=== PATIENT | female | born 1975 | race Caucasian/White ===

== ENCOUNTER 2016-10-20 13:41 | Outpatient (RCR) | payer OTHER ==
[~2016-10-20 13:41] MED LIST: AMPH20TA2 PO; CLON0.5T3 PO; DESV100T PO
== END 2016-12-05 15:15 | disposition home or self-care (01) ==
PROVIDERS: ATTEND Nurse Practitioner Community Health
DX: M79.652 Pain in left thigh (principal)

== ENCOUNTER → 2016-12-22 | Outpatient (CLI) | payer OTHER ==
--- NOTE | 2016-12-22 16:31 | Diagnostic Imaging Report ---
INDICATION: Left lower back pain. TECHNIQUE: Multiple real time johnson scale sonographic images were obtained of the pelvis transabdominally and endovaginally. CORRELATION STUDY: None. FINDINGS: UTERUS/ENDOMETRIUM: Uterus measures 8.4 x 3.3 x 4.0 cm. Endometrial thickness is 6 mm. The uterus and endometrium appearing unremarkable. RIGHT OVARY: Not able to be visualized. LEFT OVARY: Not able to be visualized. Ovaries are not visualized on either transabdominal or endovaginal imaging. This may be owing to patient's reported underlying body habitus versus obscuration by bowel. No significant free pelvic fluid. IMPRESSION: 1. Uterus and endometrium appearing unremarkable. 2. Nonvisualization of either ovary. Dictated by: Dictated on workstation # [id number]
== END ==
LOC: RAD 15:38
PROVIDERS: ATTEND Nurse Practitioner Community Health
DX: R10.2 Pelvic and perineal pain (principal); M54.5 Low back pain
CPT/HCPCS: 76830; 76856

== ENCOUNTER → 2019-08-22 | Outpatient (CLI) | payer OTHER ==
--- NOTE | 2019-08-22 13:02 | Diagnostic Imaging Report ---
PROCEDURE: MRI lumbar spine without contrast. TECHNIQUE: Multiplanar, multisequence MRI of the lumbar spine was performed without contrast. INDICATION: Chronic low back pain. COMPARISON: None. FINDINGS: 5 lumbar type vertebral bodies are visualized with the last well-formed disc space designated L5-S1. No acute fracture or dislocation is seen in the lumbar spine. Alignment is anatomic. Vertebral body heights and disc spaces are well-maintained. The bone marrow signal is normal. The conus terminates at the T12-L1 level. No masses are seen associated with the conus or nerve roots of the cauda equina. No epidural collections are identified. Multilevel degenerative changes are seen in the lumbar spine with disc bulges, facet hypertrophy, and buckling of the ligamentum flavum. T12-L1: No significant spinal canal or foraminal stenosis. L1-L2: No significant spinal canal or foraminal stenosis. L2-L3: No significant spinal canal or foraminal stenosis. L3-L4: No significant spinal canal or foraminal stenosis. L4-L5: Broad-based disc bulge, facet hypertrophy, and buckling of the ligamentum flavum results in no significant spinal canal stenosis and mild bilateral foraminal narrowing. L5-S1: Broad-based disc bulge, facet hypertrophy, and buckling of the ligamentum flavum results in no significant spinal canal stenosis and mild to moderate foraminal stenosis. A synovial cyst is protruding posteriorly from the left L5-S1 facet. Paravertebral soft tissues are unremarkable. IMPRESSION: 1. No acute fracture or dislocation in the lumbar spine. 2. Multilevel degenerative changes in the lumbar spine, greatest at L4-L5 and L5-S1. Dictated by: Dictated on workstation # [id number]
== END ==
LOC: RAD 12:05
PROVIDERS: ATTEND Nurse Practitioner Community Health
DX: M47.817 Spondylosis without myelopathy or radiculopathy, lumbosacral region (principal)
CPT/HCPCS: 72148

== ENCOUNTER → 2019-11-27 | Outpatient (CLI) | payer OTHER ==
[~2019-11-27] MED LIST changes: +BARIUM for suspension 96% w/w (Vanilla Silq Medium Density) PO ONE; +BARIUM for suspension 98% w/w (Vanilla Silq High Density) PO ONE
--- NOTE | 2019-11-27 11:38 | Diagnostic Imaging Report ---
INDICATION: Dysphagia. TECHNIQUE: The patient ingested effervescent crystals as well as thin and thick barium and imaging over the esophagus was performed in multiple obliquities. FINDINGS: The esophagus has a smooth contour. No mass or stricture is identified. No hiatal hernia or gastroesophageal reflux was demonstrated. IMPRESSION: Unremarkable esophagram. Dictated by: Dictated on workstation # [id number]
== END ==
LOC: RAD 08:46
PROVIDERS: ATTEND Surgery
DX: R47.02 Dysphasia (principal)
CPT/HCPCS: 74220

== ENCOUNTER 2019-12-02 10:12 | Outpatient (RCR) | payer OTHER ==
[~2019-12-02] VITALS: Ht 154 cm; Wt 118.0 kg
[~2019-12-02 10:12] MED LIST changes: -BARIUM for suspension 96% w/w (Vanilla Silq Medium Density) PO ONE; -BARIUM for suspension 98% w/w (Vanilla Silq High Density) PO ONE; +BUPR300T43 PO; +CLON0.5T4 PO
[2019-12-03] MEDS ORDERED: PANT40TA2 PO (13:21)
== END 2020-02-24 | disposition home or self-care (01) ==
LOC: PREOP 10:12
PROVIDERS: ATTEND Surgery
DX: Z01.818 Encounter for other preprocedural examination (principal); Z01.812 Encounter for preprocedural laboratory examination; K21.9 Gastro-esophageal reflux disease without esophagitis; R13.10 Dysphagia, unspecified; Z20.828 Contact with and (suspected) exposure to other viral communicable diseases
CPT/HCPCS: 87635

== ENCOUNTER 2019-12-03 12:24 | Day surgery (SDC) | payer OTHER ==
[2019-12-03] MEDS ORDERED: LACTATED RINGERS 1,000 ML IV ONE (12:28)
[2019-12-03] MEDS ORDERED: LACTATED RINGERS 1,000 ML IV STA (12:28)
[2019-12-03 12:30] VITALS: BP 125/73
[2019-12-03] MEDS ORDERED: proPOfol 200 MG/20 ML (DIPRIVAN) VIAL IV ONE ×2 (12:46→13:07)
[2019-12-03] MEDS ORDERED: MIDAZOLAM 2 MG/2 ML (VERSED) VIAL ONE (12:47)
[2019-12-03] MEDS ORDERED: HURRICAINE EXT TUBE (BENZOCAINE) XX ONE (13:00)
--- NOTE | 2019-12-03 13:02 | Progress Note-Pre Operative ---
Pre-Operative Progress Note H&P Reviewed The H&P was reviewed, patient examined and no changes noted. Date Seen by Provider: Dec 03, 2019 Time Seen by Provider: 13:02 Date H&P Reviewed: Dec 03, 2019 Time H&P Reviewed: 13:02 Pre-Operative Diagnosis: gerd, dysphagia ABDULLAHI WHITE DO Dec 03, 2019 13:02
[2019-12-03 13:15] VITALS: BP 105/57
[2019-12-03 13:20] VITALS: BP 107/53
--- NOTE | 2019-12-03 13:20 | Progress Note-Post Operative ---
Post-Operative Progess Note Surgeon (s)/[facility] (s) Surgeon ABDULLAHI WHITE DO [facility]: na Pre-Operative Diagnosis gerd, dysphagia Post-Operative Diagnosis gastritis Procedure & Operative Findings Date of Procedure 12/03/19 Procedure Performed/Findings egd c biopsies Anesthesia Type per [facility] Estimated Blood Loss Estimated blood loss (mL): none Specimens/Packing Specimens Removed antrum, body, ge ABDULLAHI WHITE DO Dec 03, 2019 13:20
[2019-12-03] MEDS ORDERED: PANT40TA2 PO (13:21)
--- NOTE | 2019-12-03 13:22 | Discharge Inst-Simple/Standard ---
Discharge Inst-Standard Discharge Medications New, Converted or Re-Newed RX: Transmitted to Pharmacy Patient Instructions/Follow Up Plan of Care/Instructions/FU: 2 weeks Thelma Activity as Tolerated: Yes Discharge Diet: Regular Diet ABDULLAHI WHITE DO Dec 03, 2019 13:21
[2019-12-03 13:25] VITALS: BP 107/53
--- NOTE | 2019-12-03 13:49 | Anesthesia-General Post-Op ---
MAC Patient Condition Mental Status/LOC: Same as Preop Cardiovascular: Satisfactory Nausea/Vomiting: Absent Respiratory: Satisfactory Pain: Controlled Complications: Absent Post Op Complications Complications None Follow Up Care/Instructions Patient Instructions None needed. Anesthesiology Discharge Order Discharge Order Patient was seen after the procedure and she was doing well, no complaints, stable vital signs, no apparent adverse anesthesia problems. ROGER REDDY DO Dec 03, 2019 13:49
[2019-12-03 13:50] VITALS: BP 110/62
--- OUTSIDE RECORDS SUMMARY | 2019-12-03 14:08 | XMS REPORT ---
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 Role Phone АНДРЕЙ White Unavailable PROBLEMS Type Condition ICD9-CM Code AHP76-AV Code Onset Dates Condition S tatus SNOMED Code Problem Hypertriglyceridemia E78.1 Active 066441317 Problem Obesity E66.9 Active 838313756 Problem Establishing care with new doctor, encounter for Z 71.89 Active 141581806 Problem Family history of early CAD Z82.49 Ac tive 199557310 Problem Fatigue R53.83 Active 61580687 Problem Ganglion cyst of left foot M67.472 Act olivia 816475162 Problem Finger fracture S62.609A Active 1817 1007 Problem Anxiety disorder, unspecified F41.9 Active 135692405 Problem Lumbago with sciatica, left side M54.42 Active 191771578 Problem Weakness R53.1 Active 36096827 Problem Other chronic pain G89.29 Active 8 1202139 Problem Family history of diabetes mellitus Z83.3 Active 832116373 Problem Attention deficit hyperactivity disorder F90.9 Active 672413346 Problem Major depressive disorder, recurrent episode wit h anxious distress F33.9 Active 48674610 Problem Menstrual migraine without status migrainosus, n ot intractable G43.829 Active 88375796 Problem Mixed hyperlipidemia E78.2 Active 558840182 ALLERGIES No Information ENCOUNTERS Encounter Location Date Diagnosis [facility] [address] [id number] [place] [address] Jun, [facility] [id number] [place] [address] Apr, Hypertriglyceridemia E78.1 and Hyperglyc emia R73.9 [facility] [id number] [place] [address] Apr, Lumbago with sciatica, left side M54.42 ; Other chronic pain G89.29 ; Family history of diabetes mellitus Z83.3 ; Mixed hyperlipidemia E78.2 ; Joint stiffness M25.60 ; Encounter for immunization Z23 and Breast cancer screening by mammogram Z12.31 [place] [address] [address] 20 Nov, 2018 Family history of early CAD Z82.49 ; Fam rosa history of diabetes mellitus Z83.3 and Fatigue R53.83 [place] [address] [address] 18 Nov, 2018 Encounter for screening mammogram for br east cancer Z12.31 ; Menstrual migraine without status migrainosus, not intractable G43.829 ; BMI 50.0-59.9, adult Z68.43 ; Family history of diabetes mellitus Z83.3 ; Family history of early CAD Z82.49 and Fatigue R53.[address] [address] 16 Jun, 2017 Attention deficit hyperactivity disorder F90.[address] [address] 02 Jun, 2017 Attention deficit hyperactivity disorder F90.9 ; Major depressive disorder, recurrent episode with anxious distress F33.9 and BMI 45.0-49.9, adult Z68.[address] [address] May, Major depressive disorder, recurrent epi sode with anxious distress F33.9 [place] [address] [address] Apr, Major depressive disorder, recurrent epi sode with anxious distress F33.9 and Attention deficit hyperactivity disorder F90.9 [place] [address] [address] Apr, [address] [address] Mar, Attention deficit hyperactivity disorder F90.9 and Major depressive disorder, recurrent episode with anxious distress F33.9 [place] [address] [address] Jan, [place] [address] [address] Dec, Anxiety disorder, unspecified F41.9 ; At tention deficit hyperactivity disorder F90.9 and Major depressive disorder, recurrent episode with anxious distress F33.9 [place] [address] [address] Dec, Acute midline low back pain without scia kirti M54.5 [place] [address] [address] Dec, [place] [address] [address] Dec, Pelvic pain R10.2 and Acute midline low back pain without sciatica M54.5 [place] [address] [address] Nov, [place] [address] [address] October, [place] [address] [address] October, [place] [address] [address] Sep, Well woman exam Z01.419 and Cervical can cer screening Z12.4 [place] [address] [address] Sep, [place] [address] [address] Sep, Plantar fasciitis, right M72.2 ; Left fo ot pain M79.672 and Trigger point of left side of body M79.1 [place] [address] [address] Aug, [place] [address] [address] Aug, Anxiety disorder, unspecified F41.9 ; At tention deficit hyperactivity disorder F90.9 and Major depressive disorder, recurrent episode with anxious distress F33.9 [facility] [address] [address] Jul, [facility] [address] [address] Jun, Attention deficit disorder of adult with hyperactivity F90.9 and Major depressive disorder, recurrent episode with anxious distress F33.9 [facility] [address] [place] [id number] [place] [address] Feb, Anxiety disorder, unspecified F41.9 ; Ma valencia depression F32.9 and Attention deficit hyperactivity disorder F90.9 [facility] [address] [id number] [place] [address] Jan, [place] [address] [address] Dec, [facility] [address] [address] Nov, [facility] [address] [address] October, Fatigue, unspecified type R53.83 [facility] [address] [address] October, [facility] [address] [address] October, Finger fracture S62.609A [facility] [address] [address] Sep, [facility] [address] [address] Sep, Finger fracture S62.609A [facility] [address] [address] Sep, [facility] [address] [address] Sep, [facility] [id number] [place] [address] Aug, Establishing care with new doctor, sana carrillo for Z71.89 ; Fatigue R53.83 ; Weakness R53.1 ; Ganglion cyst of left foot M67.472 ; Obesity E66.9 ; Family history of diabetes mellitus Z83.3 and Family history of early CAD Z82.49 [facility] [address] [address] 16 Aug, 2015 [facility] [address] [facility] [id number] [place] [address] 14 Aug, 2015 Fatigue R53.83 [place] [address] [address] Aug, Anxiety disorder, unspecified F41.9 ; Ma valencia depression F32.9 and Attention deficit hyperactivity disorder F90.9 [place] [address] [address] Jul, [place] [address] [address] Jun, [place] [address] [address] May, [place] [address] [address] Apr, [place] [address] [address] Apr, Attention deficit hyperactivity disorder F90.9 ; Major depression F32.9 and Anxiety disorder, unspecified F41.9 [place] [address] [address] Mar, [place] [address] [address] Mar, [facility] [address] [address] Feb, [place] [address] [place] [address] [place] [address] Feb, ADHD (attention deficit hyperactivity di sorder) 314.01 ; Major depressive disorder, recurrent episode, moderate 296.32 and Anxiety state, unspecified 300.00 [facility] [id number] [place] [address] Jan, [facility] [address] [address] Dec, [facility] [address] [address] Nov, [facility] [address] [address] October, [facility] [address] [address] October, Anxiety state, unspecified 300.00 ; Atte ntion deficit disorder of childhood with hyperactivity 314.01 and Major depressive disorder, recurrent episode, moderate 296.32 [facility] [address] [id number] [place] [address] Sep, [facility] [address] [address] Sep, [facility] [address] [address] Aug, [facility] [address] [address] Aug, [facility] [address] [address] Jul, [facility] [address] [address] Jul, [facility] [address] [address] October, [facility] [address] [address] October, [facility] [address] [address] October, [facility] [id number] [place] [address] October, [facility] [id number] [facility] [place] [address] October, [facility] [id number] [facility] [place] [address] Sep, [facility] [id number] [place] [address] Sep, [facility] [id number] [place] [address] Sep, [facility] [id number] [place] [address] Sep, [facility] [id number] [place] [address] Dec, [facility] [id number] [place] [address] Dec, [facility] [id number] [place] [address] Nov, [facility] [id number] [place] [address] Nov, [facility] [id number] [place] [address] Nov, [facility] [id number] [place] [address] Nov, [facility] [id number] [place] [address] Jul, [facility] [id number] [place] [address] Jul, [facility] [id number] [place] [address] Jul, [facility] [id number] [place] [address] Jul, [facility] [id number] [place] [address] 17 Mar, 2011 [facility] [id number] [place] [address] 14 Mar, 2011 [facility] [id number] [place] [address] 14 Mar, 2011 [facility] [id number] [place] [address] 11 Mar, 2011 [facility] [address] [address] 11 Mar, 2011 [facility] [id number] [place] [address] 14 May, 2010 [facility] [id number] [place] [address] 14 May, 2010 [facility] [id number] [place] [address] May, [facility] [id number] [place] [address] Mar, [facility] [id number] [place] [address] Mar, [facility] [id number] [place] [address] May, IMMUNIZATIONS No Known Immunizations SOCIAL HISTORY Never Assessed REASON FOR VISIT PLAN OF CARE VITAL SIGNS Height 62 in 2013-10-07 Weight 225.7 lbs 2013-10-07 Temperature 97.3 degrees Fahrenheit 2013-10-07 Heart Rate 80 bpm 2013-10-07 Respiratory Rate 18 2013-10-07 Blood pressure systolic 112 mmHg 2013-10-07 Blood pressure diastolic 74 mmHg 2013-10-07 MEDICATIONS Unknown Medications RESULTS No Results PROCEDURES Procedure Date Ordered Result Body Site SCR PAP SMER;NEW PT OBTAIN PREP&CONVY-LAB October 07, 2013 CYTOPATH C/V AUTO FLUID REDO October 07, 2013 INSTRUCTIONS MEDICATIONS ADMINISTERED No Known Medications MEDICAL (GENERAL) HISTORY Type Description Date Medical History ADD Medical History Depression Medical History High cholesterol Medical History Vitamin D deficiency Surgical History Baby #1 , or section 0 08/21/1997 Surgical History 1997 Surgical History Left ankle surgery Surgical History Tubal ligation 03/12/2002 Surgical History Left Ankle 01/10/1984 Hospitalization History Stitches in right hand finger next t o pinky Hospitalization History Surgery
--- OUTSIDE RECORDS SUMMARY | 2019-12-03 14:08 | XMS REPORT ---
Author Author Sirisha White Organization [facility] Address [address] [place] [address] Care Team Providers Care Plastics Process Hand Name Role Phone АНДРЕЙ White Unavailable PROBLEMS Type Condition ICD9-CM Code UPE68-HZ Code Onset Dates Condition S tatus SNOMED Code Problem Hypertriglyceridemia E78.1 Active 810133602 Problem Obesity E66.9 Active 469780220 Problem Establishing care with new doctor, encounter for Z 71.89 Active 242545509 Problem Family history of early CAD Z82.49 Ac tive 529900595 Problem Fatigue R53.83 Active 51234510 Problem Ganglion cyst of left foot M67.472 Act olivia 940231121 Problem Finger fracture S62.609A Active 1817 1007 Problem Anxiety disorder, unspecified F41.9 Active 381230181 Problem Lumbago with sciatica, left side M54.42 Active 380873690 Problem Weakness R53.1 Active 54018733 Problem Other chronic pain G89.29 Active 8 8467127 Problem Family history of diabetes mellitus Z83.3 Active 323917188 Problem Attention deficit hyperactivity disorder F90.9 Active 375486231 Problem Major depressive disorder, recurrent episode wit h anxious distress F33.9 Active 79479553 Problem Menstrual migraine without status migrainosus, n ot intractable G43.829 Active 46153714 Problem Mixed hyperlipidemia E78.2 Active 920341331 ALLERGIES No Information ENCOUNTERS Encounter Location Date Diagnosis [facility] [id number] [place] [address] Jul, [facility] [address] [address] Jul, Hyperglycemia R73.9 and Hypertriglycerid emia E78.1 [facility] [address] [id number] [place] [address] Jun, [place] [address] [address] Apr, Hypertriglyceridemia E78.1 and Hyperglyc emia R73.[address] [address] 04 Apr, 2019 Lumbago with sciatica, left side M54.42 ; Other chronic pain G89.29 ; Family history of diabetes mellitus Z83.3 ; Mixed hyperlipidemia E78.2 ; Joint stiffness M25.60 ; Encounter for immunization Z23 and Breast cancer screening by mammogram Z12.[address] [address] 20 Nov, 2017 Family history of early CAD Z82.49 ; Fam rosa history of diabetes mellitus Z83.3 and Fatigue R53.[address] [address] 18 Nov, 2017 Encounter for screening mammogram for br east cancer Z12.31 ; Menstrual migraine without status migrainosus, not intractable G43.829 ; BMI 50.0-59.9, adult Z68.43 ; Family history of diabetes mellitus Z83.3 ; Family history of early CAD Z82.49 and Fatigue R53.[address] [address] 16 Jun, 2017 Attention deficit hyperactivity disorder F90.[address] [address] Jun, Attention deficit hyperactivity disorder F90.9 ; Major depressive disorder, recurrent episode with anxious distress F33.9 and BMI 45.0-49.9, adult Z68.[address] [address] May, Major depressive disorder, recurrent epi sode with anxious distress F33.[address] [address] Apr, Major depressive disorder, recurrent epi sode with anxious distress F33.9 and Attention deficit hyperactivity disorder F90.[id number] [place] [address] Apr, [place] [address] [address] Mar, Attention deficit hyperactivity disorder F90.9 and Major depressive disorder, recurrent episode with anxious distress F33.9 [place] [address] [address] Jan, [place] [address] [address] Dec, Anxiety disorder, unspecified F41.9 ; At tention deficit hyperactivity disorder F90.9 and Major depressive disorder, recurrent episode with anxious distress F33.9 [place] [address] [address] Dec, Acute midline low back pain without scia kirti M54.5 [place] [address] [address] Dec, [place] [address] [address] Dec, Pelvic pain R10.2 and Acute midline low back pain without sciatica M54.5 [place] [address] [address] Nov, [place] [address] [address] October, [place] [address] [address] October, [place] [address] [address] Sep, Well woman exam Z01.419 and Cervical can cer screening Z12.4 [place] [address] [address] Sep, [place] [address] [address] Sep, Plantar fasciitis, right M72.2 ; Left fo ot pain M79.672 and Trigger point of left side of body M79.1 [facility] [address] [address] Aug, [facility] [address] [address] Aug, Anxiety disorder, unspecified F41.9 ; At tention deficit hyperactivity disorder F90.9 and Major depressive disorder, recurrent episode with anxious distress F33.9 [facility] [address] [address] Jul, [facility] [address] [address] Jun, Attention deficit disorder of adult with hyperactivity F90.9 and Major depressive disorder, recurrent episode with anxious distress F33.9 [facility] [address] [address] Feb, Anxiety disorder, unspecified F41.9 ; Ma valencia depression F32.9 and Attention deficit hyperactivity disorder F90.9 [place] [address] [address] Jan, [place] [address] [address] Dec, [facility] [address] [address] Nov, [facility] [address] [address] October, Fatigue, unspecified type R53.83 [facility] [address] [address] October, [facility] [address] [address] October, Finger fracture S62.609A [facility] [address] [address] Sep, [facility] [address] [address] Sep, Finger fracture S62.609A [place] [address] [address] Sep, [place] [address] [address] Sep, [place] [address] [address] Aug, Establishing care with new doctorsana for Z71.89 ; Fatigue R53.83 ; Weakness R53.1 ; Ganglion cyst of left foot M67.472 ; Obesity E66.9 ; Family history of diabetes mellitus Z83.3 and Family history of early CAD Z82.49 [place] [address] [address] 16 Aug, 2015 [facility] [address] [facility] [id number] [place] [address] Aug, Fatigue R53.83 [place] [address] [address] Aug, Anxiety disorder, unspecified F41.9 ; Ma valencia depression F32.9 and Attention deficit hyperactivity disorder F90.9 [place] [address] [address] Jul, [place] [address] [address] Jun, [place] [address] [address] May, [place] [address] [address] Apr, [place] [address] [address] Apr, Attention deficit hyperactivity disorder F90.9 ; Major depression F32.9 and Anxiety disorder, unspecified F41.9 [place] [address] [address] Mar, [facility] [address] [address] Mar, [facility] [address] [address] Feb, [facility] [address] [address] Feb, ADHD (attention deficit hyperactivity di sorder) 314.01 ; Major depressive disorder, recurrent episode, moderate 296.32 and Anxiety state, unspecified 300.00 [facility] [address] [address] Jan, [facility] [address] [address] Dec, [facility] [address] [address] Nov, [facility] [address] [address] October, [facility] [address] [address] October, Anxiety state, unspecified 300.00 ; Atte ntion deficit disorder of childhood with hyperactivity 314.01 and Major depressive disorder, recurrent episode, moderate 296.32 [facility] [address] [address] Sep, [facility] [address] [address] Sep, [facility] [address] [address] Aug, [facility] [address] [address] Aug, [facility] [address] [address] Jul, [facility] [address] [address] Jul, [facility] [address] [id number] [place] [address] October, [facility] [place] [facility] [address] [id number] [place] [address] October, [facility] [place] [facility] [address] [id number] [place] [address] October, [facility] [place] [facility] [address] [id number] [place] [address] October, [facility] [place] [facility] [address] [id number] [place] [address] October, [facility] [place] [facility] [address] [id number] [place] [address] Sep, [facility] [place] [facility] [address] [id number] [place] [address] Sep, [facility] [place] [facility] [address] [id number] [place] [address] Sep, [facility] [place] [facility] [address] [id number] [place] [address] Sep, [facility] [place] [facility] [address] [id number] [place] [address] Dec, [facility] [place] [facility] [address] [id number] [place] [address] Dec, [facility] [place] [facility] [address] [id number] [place] [address] Nov, [facility] [place] [facility] [address] [id number] [place] [address] Nov, [facility] [place] [facility] [address] [id number] [place] [address] Nov, [facility] [place] [facility] [address] [id number] [place] [address] Nov, [facility] [place] [facility] [address] [id number] [place] [address] Jul, [facility] [place] [facility] [address] [id number] [place] [address] Jul, [facility] [address] [id number] [place] [address] Jul, [facility] [id number] [place] [address] Jul, [facility] [address] [id number] [place] [address] Mar, [facility] [id number] [place] [address] Mar, [facility] [id number] [place] [address] Mar, [facility] [id number] [place] [address] Mar, [facility] [id number] [place] [address] Mar, [facility] [id number] [place] [address] May, [facility] [id number] [place] [address] May, [facility] [id number] [place] [address] May, [facility] [id number] [place] [address] Mar, [facility] [id number] [place] [address] Mar, [facility] [id number] [place] [address] May, IMMUNIZATIONS No Known Immunizations SOCIAL HISTORY Never Assessed REASON FOR VISIT PLAN OF CARE VITAL SIGNS MEDICATIONS Unknown Medications RESULTS No Results PROCEDURES No Known procedures INSTRUCTIONS MEDICATIONS ADMINISTERED No Known Medications MEDICAL [...]
--- OUTSIDE RECORDS SUMMARY | 2019-12-03 14:08 | XMS REPORT ---
Author Author Sirisha BURT Organization [facility] Address [address] [place] [address] Care Team Providers Care Automotive Technology Instructor Name Role Phone RAMSES BURT Unavailable PROBLEMS Type Condition ICD9-CM Code VLA05-JI Code Onset Dates Condition S tatus SNOMED Code Problem Establishing care with new doctor, encounter for Z 71.89 Active 694488938 Problem Hypertriglyceridemia E78.1 Active 017460670 Problem Fatigue R53.83 Active 42923685 Problem Obesity E66.9 Active 607236115 Problem Family history of diabetes mellitus Z83.3 Active 748206903 Problem Family history of early CAD Z82.49 Ac tive 941944797 Problem Finger fracture S62.609A Active 1817 1007 Problem Anxiety disorder, unspecified F41.9 Active 784994271 Problem Attention deficit hyperactivity disorder F90.9 Active 716033330 Problem Mixed hyperlipidemia E78.2 Active 934834342 Problem Ganglion cyst of left foot M67.472 Act olivia 655348101 Problem Dysphagia, unspecified type R13.10 Ac tive 92729511 Problem Weakness R53.1 Active 79869449 Problem Major depressive disorder, recurrent episode wit h anxious distress F33.9 Active 42523405 Problem Menstrual migraine without status migrainosus, n ot intractable G43.829 Active 00142785 Problem Lumbago with sciatica, left side M54.42 Active 057739432 Problem Other chronic pain G89.29 Active 8 [id number] ALLERGIES No Information ENCOUNTERS Encounter Location Date Diagnosis [facility] [address] [facility] [id number] [address] [place] [id number] Sep, [facility] [address] [facility] [id number] [address] [place] [id number] Aug, Arthralgia, unspecified join t M25.50 [facility] [address] [facility] [id number] [address] [place] [id number] Aug, [place] [address] [place] [id number] [address] [place] [address] Aug, Dysphagia, unspecified type R13.10 [place] [address] [place] [id number] [address] [place] [id number] 04 Aug, 2019 Other dysphagia R13.19 ; Hyp ertriglyceridemia E78.1 ; Arthralgia, unspecified joint M25.50 ; Low back pain M54.5 and Other chronic pain G89.29 [place] [address] [address] Aug, [place] [address] [address] Jul, Hypertriglyceridemia E78.1 ; Arthralgia, unspecified joint M25.50 ; Other dysphagia R13.19 ; Low back pain M54.5 and Other chronic pain G89.29 [place] [address] [address] Jul, Hyperglycemia R73.9 and Hype rtriglyceridemia E78.1 [place] [address] [address] Jun, [place] [address] [address] Apr, Hypertriglyceridemia E78.1 a nd Hyperglycemia R73.9 [place] [address] [address] Apr, Lumbago with sciatica, left side M54.42 ; Other chronic pain G89.29 ; Family history of diabetes mellitus Z83.3 ; Mixed hyperlipidemia E78.2 ; Joint stiffness M25.60 ; Encounter for immunization Z23 and Breast cancer screening by mammogram Z12.[address] [address] Nov, 2018 Family history of early CAD Z82.49 ; Family history of diabetes mellitus Z83.3 and Fatigue R53.83 [place] [address] [place] [id number] [address] [place] [id number] 18 Nov, 2017 Encounter for screening mamm ogram for breast cancer Z12.31 ; Menstrual migraine without status migrainosus, not intractable G43.829 ; BMI 50.0-59.9, adult Z68.43 ; Family history of diabetes mellitus Z83.3 ; Family history of early CAD Z82.49 and Fatigue R53.83 [place] [address] [place] [id number] [address] [place] [id number] Jun, Attention deficit hyperactiv ity disorder F90.[address] [address] Jun, Attention deficit hyperactiv ity disorder F90.9 ; Major depressive disorder, recurrent episode with anxious distress F33.9 and BMI 45.0-49.9, adult Z68.42 [place] [address] [address] May, Major depressive disorder, r ecurrent episode with anxious distress F33.[address] [address] Apr, Major depressive disorder, r ecurrent episode with anxious distress F33.9 and Attention deficit hyperactivity disorder F90.9 [place] [address] [place] [id number] [address] [place] [id number] Apr, [place] [address] [place] [id number] [address] [place] [id number] Mar, Attention deficit hyperactiv ity disorder F90.9 and Major depressive disorder, recurrent episode with anxious distress F33.9 [place] [address] [place] [id number] [address] [place] [phone] Jan, [place] [address] [place] [id number] [address] [place] [id number] Dec, Anxiety disorder, unspecifie d F41.9 ; Attention deficit hyperactivity disorder F90.9 and Major depressive disorder, recurrent episode with anxious distress F33.9 [facility] [address] [id number] [address] [place] [id number] 17 Dec, 2016 Acute midline low back pain without sciatica M54.5 [facility] [address] [id number] [address] [place] [id number] Dec, [facility] [address] [id number] [address] [place] [id number] Dec, Pelvic pain R10.2 and Acute midline low back pain without sciatica M54.5 [facility] [address] [id number] [address] [place] [id number] Nov, [facility] [address] [id number] [address] [place] [id number] October, [place] [address] [id number] [address] [place] [id number] October, [facility] [address] [id number] [address] [place] [id number] Sep, Well woman exam Z01.419 and Cervical cancer screening Z12.4 [facility] [address] [id number] [address] [place] [id number] Sep, [facility] [address] [id number] [address] [place] [id number] Sep, Plantar fasciitis, right M72 .2 ; Left foot pain M79.672 and Trigger point of left side of body M79.1 [facility] [address] [id number] [address] [place] [id number] Aug, [facility] [address] [id number] [address] [place] [id number] Aug, Anxiety disorder, unspecifie d F41.9 ; Attention deficit hyperactivity disorder F90.9 and Major depressive disorder, recurrent episode with anxious distress F33.9 [facility] [address] [id number] [address] [place] [id number] Jul, [facility] [address] [id number] [address] [place] [id number] Jun, Attention deficit disorder o f adult with hyperactivity F90.9 and Major depressive disorder, recurrent episode with anxious distress F33.9 [facility] [address] [id number] [address] [place] [id number] Feb, Anxiety disorder, unspecifie d F41.9 ; Major depression F32.9 and Attention deficit hyperactivity disorder F90.9 [facility] [address] [id number] [address] [place] [id number] Jan, [facility] [address] [id number] [address] [place] [id number] Dec, [facility] [address] [id number] [address] [place] [id number] Nov, [facility] [address] [id number] [address] [place] [id number] October, Fatigue, unspecified type R5 3.83 [facility] [address] [id number] [address] [place] [id number] October, [facility] [address] [id number] [address] [place] [id number] October, Finger fracture S62.609A [facility] [address] [id number] [address] [place] [id number] Sep, [facility] [address] [id number] [address] [place] [address] Sep, Finger fracture S62.609A [facility] [address] [id number] [address] [place] [id number] Sep, [facility] [address] [id number] [address] [place] [id number] Sep, [facility] [address] [id number] [address] [place] [id number] 30 Aug, 2015 Establishing care with chi bourne lisandraor, encounter for Z71.89 ; Fatigue R53.83 ; Weakness R53.1 ; Ganglion cyst of left foot M67.472 ; Obesity E66.9 ; Family history of diabetes mellitus Z83.3 and Family history of early CAD Z82.49 [facility] [address] [facility] [id number] [address] [place] [id number] 16 Aug, 2015 [facility] [address] [facility] [id number] [address] [place] [id number] 14 Aug, 2015 Fatigue R53.83 [facility] [address] [facility] [id number] [address] [place] [id number] Aug, Anxiety disorder, unspecifie d F41.9 ; Major depression F32.9 and Attention deficit hyperactivity disorder F90.9 [facility] [address] [facility] [id number] [address] [place] [id number] Jul, [facility] [address] [facility] [id number] [address] [place] [id number] Jun, [facility] [address] [facility] [id number] [address] [place] [id number] May, [facility] [address] [facility] [id number] [address] [place] [id number] Apr, [facility] [address] [facility] [id number] [address] [place] [id number] Apr, Attention deficit hyperactiv ity disorder F90.9 ; Major depression F32.9 and Anxiety disorder, unspecified F41.9 [facility] [address] [facility] [id number] [address] [place] [id number] Mar, [facility] [address] [facility] [id number] [address] [place] [id number] Mar, [facility] [address] [facility] [id number] [address] [place] [id number] Feb, [facility] [address] [facility] [id number] [address] [place] [id number] 16 Feb, 2015 ADHD (attention deficit hype ractivity disorder) 314.01 ; Major depressive disorder, recurrent episode, moderate 296.32 and Anxiety state, unspecified 300.00 [facility] [address] [id number] [address] [place] [id number] Jan, [facility] [address] [id number] [address] [place] [id number] Dec, [facility] [address] [id number] [address] [place] [id number] Nov, [facility] [address] [id number] [address] [place] [id number] October, [facility] [address] [facility] [id number] [address] [place] [id number] October, Anxiety state, unspecified 3 00.00 ; Attention deficit disorder of childhood with hyperactivity 314.01 and Major depressive disorder, recurrent episode, moderate 296.32 [facility] [address] [id number] [address] [place] [id number] Sep, [facility] [address] [id number] [address] [place] [id number] Sep, [facility] [address] [facility] [id number] [address] [place] [id number] Aug, [facility] [address] [id number] [address] [place] [id number] Aug, [facility] [address] [id number] [address] [place] [id number] Jul, [facility] [address] [id number] [address] [place] [id number] Jul, [facility] [address] [facility] [id number] [address] [place] [id number] October, [facility] [address] [facility] [id number] [address] [place] [id number] October, [facility] [address] [id number] [address] [place] [address], [place] [address] October, [facility] [address] [id number] [address] [place] [address], [place] [address] October, [facility] [address] [id number] [address] [place] [address], [place] [address] October, [facility] [address] [id number] [address] [place] [address], [place] [address] Sep, [facility] [address] [id number] [address] [place] [address], [place] [address] Sep, [facility] [address] [id number] [address] [place] [address], [place] [address] Sep, [facility] [address] [id number] [address] [place] [address], [place] [address] Sep, [facility] [address] [id number] [address] [place] [address], [place] [address] Dec, [facility] [address] [id number] [address] [place] [address], [place] [address] Dec, [facility] [address] [id number] [address] [place] [address], [place] [address] Nov, [facility] [address] [id number] [address] [place] [address], [place] [address] Nov, [facility] [address] [id number] [address] [place] [address], [place] [address] Nov, [facility] [address] [id number] [address] [place] [address], [place] [address] Nov, [facility] [address] [id number] [address] [place] [address], [place] [address] Jul, [facility] [address] [id number] [address] [place] [address], [place] [address] Jul, [facility] [address] [id number] [address] [place] [id number] Jul, [facility] [address] [id number] [address] [place] [id number] Jul, [facility] [address] [id number] [address] [place] [id number] 17 Mar, 2011 [facility] [address] [id number] [address] [place] [id number] 14 Mar, 2011 [facility] [address] [id number] [address] [place] [id number] 14 Mar, 2011 [facility] [address] [id number] [address] [place] [id number] Mar, [facility] [address] [id number] [address] [place] [id number] Mar, [facility] [address] [id number] [address] [place] [id number] 14 May, 2010 [facility] [address] [id number] [address] [place] [id number] May, [facility] [address] [id number] [address] [place] [id number] May, [facility] [address] [id number] [address] [place] [id number] Mar, [facility] [address] [id number] [address] [place] [id number] Mar, [facility] [address] [id number] [address] [place] [id number] May, IMMUNIZATIONS No Known Immunizations SOCIAL HISTORY Never Assessed REASON FOR VISIT PLAN OF CARE VITAL SIGNS Height 62 in 2012-07-17 Weight 221 lbs 2012-07-17 Temperature 99.1 degrees Fahrenheit 2012-07-17 Heart Rate 80 bpm 2012-07-17 Respiratory Rate 18 2012-07-17 Blood pressure systolic 110 mmHg 2012-07-17 Blood pressure diastolic 70 mmHg 2012-07-17 MEDICATIONS Unknown Medications RESULTS No Results PROCEDURES [...]
--- OUTSIDE RECORDS SUMMARY | 2019-12-03 14:08 | XMS REPORT ---
Author Author [employer] management engineer [employer] [facility] [employer] [facility] iCurrent Address [address] [address] Care Team Providers Care Lehr Loader Name Role Phone QUINCY, DARSHAN Unavailable Unavailable QUINCY, DARSHAN Unavailable CARMEL, RAMSES Unavailable Unavailable zzANTONY, DARSHAN Unavailable zzANTONY, DARSHAN Unavailable zzANTONY, DARSHAN Unavailable zzANTONY, DARSHAN Unavailable CARMEL, RAMSES Unavailable zzANTONY, DARSHAN Unavailable ANGLETON, MARIANELA Unavailable ANGLETON, MARIANELA Unavailable ANGLETON, MARIANELA Unavailable ANGLETON, MARIANELA Unavailable ANGLETON, MARIANELA Unavailable CARMEL, RAMSES Unavailable CARMEL, RAMSES Unavailable CARMEL, RAMSES FIRESETTER Unavailable Unavailable Migration, Doctor Unavailable Unavailable Migration, Doctor Unavailable Unavailable Migration, Doctor Unavailable Unavailable zzANTONY, DARSHAN Unavailable Unavailable Unavailable zzHEIMAN, АНДРЕЙ Unavailable ALIRIO Sarmiento Unavailable zzHEIMAN, АНДРЕЙ Unavailable CARMEL, RAMSES S Unavailable Unavailable CARMEL FIRESETTER, RAMSES Unavailable Unavailable CARMEL, RAMSES Unavailable zzHEIMAN, АНДРЕЙ Unavailable WHITE DO, ABDULLAHI D Unavailable Unavailable Unavailable Unavailable Unavailable Unavailable Unavailable Unavailable Unavailable Unavailable Allergies Normalized Allergy Reported Date of Reaction(s) Care Provider Facility Allergy Type classification allergen Allergy Onset DA (13 Unclassified No Known Drug 02-03-2011 - no information MIGUEL Not Available sources.) Allergies MD LEE ANN ([id number]) Medications The data below is from unstructured sourcesNo Known Medications No Known Medications No Known Medications No Known Medications No Known Medications No Known Medications No Known Medications Unknown Medications Unknown Medications Unknown Medications Unknown Medications Unknown Medications Unknown Medications Unknown Medications No Known Medications No Known Medications No Known Medications No Known Medications No Known Medications No Known Medications Unknown Medications No Known Medications Problems Active Problems Problem Normalized Date Last Normalized Normalized Provider Fa cility Classification Problem(s) Recorded Problem Problem Sta tus Duration Other Pain in left 11-26-2019 - Episodic Active RAMSES BREN NAN Not Available connective thigh (77202) tissue disease (14 sources.) Spondylosis; Spondylosis 11-26-2019 - Chronic Active RAMSES B RENNAN [facility] intervertebral without , [facility] disc myelopathy or Hospital - disorders; radiculopathy, [place] other back lumbosacral (66492) problems (7 region sources.) Past or Other Problems Problem Normalized Date Last Normalized Normalized Provider Fa cility Classification Problem(s) Recorded Problem Problem Sta tus Duration Other lower Hyperventilati Episodic Completed MIGUEL Not A vailable respiratory on MD LEE ANN (49009) disease (2 sources.) Other Pain in joint, Episodic Completed MIGUEL Not Mary ilable non-traumatic shoulder MD LEE ANN ([id number]) joint region disorders (3 sources.) Procedures Procedure Normalized Procedure Procedure Result Performer Facility Date 10-07-2013 Cytp c/v auto thin lyr no information no name [facility] prepj scr mnl rescr [facility] ([id number]) 10-07-2013 Obtaining screen pap no information no name [facility] (26024) Immunizations Normalized Immunization Date Notes Care Provider Facili ty Immunization influenza, seasonal, 04-15-2019 no information no name Co [facility] injectable [facility] [address] [facility] ([id number]) Results Test Name Value Interpretation Reference Range Date Time Fa cility (Normalized) (Normalized) (Medline Reference) laboratory on 2019-08-07 TSH Qn 1.52 m[IU]/L (N) 0.4 - 4 m[IU]/L [facility] (64767) laboratory on 2019-07-24 Cholesterol 211 mg/dL (H) 180 - 200 mg/dL [facility] Health [Mass/Vol] [facility] (63420) Cholesterol in 47 mg/dL (L) [facility] HDL [Mass/Vol] [facility] (46300) Cholesterol in 132 mg/dL (H) 0 - 100 mg/dL [facility] LDL [Mass/Vol] [facility] (34332) Cholesterol non 164 mg/dL (H) Critical access hospital HDL [Mass/Vol] [facility] (47277) Cholesterol.tota 4.5 {ratio} (N) [facility] Hea [facility] l/Cholesterol in [facility] HDL [Mass ratio] [facility] (34322) HbA1c (Bld) 5.7 (H) [facility] [Mass fraction] [facility] () Triglyceride 180 mg/dL (H) 0 - 150 mg/dL [facility] [Mass/Vol] [facility] (15491) not yet categorized on 2019-04-15 Exp date Jan 2021 (no code) [facility] () Lot 5.7~5.6~0552 (no code) [facility] (51269) laboratory on 2019-04-15 Albumin 4.3 g/dL (N) 3.4 - 5.4 g/dL [facility] [Mass/Vol] [facility] (54822) Albumin/Globulin 1.4 {ratio} (N) 1 - 2.5 {ratio} [facility] [Mass ratio] [facility] (39644) ALP [Catalytic 101 U/L (N) 44 - 147 U/L [facility] activity/Vol] [facility] (04010) ALT [Catalytic 21 U/L (N) 4 - 40 U/L [facility] activity/Vol] [facility] (45036) AST [Catalytic 18 U/L (N) 10 - 34 U/L [facility] activity/Vol] [facility] (68939) Bilirubin 0.3 mg/dL (N) 0.1 - 1.2 mg/dL [facility] [Mass/Vol] [facility] (54267) Calcidiol 31 ng/mL (N) 20 - 50 ng/mL [facility] [Mass/Vol] [facility] (81000) Calcium 9.1 mg/dL (N) 8.5 - 10.2 mg/dL [facility] [Mass/Vol] [facility] (57464) Chloride 103 mmol/L (N) 95 - 106 mmol/L [facility] [Moles/Vol] [facility] (33824) Cholesterol 228 mg/dL (H) 180 - 200 mg/dL [facility] [Mass/Vol] [facility] (33576) Cholesterol in 47 mg/dL (L) [facility] HDL [Mass/Vol] [facility] (15322) Cholesterol in 0 mg/dL (no code) 0 - 100 mg/dL [facility] LDL [Mass/Vol] [facility] (30718) Cholesterol non 181 mg/dL (H) Critical access hospital HDL [Mass/Vol] [facility] (24917) Cholesterol.tota 4.9 {ratio} (N) [facility] l/Cholesterol in [facility] HDL [Mass ratio] [facility] (67685) CO2 [Moles/Vol] 29 mmol/L (N) 23 - 29 mmol/L [facility] (61071) Creatinine 0.58 mg/dL (N) [facility] [Mass/Vol] [facility] (72963) GFR/1.73 sq M 132 (N) 90 - 120 [facility] predicted among mL/min/{1.73_m2} mL/min/{1.73_m2} Center o f [facility] blacks MDRD [facility] (S/P/Bld) [Vol (78244) rate/Area] GFR/1.73 sq 114 (N) 90 - 120 Critical access hospital M.predicted MDRD mL/min/{1.73_m2} mL/min/{1.73_m2} [facility] (S/P/Bld) [Vol [facility] rate/Area] (99386) Globulin (S) 3.0 g/dL (N) 2 - 3.5 g/dL [facility] [Mass/Vol] [facility] (00942) Glucose 113 mg/dL (H) 60 - 125 mg/dL [facility] [Mass/Vol] [facility] (65875) Nuclear Ab IF 1:40 (H) [facility] (S) [Titer] [facility] (17449) Nuclear Ab IF Ql Positive (A) [facility] (S) [facility] () Nuclear Ab Nuclear, (A) [facility] h pattern IF (S) Spe[facility]led [facility] [Interp] [facility] (08427) Potassium 4.0 mmol/L (N) 3.7 - 5.2 mmol/L [facility] [Moles/Vol] [facility] (18826) Protein 7.3 g/dL (N) 6.4 - 8.3 g/dL [facility] [Mass/Vol] [facility] (24798) Rheumatoid [IU]/mL (N) 0 - 15 [IU]/mL [facility] factor Qn [facility] (37676) Sodium 141 mmol/L (N) 135 - 145 mmol/L [facility] [Moles/Vol] [facility] (48489) Triglyceride 503 mg/dL (H) 0 - 150 mg/dL [facility] [Mass/Vol] [facility] (81915) Urea nitrogen 16 mg/dL (N) 7 - 20 mg/dL [facility] [Mass/Vol] [facility] (26693) Urea NOT APPLICABLE (no code) [facility] nitrogen/Creatin [facility] [Mass ratio] [facility] (67080) other on 2017-11-29 Cholesterol in 148 (H) [facility] LDL mass conc [facility] (38182) Cholesterol non 198 (H) [facility] HDL mass conc [facility] (69075) Cholesterol.tota 5.6 (H) [facility] l/Cholesterol in [facility] HDL mass ratio [facility] (44980) metabolic panel on 2017-11-29 Hemoglobin 5.4 (N) [facility] Healt h A1c/Hemoglobin.t Center [facility] otal mass [facility] fraction (Bld) (49219) hematology on 2017-11-29 Basophils Auto 0.05 10*3/uL (N) 0 - 0.3 10*3/uL Comm [facility] #/vol (Bld) [facility] (63114) Basophils/100 0.8 % (N) 0.5 - 1 % [facility] He alth WBC Auto (Bld) [facility] (38521) Eosinophils Auto 0.12 10*3/uL (N) 0.05 - 0.5 [facility] #/vol (Bld) 10*3/uL [facility] (72197) Eosinophils/100 1.9 % (N) 1 - 4 % [facility] WBC Auto (Bld) [facility] (61539) Erythrocyte 14.0 % (N) 11.6 - 14.6 % [facility] ealth distribution [facility] width Auto Ratio [facility] (RBC) (19970) Hematocrit Auto 38.5 % (N) 36.1 - 50.3 % [facility] Volume Fraction [facility] (Bld) [facility] (29186) Hemoglobin mass 12.8 g/dL (N) 12.1 - 17.2 g/dL [facility] Health conc (Bld) [facility] (32252) Lymphocytes Auto 2.098 10*3/uL (N) 0.9 - 2.9 [facility] Health #/vol (Bld) 10*3/uL [facility] (35442) Lymphocytes/100 33.3 % (N) 20 - 40 % [facility] WBC Auto (Bld) [facility] (68964) MCH Auto Entitic 29.4 pg (N) 27 - 31 pg [facility] (RBC) [facility] (05338) MCHC Auto mass 33.2 g/dL (N) 32 - 36 g/dL [facility] conc (RBC) [facility] (73614) MCV Auto Entitic 88.3 fL (N) 80 - 100 fL Communit y [facility] volume (RBC) [facility] (16252) Monocytes Auto 0.529 10*3/uL (N) 0.3 - 0.9 [facility] Health #/vol (Bld) 10*3/uL [facility] (44919) Monocytes/100 8.4 % (N) 2 - 8 % [facility] WBC Auto (Bld) [facility] (95745) Neutrophils Auto 3.503 10*3/uL (N) 1.7 - 7 10*3/uL [facility] #/vol (Bld) [facility] (12541) Neutrophils/100 55.6 % (N) 40 - 60 % [facility] Health WBC Auto (Bld) [facility] (78195) Platelet mean 9.9 fL (N) 7.2 - 11.7 fL [facility] Health volume Auto [facility] Entitic [facility] (Bld) (67970) Platelets Auto 293 10*3/uL (N) 150 - 450 [facility] H ealth #/vol (Bld) 10*3/uL [facility] (92101) RBC Auto #/vol 4.36 10*6/uL (N) 4.2 - 6.1 [facility] Health (Bld) 10*6/uL [facility] (11790) WBC Auto #/vol 6.3 10*3/uL (N) 3.5 - 10.5 [facility] H ealth (Bld) 10*3/uL [facility] (81055) cardiac on 2017-11-29 Cholesterol in 43 mg/dL (L) [facility] Healt h HDL mass conc [facility] (27026) Cholesterol mass 241 mg/dL (H) 180 - 200 mg/dL [facility] conc [facility] (88825) Triglyceride 323 mg/dL (H) 0 - 150 mg/dL [facility] mass conc [facility] (85966) other on 2016-12-16 Erythrocyte 14.0 % (no code) 11.6 - 14.6 % 12-16-2016 Not Av ailable distribution 08:07-0400 (33769) width (RBC) [Ratio] Immature 0.1 10*3/uL (no code) 0 - 0.2 10*3/uL 12-16-2016 Not Available granulocytes 08: (91618) (Bld) [#/Vol] Immature 1 % (no code) 0 - 0.5 % 12-16-2016 Not Availabl e granulocytes/100 08: (37378) WBC (Bld) MCHC (RBC) 33.6 g/dL (no code) 32 - 36 g/dL 12-16-2016 Not Avai lable [Mass/Vol] 08: (37285) hematology on 2016-12-16 Basophils (Bld) 0.1 10*3/uL (no code) 0 - 0.3 10*3/uL 12-16-2016 Not Available [#/Vol] 08: (99760) Basophils/100 1 % (no code) 0.5 - 1 % 12-16-2016 Not Avai lable WBC (Bld) 08: (11289) Eosinophils 0.2 10*3/uL (no code) 0.05 - 0.5 12-16-2016 Not Mary ilable (Bld) [#/Vol] 10*3/uL 08: (29632) Eosinophils/100 3 % (no code) 1 - 4 % 12-16-2016 Not Av ailable WBC (Bld) 08: (60267) Hematocrit (Bld) 37.5 % (no code) 36.1 - 50.3 % 12-16-2016 N ot Available [Volume 08: (97760) fraction] Hemoglobin (Bld) 12.6 g/dL (no code) 12.1 - 17.2 g/dL 12-16-2016 Not Available [Mass/Vol] 08: (36210) Lymphocytes 2.6 10*3/uL (no code) 0.9 - 2.9 12-16-2016 Not Avai lable (Bld) [#/Vol] 10*3/uL 08: (44218) Lymphocytes/100 33 % (no code) 20 - 40 % 12-16-2016 Not Av ailable WBC (Bld) 08: (33610) MCH (RBC) 29.3 pg (no code) 27 - 31 pg 12-16-2016 Not Availab le [Entitic mass] 08: (25043) MCV (RBC) 87 fL (no code) 80 - 100 fL 12-16-2016 Not Availa ble [Entitic vol] 08: (90609) Monocytes (Bld) 0.6 10*3/uL (no code) 0.3 - 0.9 12-16-2016 Not Available [#/Vol] 10*3/uL 08: (35047) Monocytes/100 8 % (no code) 2 - 8 % 12-16-2016 Not Avai lable WBC (Bld) 08: (50382) Neutrophils 4.3 10*3/uL (no code) 1.7 - 7 10*3/uL 12-16-2016 No t Available (Bld) [#/Vol] 08: (63436) Neutrophils/100 54 % (no code) 40 - 60 % 12-16-2016 Not Av ailable WBC (Bld) 08: (68620) Platelets (Bld) 319 10*3/uL (no code) 150 - 450 12-16-2016 Not Available [#/Vol] 10*3/uL 08: (36180) RBC (Bld) 4.30 10*6/uL (no code) 4.2 - 6.1 12-16-2016 Not Avail able [#/Vol] 10*6/uL 08: (18244) WBC (Bld) 7.9 10*3/uL (no code) 3.5 - 10.5 12-16-2016 Not Avail able [#/Vol] 10*3/uL 08:0 (41387) cardiac on 2016-12-16 CRP [Mass/Vol] 8.9 mg/L (H) 0 - 8 mg/L 12-16-2016 Not Av ailable 12:16-0400 (35661) other on 2016-10-02 Director Speech Cyto Comment (no code) 10-02-2016 Not Availa ble stain ID Nom 12:35-0400 ([id number]) (Cervical or vaginal smear or scraping) Diagnosis ICD Comment (no code) 10-02-2016 Not Availabl e code 12:35-0400 (25373) [Identifier] Microscopic . (no code) 10-02-2016 Not Available observation 12:350400 (99032) Other stain Nom (Unsp spec) Note: Comment (no code) 10-02-2016 Not Available 12:350 (08893) Statement of Comment (no code) 10-02-2016 Not Available adequacy Cyto 12:35 (99713) stain Interp (Cervical or vaginal smear or scraping) imm/path on 2016-10-02 Pathology report Comment (no code) 10-02-2016 Not Avail able final diagnosis 12:35 (90028) Narrative imm/path on 2016-09-30 HPV Negative (no code) 09-30-2016 Not Available 16+18+31+33+35+3 23: (97737) 9+45+51+52+56+58 +59+68 DNA Probe+sig amp Ql (Cvx) Vital Signs Vital Sign Value Interpretation Reference Date Time Care [facility] ider Facility (Normalized) (Normalized) Range Body height 157.48 cm (no code) cm 10-07-2013 [facility] 19:25-[address] [place] [address] (21183) Body height 157.48 cm (no code) cm 07-17-2012 [facility] 14:44-0500 22090 [facility] (18173) Body 97.3 [degF] (no code) 97.8 - 99.0 10-07-2013 [facility] [degF[facility] 19:25-0400 97321 [facility] (81056) Body 99.1 [degF] (no code) 97.8 - 99.0 07-17-2012 [facility] temperature [degF] 14:44-0500 23957 [facility] (29802) Body weight 102.38 kg (no code) kg 10-07-2013 [facility] 19:25-0400 78736 [facility] (43529) Body weight 100.25 kg (no code) kg 07-17-2012 RAMSES ROMERO [facility] 14:68-2558 09046 [facility] (46062) Interventions No Information Plan of Treatment The data below is from unstructured sources Activity Details Follow Up 3 Months Reason: Activity Details Follow Up prn Reason: Activity Details Follow Up 4 Months Reason: Activity Details Follow Up 4 Weeks Reason: Goals No Information Social History No Information Functional Status No Information Mental Status No Information Encounters Encounter Normalized Encounter Encounter Diagnosis Care Provi joseph Organization Date Type 05-26-2011 Emergency department no information no name no organization name - patient visit 05-26-2011 11-29-2017 Patient encounter no information no name no or ganization name 11-27-2017 Patient encounter no information no name no or ganization name 12-22-2016 Patient encounter no information no name no or ganization name 10-20-2016 Patient encounter no information no name no or ganization name - 12-05-2016 11-26-2019 Patient encounter no information ABDULLAHI WHITE DO (no [facility] procedure phone) [facility] (no phone) 11-07-2019 Patient encounter no information RAMSES S CARMEL ( no [facility]) [facility] (no phone) 10-10-2019 Patient encounter no information RAMSES S CARMEL ( no [facility] procedure phone) [facility] (no phone) 08-22-2019 Patient encounter no information RAMSES CARMEL ARN P [facility] procedure (no phone) [facility] (no phone) 08-14-2019 Patient encounter no information RAMSES S CARMEL ( no [facility] procedure phone) (no phone) [facility] (no phone) 08-07-2019 Patient encounter no information (no phone) [facility] procedure [facility] (no phone) 07-24-2019 Patient encounter no information (no phone[facility] (no phone) 04-15-2019 Patient encounter no information no name no or ganization name procedure 12-22-2016 Patient encounter no information RAMSES CARMEL ARN P [facility] procedure (no phone) [facility] g (no phone) 10-20-2016 Patient encounter no information RAMSES Cole [facility] - procedure (no phone) [facility] [place] 12-05-2016 (no phone) 10-10-2016 Patient encounter no information no name no or ganization name procedure 10-05-2016 Patient encounter no information no name no or ganization name procedure 10-03-2016 Patient encounter no information no name no or ganization name procedure 09-29-2016 Patient encounter no information no name no or ganization name procedure Medical Equipment No Information Payers No Information Summary Purpose eClinicalWorks SubmissioneClinicalWorks SubmissioneClinicalWorks SubmissioneClinicalWorks SubmissioneClinicalWorks SubmissioneClinicalWorks SubmissioneClinicalWorks SubmissioneClinicalWorks SubmissioneClinicalWorks SubmissioneClinicalWorks SubmissioneClinicalWorks SubmissioneClinicalWorks Submission Additional Source Comments This clinical document has been generated using [employer] software that has been certified by the Office of the National Coordinator for Health Information Technology (ONC 15.99.04.3023.Diam.31.00.0.772851) and the National Committee for Tile Mechanic Helper (NCQA, as an eMeasure certified technology). FOR RECORDS PERTAINING TO PATIENTS WHO ARE OR HAVE BEEN ENROLLED IN A CHEMICAL D EPENDENCY/SUBSTANCE ABUSE PROGRAM, SOME INFORMATION MAY BE OMITTED. This clinica l summary was aggregated from multiple sources. Caution should be exercised in using it in the provision of clinical care. This summary normalizes information from multiple sources, and as a consequence, information in this document may ma terially change the coding, format and clinical context of patient data. In carson tion, data may be omitted in some cases. CLINICAL DECISIONS SHOULD BE BASED ON T HE PRIMARY CLINICAL RECORDS. [employer]. provides no warranty or guara ntee of the accuracy or completeness of information in this document.The followi ng information is based on time limited clinical information UNRECOGNIZED CONTENT PROVIDED BELOW FOR UNRECOGNIZED SECTION MEDICAL (GENERAL) HISTORY Type Description Date Medical History ADD Medical History Depression Medical History High cholesterol Medical History Vitamin D deficiency Surgical History 1997 Surgical History Left ankle surgery Hospitalization History Stitches in right hand finger next to pinky Hospitalization History Surgery Type Description Date Medical History ADD Medical History Depression Medical History High cholesterol Medical History Vitamin D deficiency Surgical History Baby #1 , or section 08/21/1997 Surgical History 1997 Surgical History Left ankle surgery Surgical History Tubal ligation 03/12/2002 Surgical History Left Ankle 01/10/1984 Hospitalization History Baby #2 02/24/2000 Hospitalization History Stitches in right hand finger next to pinky Hospitalization History Baby #3 02/11/2002 Hospitalization History Surgery UNRECOGNIZED CONTENT PROVIDED BELOW FOR UNRECOGNIZED SECTION REASON FOR VISIT [facility] Ex[facility], PT has no additional concerns but does want labs-[place] GABRIELR- CsbLOX-OniZKY-Grb
--- OUTSIDE RECORDS SUMMARY | 2019-12-03 14:08 | XMS REPORT ---
Author Author Sirisha Sarmiento Organization [facility] Address [address] [place] [address] Care Team Providers Care Worker'S Compensation Claims Examiner Name Role Phone ALIRIO Sarmiento Unavailable PROBLEMS Type Condition ICD9-CM Code UPT23-AP Code Onset Dates Condition S tatus SNOMED Code Problem Hypertriglyceridemia E78.1 Active 042437616 Problem Obesity E66.9 Active 294902677 Problem Establishing care with new doctor, encounter for Z 71.89 Active 939418188 Problem Family history of early CAD Z82.49 Ac tive 510795013 Problem Fatigue R53.83 Active 36178509 Problem Ganglion cyst of left foot M67.472 Act olivia 393337317 Problem Finger fracture S62.609A Active 1817 1007 Problem Anxiety disorder, unspecified F41.9 Active 203611804 Problem Lumbago with sciatica, left side M54.42 Active 876016276 Problem Weakness R53.1 Active 90870746 Problem Other chronic pain G89.29 Active 8 5048732 Problem Family history of diabetes mellitus Z83.3 Active 064954225 Problem Attention deficit hyperactivity disorder F90.9 Active 167846493 Problem Major depressive disorder, recurrent episode wit h anxious distress F33.9 Active 68108464 Problem Menstrual migraine without status migrainosus, n ot intractable G43.829 Active 87528898 Problem Mixed hyperlipidemia E78.2 Active 113220037 ALLERGIES No Information ENCOUNTERS Encounter Location Date Diagnosis [facility] [address] [id number] [place] [address] Jul, [facility] [address] [place] [id number] [place] [address] Jul, Hyperglycemia R73.9 and Hypertriglycerid emia E78.1 [facility] [address] [id number] [place] [address] Jun, [place] [address] [address] Apr, Hypertriglyceridemia E78.1 and Hyperglyc emia R73.[address] [address] Apr, Lumbago with sciatica, left side M54.42 ; Other chronic pain G89.29 ; Family history of diabetes mellitus Z83.3 ; Mixed hyperlipidemia E78.2 ; Joint stiffness M25.60 ; Encounter for immunization Z23 and Breast cancer screening by mammogram Z12.[address] [address] 20 Nov, 2017 Family history of early CAD Z82.49 ; Fam rosa history of diabetes mellitus Z83.3 and Fatigue R53.[address] [address] 18 Nov, 2017 Encounter for screening mammogram for br east cancer Z12.31 ; Menstrual migraine without status migrainosus, not intractable G43.829 ; BMI 50.0-59.9, adult Z68.43 ; Family history of diabetes mellitus Z83.3 ; Family history of early CAD Z82.49 and Fatigue R53.[address] [address] 16 Jun, 2017 Attention deficit hyperactivity disorder F90.[address] [address] Jun, Attention deficit hyperactivity disorder F90.9 ; Major depressive disorder, recurrent episode with anxious distress F33.9 and BMI 45.0-49.9, adult Z68.[address] [address] May, Major depressive disorder, recurrent epi sode with anxious distress F33.[address] [address] Apr, Major depressive disorder, recurrent epi sode with anxious distress F33.9 and Attention deficit hyperactivity disorder F90.9 [place] [address] [address] Apr, [place] [address] [address] Mar, Attention deficit hyperactivity disorder F90.9 and Major depressive disorder, recurrent episode with anxious distress F33.9 [place] [address] [address] Jan, [place] [address] [address] Dec, Anxiety disorder, unspecified F41.9 ; At tention deficit hyperactivity disorder F90.9 and Major depressive disorder, recurrent episode with anxious distress F33.9 [place] [address] [address] Dec, Acute midline low back pain without scia kirti M54.5 [place] [address] [address] Dec, [place] [address] [address] Dec, Pelvic pain R10.2 and Acute midline low back pain without sciatica M54.5 [place] [address] [address] Nov, [place] [address] [address] October, [place] [address] [address] October, [place] [address] [address] Sep, Well woman exam Z01.419 and Cervical can cer screening Z12.4 [place] [address] [address] Sep, [place] [address] [address] Sep, Plantar fasciitis, right M72.2 ; Left fo ot pain M79.672 and Trigger point of left side of body M79.1 [facility] [address] [address] Aug, [facility] [address] [address] Aug, Anxiety disorder, unspecified F41.9 ; At tention deficit hyperactivity disorder F90.9 and Major depressive disorder, recurrent episode with anxious distress F33.9 [place] [address] [address] Jul, [place] [address] [address] Jun, Attention deficit disorder of adult with hyperactivity F90.9 and Major depressive disorder, recurrent episode with anxious distress F33.9 [place] [address] [address] Feb, Anxiety disorder, unspecified F41.9 ; Ma valencia depression F32.9 and Attention deficit hyperactivity disorder F90.9 [place] [address] [address] Jan, [place] [address] [address] Dec, [place] [address] [address] Nov, [place] [address] [address] October, Fatigue, unspecified type R53.83 [facility] [address] [address] October, [place] [address] [address] October, Finger fracture S62.609A [facility] [address] [address] Sep, [place] [address] [address] Sep, Finger fracture S62.609A [facility] [address] [address] Sep, [facility] [address] [address] Sep, [place] [address] [address] 30 Aug, 2015 Establishing care with new doctorsana for Z71.89 ; Fatigue R53.83 ; Weakness R53.1 ; Ganglion cyst of left foot M67.472 ; Obesity E66.9 ; Family history of diabetes mellitus Z83.3 and Family history of early CAD Z82.49 [place] [address] [address] 16 Aug, 2015 [facility] [address] [facility] [id number] [place] [address] 14 Aug, 2015 Fatigue R53.83 [place] [address] [address] Aug, Anxiety disorder, unspecified F41.9 ; Ma valencia depression F32.9 and Attention deficit hyperactivity disorder F90.9 [place] [address] [address] Jul, [place] [address] [address] Jun, [place] [address] [address] May, [place] [address] [address] Apr, [place] [address] [address] Apr, Attention deficit hyperactivity disorder F90.9 ; Major depression F32.9 and Anxiety disorder, unspecified F41.9 [place] [address] [address] Mar, [facility] [id number] [place] [address] Mar, [facility] [address] [place] [id number] [place] [address] Feb, [facility] [address] [id number] [place] [address] Feb, ADHD (attention deficit hyperactivity di sorder) 314.01 ; Major depressive disorder, recurrent episode, moderate 296.32 and Anxiety state, unspecified 300.00 [facility] [address] [place] [address] [id number] [place] [address] Jan, [facility] [address] [address] Dec, [facility] [address] [address] Nov, [facility] [address] [address] October, [facility] [address] [address] October, Anxiety state, unspecified 300.00 ; Atte ntion deficit disorder of childhood with hyperactivity 314.01 and Major depressive disorder, recurrent episode, moderate 296.32 [facility] [id number] [place] [address] Sep, [facility] [address] [address] Sep, [facility] [address] [id number] [place] [address] Aug, [facility] [address] [address] Aug, [facility] [address] [place] [address] [id number] [place] [address] Jul, [facility] [address] [address] Jul, [facility] [address] [id number] [place] [address] October, [facility] [address] [id number] [place] [address] October, [facility] [address] [id number] [place] [address] October, [facility] [address] [id number] [place] [address] October, [facility] [address] [id number] [place] [address] October, [facility] [address] [id number] [place] [address] Sep, [facility] [address] [id number] [place] [address] Sep, [facility] [address] [id number] [place] [address] Sep, [facility] [address] [id number] [place] [address] Sep, [facility] [address] [id number] [place] [address] Dec, [facility] [address] [id number] [place] [address] Dec, [facility] [address] [id number] [place] [address] Nov, [facility] [address] [id number] [place] [address] Nov, [facility] [address] [id number] [place] [address] Nov, [facility] [id number] [place] [address] Nov, [facility] [address] [id number] [place] [address] Jul, [facility] [address] [id number] [place] [address] Jul, [facility] [address] [id number] [place] [address] Jul, [facility] [id number] [place] [address] Jul, [facility] [id number] [place] [address] 17 Mar, 2011 [facility] [id number] [place] [address] 14 Mar, 2011 [facility] [id number] [place] [address] 14 Mar, 2011 [facility] [id number] [place] [address] Mar, [facility] [id number] [place] [address] Mar, [facility] [id number] [place] [address] 14 May, 2010 [facility] [id number] [place] [address] 14 May, 2010 [facility] [id number] [place] [address] May, [facility] [id number] [place] [address] Mar, [facility] [id number] [place] [address] Mar, [facility] [id number] [place] [address] May, IMMUNIZATIONS No Known Immunizations SOCIAL HISTORY Never Assessed REASON FOR VISIT PLAN OF CARE VITAL SIGNS Height 62 in 2013-10-30 Weight 229 lbs 2013-10-30 Temperature 96.8 degrees Fahrenheit 2013-10-30 Heart Rate 68 bpm 2013-10-30 Respiratory Rate 16 2013-10-30 Blood pressure systolic 118 mmHg 2013-10-30 Blood pressure diastolic 68 mmHg 2013-10-30 MEDICATIONS Unknown Medications RESULTS No Results PROCEDURES [...]
--- OUTSIDE RECORDS SUMMARY | 2019-12-03 14:08 | XMS REPORT ---
Author Author Sirisha White Organization [facility] Address [address] [place] [address] Care Team Providers Care Computer Art Instructor Name Role Phone АНДРЕЙ White Unavailable PROBLEMS Type Condition ICD9-CM Code XTG68-LE Code Onset Dates Condition S tatus SNOMED Code Problem Hypertriglyceridemia E78.1 Active 902847885 Problem Weakness R53.1 Active 00252619 Problem Family history of diabetes mellitus Z83.3 Active 315317768 Problem Fatigue R53.83 Active 06351035 Problem Obesity E66.9 Active 313840466 Problem Establishing care with new doctor, encounter for Z 71.89 Active 410632591 Problem Family history of early CAD Z82.49 Ac tive 232179642 Problem Anxiety disorder, unspecified F41.9 Active 218890310 Problem Attention deficit hyperactivity disorder F90.9 Active 707139476 Problem Major depressive disorder, recurrent episode wit h anxious distress F33.9 Active 77947453 Problem Dysphagia, unspecified type R13.10 Ac tive 10946348 Problem Finger fracture S62.609A Active 1817 1007 Problem ADHD (attention deficit hyperactivity disorder), inattentive type F90.0 Active 32196221 Problem Ganglion cyst of left foot M67.472 Act olivia 573814595 Problem Menstrual migraine without status migrainosus, n ot intractable G43.829 Active 27477591 Problem Mixed hyperlipidemia E78.2 Active 790367560 Problem Lumbago with sciatica, left side M54.42 Active 717751187 Problem Other chronic pain G89.29 Active 8 [id number] ALLERGIES No Information ENCOUNTERS Encounter Location Date Diagnosis [facility] [address] [facility] [place] [id number] [address] [place] [phone] Nov, [facility] [address] [facility] [place] [id number] [address] [place] [phone] October, ADHD (attention deficit hype ractivity disorder), inattentive type F90.0 [place] [address] [facility] [place] [id number] [address] [place] [phone] October, Low back pain M54.5 ; Arthra lgia, unspecified joint M25.50 and Dysphagia, unspecified type R13.10 [place] [address] [place] [id number] [address] [place] [phone] Sep, ADHD (attention deficit hype ractivity disorder), inattentive type F90.0 [place] [address] [facility] [place] [id number] [address] [place] [phone] Sep, [place] [address] [place] [id number] [place] [phone] Aug, Arthralgia, unspecified join t M25.50 [place] [address] [place] [id number] [place] [phone] Aug, [place] [address] [place] [id number] [place] [phone] Aug, Dysphagia, unspecified type R13.10 [place] [address] [place] [id number] [address] [place] [phone] Aug, Other dysphagia R13.19 ; Hyp ertriglyceridemia E78.1 ; Arthralgia, unspecified joint M25.50 ; Low back pain M54.5 and Other chronic pain G89.29 [place] [address] [place] [id number] [address] [place] [phone] Aug, [place] [address] [facility] [place] [id number] [address] [place] [address] Jul, Hypertriglyceridemia E78.1 ; Arthralgia, unspecified joint M25.50 ; Other dysphagia R13.19 ; Low back pain M54.5 and Other chronic pain G89.29 [place] [address] [place] [id number] [address] [place] [phone] 12 Jul, 2019 Hyperglycemia R73.9 and Hype rtriglyceridemia E78.1 [place] [id number] [place] [phone] Jun, [place] [address] [address] Apr, Hypertriglyceridemia E78.1 a nd Hyperglycemia R73.9 [place] [address] [address] Apr, Lumbago with sciatica, left side M54.42 ; Other chronic pain G89.29 ; Family history of diabetes mellitus Z83.3 ; Mixed hyperlipidemia E78.2 ; Joint stiffness M25.60 ; Encounter for immunization Z23 and Breast cancer screening by mammogram Z12.31 [place] [address] [id number] 20 Nov, 2017 Family history of early CAD Z82.49 ; Family history of diabetes mellitus Z83.3 and Fatigue R53.83 [place] [address] [id number] 18 Nov, 2017 Encounter for screening mamm ogram for breast cancer Z12.31 ; Menstrual migraine without status migrainosus, not intractable G43.829 ; BMI 50.0-59.9, adult Z68.43 ; Family history of diabetes mellitus Z83.3 ; Family history of early CAD Z82.49 and Fatigue R53.83 [place] [address] [place] [id number] [address] [place] [phone] Jun, Attention deficit hyperactiv ity disorder F90.9 [place] [address] [place] [id number] [address] [place] [phone] 02 Jun, 2017 Attention deficit hyperactiv ity disorder F90.9 ; Major depressive disorder, recurrent episode with anxious distress F33.9 and BMI 45.0-49.9, adult Z68.42 [place] [address] [place] [id number] [address] [place] [phone] May, Major depressive disorder, r ecurrent episode with anxious distress F33.9 [place] [address] [place] [id number] [address] [place] [phone] Apr, Major depressive disorder, r ecurrent episode with anxious distress F33.9 and Attention deficit hyperactivity disorder F90.9 [facility] [address] [id number] [address] [place] [phone] Apr, [facility] [address] [id number] [address] [place] [phone] Mar, Attention deficit hyperactiv ity disorder F90.9 and Major depressive disorder, recurrent episode with anxious distress F33.9 [facility] [address] [id number] [address] [place] [phone] Jan, [place] [address] [id number] [address] [place] [phone] Dec, Anxiety disorder, unspecifie d F41.9 ; Attention deficit hyperactivity disorder F90.9 and Major depressive disorder, recurrent episode with anxious distress F33.9 [place] [address] [id number] [address] [place] [phone] Dec, Acute midline low back pain without sciatica M54.5 [place] [address] [id number] [address] [place] [phone] Dec, [place] [address] [id number] [address] [place] [phone] Dec, Pelvic pain R10.2 and Acute midline low back pain without sciatica M54.5 [place] [address] [id number] [address] [place] [phone] Nov, [facility] [address] [id number] [address] [place] [phone] October, [place] [address] [facility] [place] [id number] [address] [place] [phone] October, [facility] [address] [facility] [place] [id number] [address] [place] [phone] Sep, Well woman exam Z01.419 and Cervical cancer screening Z12.4 [facility] [address] [facility] [place] [id number] [address] [place] [phone] Sep, [facility] [address] [facility] [place] [id number] [address] [place] [phone] Sep, Plantar fasciitis, right M72 .2 ; Left foot pain M79.672 and Trigger point of left side of body M79.1 [facility] [address] [facility] [place] [id number] [address] [place] [phone] Aug, [place] [address] [place] [id number] [address] [place] [phone] Aug, Anxiety disorder, unspecifie d F41.9 ; Attention deficit hyperactivity disorder F90.9 and Major depressive disorder, recurrent episode with anxious distress F33.9 [place] [address] [place] [id number] [address] [place] [phone] Jul, [place] [address] [place] [id number] [address] [place] [phone] Jun, Attention deficit disorder o f adult with hyperactivity F90.9 and Major depressive disorder, recurrent episode with anxious distress F33.9 [place] [address] [place] [id number] [address] [place] [phone] Feb, Anxiety disorder, unspecifie d F41.9 ; Major depression F32.9 and Attention deficit hyperactivity disorder F90.9 [place] [address] [facility] [place] [id number] [address] [place] [phone] Jan, [place] [address] [facility] [place] [id number] [address] [place] [phone] Dec, [place] [address] [place] [id number] [address] [place] [phone] Nov, [place] [address] [facility] [place] [id number] [address] [place] [phone] October, Fatigue, unspecified type R5 3.83 [place] [address] [place] [id number] [address] [place] [phone] October, [facility] [address] [address] October, Finger fracture S62.609A [facility] [address] [place] [id number] [place] [address] Sep, [facility] [address] [address] Sep, Finger fracture S62.609A [facility] [address] [address] Sep, [facility] [address] [address] Sep, [facility] [address] [address] Aug, Establishing care with chi khan, encounter for Z71.89 ; Fatigue R53.83 ; Weakness R53.1 ; Ganglion cyst of left foot M67.472 ; Obesity E66.9 ; Family history of diabetes mellitus Z83.3 and Family history of early CAD Z82.49 [facility] [address] [address] Aug, [facility] [address] [address] Aug, Fatigue R53.83 [facility] [address] [address] Aug, Anxiety disorder, unspecifie d F41.9 ; Major depression F32.9 and Attention deficit hyperactivity disorder F90.9 [facility] [address] [id number] Jul, [facility] [address] [id number] Jun, [facility] [address] [address] May, [facility] [address] [id number] [address] [place] [phone] Apr, [facility] [address] [facility] [place] [id number] [address] [place] [phone] Apr, Attention deficit hyperactiv ity disorder F90.9 ; Major depression F32.9 and Anxiety disorder, unspecified F41.9 [facility] [address] [id number] [address] [place] [phone] Mar, [facility] [address] [id number] [address] [place] [phone] Mar, [facility] [address] [facility] [place] [id number] [address] [place] [phone] Feb, [facility] [address] [facility] [place] [id number] [address] [place] [phone] Feb, ADHD (attention deficit hype ractivity disorder) 314.01 ; Major depressive disorder, recurrent episode, moderate 296.32 and Anxiety state, unspecified 300.00 [facility] [address] [id number] [address] [place] [phone] Jan, [facility] [address] [facility] [place] [id number] [address] [place] [phone] Dec, [facility] [address] [facility] [place] [id number] [address] [place] [phone] Nov, [facility] [address] [facility] [place] [id number] [address] [place] [phone] October, [facility] [address] [facility] [place] [id number] [address] [place] [phone] October, Anxiety state, unspecified 3 00.00 ; Attention deficit disorder of childhood with hyperactivity 314.01 and Major depressive disorder, recurrent episode, moderate 296.32 [facility] [address] [facility] [place] [id number] [address] [place] [phone] Sep, [facility] [address] [id number] [address] [place] [address], [place] [address] Sep, [facility] [address] [id number] [address] [place] [address], [place] [address] Aug, [facility] [address] [id number] [address] [place] [address], [place] [address] Aug, [facility] [address] [id number] [address] [place] [address], [place] [address] Jul, [facility] [address] [id number] [address] [place] [address], [place] [address] Jul, [facility] [address] [id number] [address] [place] [address], [place] [address] October, [facility] [address] [id number] [address] [place] [address], [place] [address] October, [facility] [address] [id number] [address] [place] [address], [place] [address] October, [facility] [address] [id number] [address] [place] [address], [place] [address] October, [facility] [address] [id number] [address] [place] [address], [place] [address] October, [facility] [address] [id number] [address] [place] [address], [place] [address] Sep, [facility] [address] [id number] [address] [place] [address], [place] [address] Sep, [facility] [address] [id number] [address] [place] [address], [place] [address] Sep, [facility] [address] [id number] [address] [place] [address], [place] [address] Sep, [facility] [address] [id number] [address] [place] [address], [place] [address] Dec, [facility] [address] [id number] [address] [place] [address], [place] [address] Dec, [facility] [address] [id number] [address] [place] [address], [place] [address] Nov, [facility] [address] [id number] [address] [place] [address], [place] [address] Nov, [facility] [address] [id number] [address] [place] [address], [place] [address] Nov, [facility] [address] [id number] [address] [place] [address], [place] [address] Nov, [facility] [address] [id number] [address] [place] [address], [place] [address] Jul, [facility] [address] [id number] [address] [place] [address], [place] [address] Jul, [facility] [address] [id number] [address] [place] [address], [place] [address] Jul, [facility] [address] [id number] [address] [place] [address], [place] [address] Jul, [facility] [address] [id number] [address] [place] [address], [place] [address] 17 Mar, 2011 [facility] [address] [id number] [address] [place] [address], [place] [address] 14 Mar, 2011 [facility] [address] [id number] [address] [place] [address], [place] [address] 14 Mar, 2011 [facility] [address] [id number] [address] [place] [phone] 11 Mar, 2011 [facility] [address] [id number] [address] [place] [address], [place] [address] 11 Mar, 2011 [facility] [address] [id number] [address] [place] [address], [place] [address] 14 May, 2010 [facility] [address] [id number] [address] [place] [address], [place] [address] 14 May, 2010 [facility] [address] [id number] [address] [place] [phone] May, [facility] [address] [facility] [place] [id number] [address] [place] [phone] Mar, [facility] [address] [facility] [place] [id number] [address] [place] [phone] Mar, [facility] [address] [facility] [place] [id number] [address] [place] [phone] May, IMMUNIZATIONS No Known Immunizations SOCIAL HISTORY Never Assessed REASON FOR VISIT PLAN OF CARE VITAL SIGNS Height 62 in 2012-12-03 Weight 216 lbs 2012-12-03 Temperature 97.2 degrees Fahrenheit 2012-12-03 Heart Rate 82 bpm 2012-12-03 Respiratory Rate 16 2012-12-03 Blood pressure systolic 110 mmHg 2012-12-03 Blood pressure diastolic 70 mmHg 2012-12-03 MEDICATIONS Unknown Medications RESULTS No Results PROCEDURES Procedure Date Ordered Result Body Site TRICHOMONAS VAGIN, DIR PROBE December 03, 2012 COMPLETE CBC W/AUTO DIFF WBC December 03, 2012 CHYLMD TRACH, DNA, AMP PROBE December 03, 2012 ASSAY THYROID STIM HORMONE December 03, 2012 LIPID PANEL December 03, 2012 COMPREHEN METABOLIC PANEL December 03, 2012 CULTURE, BACTERIA, OTHER December 03, 2012 ASSAY OF VITAMIN D December 03, 2012 VENIPUNCT, ROUTINE* December 03, 2012 INSTRUCTIONS MEDICATIONS ADMINISTERED No Known Medications MEDICAL (GENERAL) HISTORY Type Description Date Medical History ADD Medical History Depression Medical History High cholesterol Medical History Vitamin D deficiency Medical History no hx of seizures Surgical History Baby #1 , or section 0 08/21/1997 Surgical History 1997 Surgical History Left ankle surgery Surgical History Tubal ligation 03/12/2002 Surgical History Left Ankle 01/10/1984 Hospitalization History Stitches in right hand finger next t o pinky Hospitalization History Surgery
--- OUTSIDE RECORDS SUMMARY | 2019-12-03 14:09 | XMS REPORT ---
Author Author Sirisha Meier Doctor Organization [facility] Address Unknown Phone Unavailable Care Team Providers Care Assistant Program Manager Name Role Phone Migration, Doctor Unavailable Unavailable PROBLEMS Type Condition ICD9-CM Code [id number] Code Onset Dates Condition S tatus SNOMED Code Problem Family history of early CAD Z82.49 Ac tive 899023636 Problem Family history of diabetes mellitus Z83.3 Active 761327133 Problem Weakness R53.1 Active 34743774 Problem Establishing care with new doctor, encounter for Z 71.89 Active 409906008 Problem Major depressive disorder, recurrent episode wit h anxious distress F33.9 Active 43124548 Problem Fatigue R53.83 Active 88514660 Problem Menstrual migraine without status migrainosus, n ot intractable G43.829 Active 43056077 Problem Obesity E66.9 Active 295247293 Problem Ganglion cyst of left foot M67.472 Act olivia 662860691 Problem Finger fracture S62.609A Active 1817 1007 Problem Anxiety disorder, unspecified F41.9 Active 644266840 Problem Attention deficit hyperactivity disorder F90.9 Active [id number] ALLERGIES No Information ENCOUNTERS Encounter Location Date Diagnosis [facility] [id number] [address] [place] [id number] Nov, Family history of early CAD Z82.49 ; Family history of diabetes mellitus Z83.3 and Fatigue R53.83 [facility] [id number] [address] [place] [id number] 18 Nov, 2018 Encounter for screening mamm ogram for breast cancer Z12.31 ; Menstrual migraine without status migrainosus, not intractable G43.829 ; BMI 50.0-59.9, adult Z68.43 ; Family history of diabetes mellitus Z83.3 ; Family history of early CAD Z82.49 and Fatigue R53.83 [facility] [address] [facility] [id number] [address] [place] [phone] Jun, Attention deficit hyperactiv ity disorder F90.9 [facility] [address] [id number] [address] [place] [phone] Jun, Attention deficit hyperactiv ity disorder F90.9 ; Major depressive disorder, recurrent episode with anxious distress F33.9 and BMI 45.0-49.9, adult Z68.42 [facility] [address] [id number] [address] [place] [phone] May, Major depressive disorder, r ecurrent episode with anxious distress F33.9 [facility] [address] [id number] [address] [place] [phone] Apr, Major depressive disorder, r ecurrent episode with anxious distress F33.9 and Attention deficit hyperactivity disorder F90.9 [place] [address] [id number] [address] [place] [phone] Apr, [place] [address] [id number] [address] [place] [phone] Mar, Attention deficit hyperactiv ity disorder F90.9 and Major depressive disorder, recurrent episode with anxious distress F33.9 [place] [address] [id number] [address] [place] [id number] Jan, [place] [address] [id number] [address] [place] [phone] Dec, Anxiety disorder, unspecifie d F41.9 ; Attention deficit hyperactivity disorder F90.9 and Major depressive disorder, recurrent episode with anxious distress F33.9 [facility] [address] [id number] [address] [place] [phone] Dec, Acute midline low back pain without sciatica M54.5 [place] [address] [id number] [address] [place] [phone] Dec, [facility] [address] [id number] [address] [place] [phone] Dec, Pelvic pain R10.2 and Acute midline low back pain without sciatica M54.5 [place] [address] [id number] [address] [place] [phone] Nov, [facility] [address] [id number] [address] [place] [phone] October, [facility] [address] [facility] [id number] [address] [place] [phone] October, [facility] [address] [facility] [id number] [address] [place] [phone] Sep, Well woman exam Z01.419 and Cervical cancer screening Z12.4 [place] [address] [facility] [id number] [address] [place] [phone] Sep, [place] [id number] [place] [id number] Sep, Plantar fasciitis, right M72 .2 ; Left foot pain M79.672 and Trigger point of left side of body M79.1 [place] [address] [facility] [id number] [address] [place] [phone] Aug, [place] [address] [facility] [id number] [address] [place] [phone] Aug, Anxiety disorder, unspecifie d F41.9 ; Attention deficit hyperactivity disorder F90.9 and Major depressive disorder, recurrent episode with anxious distress F33.9 [place] [address] [facility] [id number] [address] [place] [phone] Jul, [place] [address] [facility] [id number] [address] [place] [id number] Jun, Attention deficit disorder o f adult with hyperactivity F90.9 and Major depressive disorder, recurrent episode with anxious distress F33.9 [place] [address] [facility] [id number] [address] [place] [phone] Feb, Anxiety disorder, unspecifie d F41.9 ; Major depression F32.9 and Attention deficit hyperactivity disorder F90.9 [place] [address] [facility] [id number] [address] [place] [phone] Jan, [facility] [address] [id number] [address] [place] [phone] Dec, [facility] [address] [facility] [id number] [address] [place] [phone] Nov, [facility] [address] [facility] [id number] [address] [place] [phone] October, Fatigue, unspecified type R5 3.83 [facility] [address] [facility] [id number] [address] [place] [phone] October, [facility] [address] [facility] [id number] [address] [place] [phone] October, Finger fracture S62.609A [facility] [address] [facility] [id number] [address] [place] [phone] Sep, [facility] [address] [facility] [id number] [address] [place] [phone] Sep, Finger fracture S62.609A [facility] [address] [facility] [id number] [address] [place] [phone] Sep, [facility] [address] [facility] [id number] [address] [place] [phone] Sep, [facility] [address] [facility] [id number] [address] [place] [phone] Aug, Establishing care with chi khan, encounter for Z71.89 ; Fatigue R53.83 ; Weakness R53.1 ; Ganglion cyst of left foot M67.472 ; Obesity E66.9 ; Family history of diabetes mellitus Z83.3 and Family history of early CAD Z82.49 [facility] [address] [facility] [id number] [address] [place] [id number] 16 Aug, 2015 [facility] [address] [facility] [id number] [address] [place] [phone] Aug, Fatigue R53.83 [facility] [id number] [place] [phone] Aug, Anxiety disorder, unspecifie d F41.9 ; Major depression F32.9 and Attention deficit hyperactivity disorder F90.9 [facility] [address] [facility] [id number] [address] [place] [id number] Jul, [facility] [address] [facility] [id number] [address] [place] [phone] Jun, [facility] [id number] [place] [phone] May, [facility] [address] [facility] [id number] [address] [place] [phone] Apr, [facility] [id number] [place] [id number] Apr, Attention deficit hyperactiv ity disorder F90.9 ; Major depression F32.9 and Anxiety disorder, unspecified F41.9 [facility] [id number] [place] [phone] Mar, [facility] [address] [facility] [id number] [address] [place] [phone] Mar, [facility] [id number] [place] [phone] Feb, [facility] [id number] [place] [id number] Feb, ADHD (attention deficit hype ractivity disorder) 314.01 ; Major depressive disorder, recurrent episode, moderate 296.32 and Anxiety state, unspecified 300.00 [facility] [address] [facility] [id number] [address] [place] [phone] Jan, [facility] [id number] [address] [place] [phone] Dec, [facility] [id number] [place] [phone] Nov, [facility] [address] [id number] [address] [place] [phone] October, [facility] [address] [id number] [address] [place] [phone] October, Anxiety state, unspecified 3 00.00 ; Attention deficit disorder of childhood with hyperactivity 314.01 and Major depressive disorder, recurrent episode, moderate 296.32 [facility] [address] [id number] [address] [place] [id number] 14 Sep, 2014 [facility] [address] [id number] [address] [place] [phone] Sep, [facility] [address] [id number] [address] [place] [phone] Aug, [facility] [address] [id number] [address] [place] [phone] Aug, [facility] [address] [id number] [address] [place] [phone] Jul, [facility] [address] [id number] [address] [place] [phone] Jul, [facility] [address] [id number] [address] [place] [phone] October, [facility] [address] [id number] [address] [place] [phone] October, [facility] [address] [id number] [address] [place] [phone] October, [facility] [address] [id number] [address] [place] [phone] October, [facility] [address] [id number] [address] [place] [phone] October, [facility] [address] [id number] [address] [place] [phone] Sep, [facility] [address] [id number] [address] [place] [phone] Sep, [facility] [address] [id number] [address] [place] [address], [place] [address] Sep, [facility] [address] [id number] [address] [place] [address], [place] [address] Sep, [facility] [address] [id number] [address] [place] [address], [place] [address] Dec, [facility] [address] [id number] [address] [place] [address], [place] [address] Dec, [facility] [address] [id number] [address] [place] [address], [place] [address] Nov, [facility] [address] [id number] [address] [place] [address], [place] [address] Nov, [facility] [address] [id number] [address] [place] [address], [place] [phone] Nov, [facility] [address] [id number] [address] [place] [address], [place] [address] Nov, [facility] [address] [id number] [address] [place] [address], [place] [address] Jul, [facility] [address] [id number] [address] [place] [address], [place] [address] Jul, [facility] [address] [id number] [address] [place] [address], [place] [address] Jul, [facility] [address] [id number] [address] [place] [address], [place] [address] Jul, [facility] [address] [id number] [address] [place] [address], [place] [address] Mar, [facility] [address] [id number] [address] [place] [address], [place] [address] Mar, [facility] [address] [id number] [address] [place] [address], [place] [address] Mar, [facility] [address] [id number] [address] [place] [id number] 11 Mar, 2011 [facility] [address] [id number] [address] [place] [phone] Mar, [facility] [address] [id number] [address] [place] [phone] May, [facility] [address] [id number] [address] [place] [phone] May, [facility] [address] [id number] [address] [place] [phone] May, [facility] [address] [id number] [address] [place] [phone] Mar, [facility] [address] [id number] [address] [place] [phone] Mar, [facility] [address] [id number] [address] [place] [phone] May, IMMUNIZATIONS No Known Immunizations SOCIAL HISTORY Never Assessed REASON FOR VISIT EMR-[facility] PLAN OF CARE VITAL SIGNS MEDICATIONS Unknown [...] finger next t o pinky Hospitalization History Baby #3 02/11/2002 Hospitalization History Surgery
--- OUTSIDE RECORDS SUMMARY | 2019-12-03 14:09 | XMS REPORT ---
Author Author Sirisha SHABAZZ Organization [facility] Address [address] [place] [address] Care Team Providers Care Bolt Labeler Name Role Phone HARIKA MARIANELA Unavailable PROBLEMS Type Condition ICD9-CM Code AMM05-PQ Code Onset Dates Condition S tatus SNOMED Code Problem Family history of early CAD Z82.49 Ac tive 648221201 Problem Weakness R53.1 Active 90243168 Problem Family history of diabetes mellitus Z83.3 Active 886748136 Problem Establishing care with new doctor, encounter for Z 71.89 Active 065480526 Problem Obesity E66.9 Active 955078824 Problem Fatigue R53.83 Active 12947473 Problem Menstrual migraine without status migrainosus, n ot intractable G43.829 Active 71465235 Problem Major depressive disorder, recurrent episode wit h anxious distress F33.9 Active 53241816 Problem Finger fracture S62.609A Active 1817 1007 Problem Ganglion cyst of left foot M67.472 Act olivia 638567935 Problem Attention deficit hyperactivity disorder F90.9 Active 532508893 Problem Anxiety disorder, unspecified F41.9 Active 622757828 ALLERGIES No Information ENCOUNTERS Encounter Location Date Diagnosis [facility] [id number] [place] [phone] Nov, Family history of early CAD Z82.49 ; Family history of diabetes mellitus Z83.3 and Fatigue R53.83 [facility] [address] [place] [id number] [address] [place] [phone] 18 Nov, 2017 Encounter for screening mamm ogram for breast cancer Z12.31 ; Menstrual migraine without status migrainosus, not intractable G43.829 ; BMI 50.0-59.9, adult Z68.43 ; Family history of diabetes mellitus Z83.3 ; Family history of early CAD Z82.49 and Fatigue R53.83 [facility] [address] [place] [id number] [address] [place] [phone] Jun, Attention deficit hyperactiv ity disorder F90.9 [facility] [address] [id number] [address] [place] [id number] Jun, Attention deficit hyperactiv ity disorder F90.9 ; Major depressive disorder, recurrent episode with anxious distress F33.9 and BMI 45.0-49.9, adult Z68.42 [place] [address] [id number] [address] [place] [phone] May, Major depressive disorder, r ecurrent episode with anxious distress F33.9 [place] [address] [id number] [address] [place] [phone] Apr, Major depressive disorder, r ecurrent episode with anxious distress F33.9 and Attention deficit hyperactivity disorder F90.9 [place] [address] [id number] [address] [place] [phone] Apr, [place] [address] [id number] [address] [place] [phone] Mar, Attention deficit hyperactiv ity disorder F90.9 and Major depressive disorder, recurrent episode with anxious distress F33.9 [place] [address] [id number] [address] [place] [phone] Jan, [place] [address] [id number] [address] [place] [phone] Dec, Anxiety disorder, unspecifie d F41.9 ; Attention deficit hyperactivity disorder F90.9 and Major depressive disorder, recurrent episode with anxious distress F33.9 [facility] [address] [id number] [address] [place] [phone] Dec, Acute midline low back pain without sciatica M54.5 [facility] [address] [id number] [address] [place] [phone] Dec, [facility] [address] [facility] [id number] [address] [place] [phone] Dec, Pelvic pain R10.2 and Acute midline low back pain without sciatica M54.5 [facility] [address] [id number] [address] [place] [phone] Nov, [facility] [address] [id number] [address] [place] [phone] October, [place] [address] [id number] [address] [place] [phone] October, [facility] [address] [id number] [address] [place] [address] Sep, Well woman exam Z01.419 and Cervical cancer screening Z12.4 [place] [address] [facility] [id number] [address] [place] [id number] Sep, [place] [address] [facility] [id number] [address] [place] [phone] Sep, Plantar fasciitis, right M72 .2 ; Left foot pain M79.672 and Trigger point of left side of body M79.1 [facility] [address] [facility] [id number] [address] [place] [phone] Aug, [place] [address] [facility] [id number] [address] [place] [phone] Aug, Anxiety disorder, unspecifie d F41.9 ; Attention deficit hyperactivity disorder F90.9 and Major depressive disorder, recurrent episode with anxious distress F33.9 [facility] [address] [facility] [id number] [address] [place] [phone] Jul, [facility] [address] [id number] [address] [place] [phone] Jun, Attention deficit disorder o f adult with hyperactivity F90.9 and Major depressive disorder, recurrent episode with anxious distress F33.9 [facility] [address] [id number] [address] [place] [phone] Feb, Anxiety disorder, unspecifie d F41.9 ; Major depression F32.9 and Attention deficit hyperactivity disorder F90.9 [facility] [address] [facility] [id number] [address] [place] [phone] Jan, [facility] [address] [facility] [id number] [address] [place] [phone] Dec, [facility] [address] [place] [id number] [address] [place] [phone] Nov, [facility] [address] [place] [id number] [address] [place] [phone] October, Fatigue, unspecified type R5 3.83 [facility] [address] [facility] [id number] [address] [place] [address] October, [facility] [address] [place] [id number] [address] [place] [address] October, Finger fracture S62.609A [facility] [address] [place] [id number] [address] [place] [phone] Sep, [facility] [address] [place] [id number] [address] [place] [address] Sep, Finger fracture S62.609A [facility] [address] [place] [id number] [address] [place] [phone] Sep, [facility] [address] [place] [id number] [address] [place] [phone] Sep, [facility] [address] [place] [id number] [address] [place] [address] Aug, Establishing care with chi khan, encounter for Z71.89 ; Fatigue R53.83 ; Weakness R53.1 ; Ganglion cyst of left foot M67.472 ; Obesity E66.9 ; Family history of diabetes mellitus Z83.3 and Family history of early CAD Z82.49 [facility] [address] [facility] [id number] [address] [place] [id number] 16 Aug, 2015 [facility] [address] [place] [id number] [address] [place] [phone] Aug, Fatigue R53.83 [facility] [address] [facility] [id number] [address] [place] [phone] Aug, Anxiety disorder, unspecifie d F41.9 ; Major depression F32.9 and Attention deficit hyperactivity disorder F90.9 [facility] [address] [facility] [id number] [address] [place] [phone] Jul, [facility] [address] [facility] [id number] [address] [place] [phone] Jun, [facility] [address] [facility] [id number] [address] [place] [phone] May, [facility] [address] [facility] [id number] [address] [place] [phone] Apr, [facility] [address] [place] [id number] [address] [place] [phone] Apr, Attention deficit hyperactiv ity disorder F90.9 ; Major depression F32.9 and Anxiety disorder, unspecified F41.9 [facility] [address] [facility] [id number] [address] [place] [phone] Mar, [facility] [address] [place] [id number] [address] [place] [phone] Mar, [facility] [address] [facility] [id number] [address] [place] [phone] Feb, [facility] [address] [place] [id number] [address] [place] [id number] 16 Feb, 2015 ADHD (attention deficit hype ractivity disorder) 314.01 ; Major depressive disorder, recurrent episode, moderate 296.32 and Anxiety state, unspecified 300.00 [facility] [address] [facility] [id number] [address] [place] [phone] Jan, [facility] [address] [facility] [id number] [address] [place] [phone] Dec, [facility] [address] [place] [id number] [address] [place] [phone] Nov, [facility] [address] [id number] [address] [place] [phone] October, [facility] [address] [id number] [address] [place] [address] October, Anxiety state, unspecified 3 00.00 ; Attention deficit disorder of childhood with hyperactivity 314.01 and Major depressive disorder, recurrent episode, moderate 296.32 [facility] [address] [id number] [address] [place] [address], [place] [address] 14 Sep, 2014 [facility] [address] [id number] [address] [place] [phone] Sep, [facility] [address] [id number] [address] [place] [phone] Aug, [facility] [address] [id number] [address] [place] [phone] Aug, [facility] [address] [id number] [address] [place] [phone] Jul, [facility] [address] [id number] [address] [place] [phone] Jul, [facility] [address] [id number] [address] [place] [phone] October, [facility] [address] [id number] [address] [place] [phone] October, [facility] [address] [id number] [address] [place] [phone] October, [facility] [address] [id number] [address] [place] [phone] October, [facility] [address] [id number] [address] [place] [phone] October, [facility] [address] [id number] [address] [place] [phone] Sep, [facility] [address] [id number] [address] [place] [address], [place] [address] Sep, [facility] [address] [id number] [address] [place] [address], [place] [address] Sep, [facility] [address] [id number] [address] [place] [address], [place] [address] Sep, [facility] [address] [id number] [address] [place] [address], [place] [address] Dec, [facility] [address] [id number] [address] [place] [address], [place] [address] Dec, [facility] [address] [id number] [address] [place] [address], [place] [address] Nov, [facility] [address] [id number] [address] [place] [address], [place] [address] Nov, [facility] [address] [id number] [address] [place] [address], [place] [address] Nov, [facility] [address] [id number] [address] [place] [address], [place] [address] Nov, [facility] [address] [id number] [address] [place] [address], [place] [address] Jul, [facility] [address] [id number] [address] [place] [address], [place] [address] Jul, [facility] [address] [id number] [address] [place] [address], [place] [address] Jul, [facility] [address] [id number] [address] [place] [address], [place] [id number] Jul, [facility] [address] [id number] [address] [place] [address], [place] [address] Mar, [facility] [address] [id number] [address] [place] [address], [place] [address] Mar, [facility] [address] [id number] [address] [place] [phone] 14 Mar, 2011 [facility] [address] [id number] [address] [place] [id number] 11 Mar, 2011 [facility] [address] [id number] [address] [place] [phone] 11 Mar, 2011 [facility] [address] [id number] [address] [place] [id number] 14 May, 2010 [facility] [address] [id number] [address] [place] [phone] May, [facility] [address] [id number] [address] [place] [id number] May, [facility] [address] [id number] [address] [place] [phone] Mar, [facility] [address] [id number] [address] [place] [phone] Mar, [facility] [address] [id number] [address] [place] [phone] May, IMMUNIZATIONS No Known Immunizations SOCIAL HISTORY Never Assessed REASON FOR VISIT PLAN OF CARE VITAL SIGNS MEDICATIONS Medication Instructions Dosage Frequency Start Date End Date Duration S tatus Adderall 20 mg Orally one tablet in am and one half tablet at noon 1 tablet Jun, 28 days Active Cymbalta 60 MG Orally every morning 1 capsule 30 days Active RESULTS No Results PROCEDURES No Known procedures [...]
--- OUTSIDE RECORDS SUMMARY | 2019-12-03 14:09 | XMS REPORT ---
Author Author Sirisha Weinstein Organization [facility] Address Unknown Care Team Providers Care Child Adolescent Care Name Role Phone DARSHAN Weinstein Unavailable PROBLEMS Type Condition ICD9-CM Code OMP85-OZ Code Onset Dates Condition S tatus SNOMED Code Problem Family history of early CAD Z82.49 Ac tive 216547664 Problem Family history of diabetes mellitus Z83.3 Active 625717401 Problem Weakness R53.1 Active 96301148 Problem Establishing care with new doctor, encounter for Z 71.89 Active 402295187 Problem Major depressive disorder, recurrent episode wit h anxious distress F33.9 Active 38632689 Problem Fatigue R53.83 Active 82590511 Problem Menstrual migraine without status migrainosus, n ot intractable G43.829 Active 01114917 Problem Obesity E66.9 Active 856395905 Problem Ganglion cyst of left foot M67.472 Act olivia 799009258 Problem Finger fracture S62.609A Active 1817 1007 Problem Anxiety disorder, unspecified F41.9 Active 923091533 Problem Attention deficit hyperactivity disorder F90.9 Active 431441574 ALLERGIES No Information ENCOUNTERS Encounter Location Date Diagnosis [facility] [address] [facility] [id number] [address] [place] [id number] 20 Nov, 2017 Family history of early CAD Z82.49 ; Family history of diabetes mellitus Z83.3 and Fatigue R53.83 [facility] [address] [facility] [id number] [address] [place] [address] 18 Nov, 2018 Encounter for screening mamm ogram for breast cancer Z12.31 ; Menstrual migraine without status migrainosus, not intractable G43.829 ; BMI 50.0-59.9, adult Z68.43 ; Family history of diabetes mellitus Z83.3 ; Family history of early CAD Z82.49 and Fatigue R53.83 [facility] [address] [id number] [address] [place] [phone] Jun, Attention deficit hyperactiv ity disorder F90.9 [facility] [address] [id number] [address] [place] [address] Jun, Attention deficit hyperactiv ity disorder F90.9 ; Major depressive disorder, recurrent episode with anxious distress F33.9 and BMI 45.0-49.9, adult Z68.42 [facility] [address] [facility] [id number] [address] [place] [address] May, Major depressive disorder, r ecurrent episode with anxious distress F33.9 [place] [address] [id number] [address] [place] [address] Apr, Major depressive disorder, r ecurrent episode with anxious distress F33.9 and Attention deficit hyperactivity disorder F90.9 [place] [address] [facility] [id number] [address] [place] [address] Apr, [place] [address] [facility] [id number] [address] [place] [address] Mar, Attention deficit hyperactiv ity disorder F90.9 and Major depressive disorder, recurrent episode with anxious distress F33.9 [place] [address] [facility] [id number] [address] [place] [address] Jan, [facility] [address] [id number] [address] [place] [address] Dec, Anxiety disorder, unspecifie d F41.9 ; Attention deficit hyperactivity disorder F90.9 and Major depressive disorder, recurrent episode with anxious distress F33.9 [facility] [address] [id number] [address] [place] [address] Dec, Acute midline low back pain without sciatica M54.5 [facility] [address] [id number] [address] [place] [address] Dec, [facility] [address] [facility] [id number] [address] [place] [address] Dec, Pelvic pain R10.2 and Acute midline low back pain without sciatica M54.5 [facility] [address] [id number] [address] [place] [address] Nov, [facility] [address] [id number] [address] [place] [address] October, [facility] [address] [id number] [address] [place] [address] October, [facility] [address] [id number] [address] [place] [address] Sep, Well woman exam Z01.419 and Cervical cancer screening Z12.4 [facility] [address] [id number] [address] [place] [address] Sep, [facility] [address] [facility] [id number] [address] [place] [address] Sep, Plantar fasciitis, right M72 .2 ; Left foot pain M79.672 and Trigger point of left side of body M79.1 [facility] [address] [id number] [address] [place] [address] Aug, [facility] [address] [id number] [address] [place] [address] Aug, Anxiety disorder, unspecifie d F41.9 ; Attention deficit hyperactivity disorder F90.9 and Major depressive disorder, recurrent episode with anxious distress F33.9 [facility] [address] [id number] [address] [place] [address] Jul, [facility] [address] [id number] [address] [place] [address] Jun, Attention deficit disorder o f adult with hyperactivity F90.9 and Major depressive disorder, recurrent episode with anxious distress F33.9 [facility] [address] [id number] [address] [place] [address] Feb, Anxiety disorder, unspecifie d F41.9 ; Major depression F32.9 and Attention deficit hyperactivity disorder F90.9 [facility] [address] [facility] [id number] [address] [place] [address] Jan, [facility] [address] [facility] [id number] [address] [place] [address] Dec, [facility] [address] [facility] [id number] [address] [place] [address] Nov, [facility] [address] [facility] [id number] [place] [phone] October, Fatigue, unspecified type R5 3.83 [facility] [address] [facility] [id number] [address] [place] [address] October, [facility] [address] [place] [id number] [address] [place] [address] October, Finger fracture S62.609A [facility] [address] [place] [id number] [address] [place] [address] Sep, [facility] [address] [place] [id number] [address] [place] [address] Sep, Finger fracture S62.609A [facility] [address] [place] [id number] [address] [place] [address] Sep, [facility] [address] [place] [id number] [address] [place] [address] Sep, [facility] [address] [place] [id number] [address] [place] [address] 30 Aug, 2015 Establishing care with [facility]han, encounter for Z71.89 ; Fatigue R53.83 ; Weakness R53.1 ; Ganglion cyst of left foot M67.472 ; Obesity E66.9 ; Family history of diabetes mellitus Z83.3 and Family history of early CAD Z82.49 [facility] [address] [facility] [id number] [address] [place] [id number] 16 Aug, [address] [facility] [address] [place] [id number] [address] [place] [address] Aug, Fatigue R53.83 [facility] [address] [facility] [id number] [address] [place] [address] Aug, Anxiety disorder, unspecifie d F41.9 ; Major depression F32.9 and Attention deficit hyperactivity disorder F90.9 [facility] [address] [facility] [id number] [address] [place] [phone] Jul, [facility] [address] [facility] [id number] [address] [place] [phone] Jun, [facility] [address] [facility] [id number] [address] [place] [address] May, [facility] [address] [facility] [id number] [address] [place] [address] Apr, [facility] [address] [facility] [id number] [address] [place] [address] Apr, Attention deficit hyperactiv ity disorder F90.9 ; Major depression F32.9 and Anxiety disorder, unspecified F41.9 [facility] [address] [facility] [id number] [address] [place] [id number] Mar, [facility] [address] [facility] [id number] [address] [place] [address] Mar, [facility] [address] [facility] [id number] [address] [place] [address] Feb, [facility] [address] [facility] [id number] [address] [place] [address] 16 Feb, 2015 ADHD (attention deficit hype ractivity disorder) 314.01 ; Major depressive disorder, recurrent episode, moderate 296.32 and Anxiety state, unspecified 300.00 [facility] [address] [facility] [id number] [address] [place] [id number] Jan, [facility] [address] [facility] [id number] [address] [place] [address] Dec, [facility] [address] [facility] [id number] [address] [place] [address] Nov, [facility] [address] [id number] [address] [place] [address] October, [facility] [address] [id number] [address] [place] [address] October, Anxiety state, unspecified 3 00.00 ; Attention deficit disorder of childhood with hyperactivity 314.01 and Major depressive disorder, recurrent episode, moderate 296.32 [facility] [address] [id number] [address] [place] [address] 14 Sep, 2014 [facility] [address] [id number] [address] [place] [address] Sep, [facility] [address] [id number] [address] [place] [address] Aug, [facility] [address] [id number] [address] [place] [phone] Aug, [facility] [address] [id number] [address] [place] [address] Jul, [facility] [address] [id number] [address] [place] [address] Jul, [facility] [address] [id number] [address] [place] [address] October, [facility] [address] [id number] [address] [place] [address] October, [facility] [address] [id number] [address] [place] [address] October, [facility] [address] [id number] [address] [place] [phone] October, [facility] [address] [id number] [address] [place] [address] October, [facility] [address] [id number] [address] [place] [phone] Sep, [facility] [place] [facility] [address] [id number] [address] [place] [address], [place] [address] Sep, [facility] [address] [id number] [address] [place] [address], [place] [address] Sep, [facility] [address] [id number] [address] [place] [address], [place] [address] Sep, [facility] [address] [id number] [address] [place] [address], [place] [address] Dec, [facility] [address] [id number] [address] [place] [address], [place] [address] Dec, [facility] [address] [id number] [address] [place] [address], [place] [address] Nov, [facility] [address] [id number] [address] [place] [address], [place] [address] Nov, [facility] [address] [id number] [address] [place] [address], [place] [address] Nov, [facility] [address] [id number] [address] [place] [address], [place] [address] Nov, [facility] [address] [id number] [address] [place] [address], [place] [address] Jul, [facility] [address] [id number] [address] [place] [address], [place] [address] Jul, [facility] [address] [id number] [address] [place] [address], [place] [address] Jul, [facility] [address] [id number] [address] [place] [address], [place] [address] Jul, [facility] [address] [id number] [address] [place] [address], [place] [address] Mar, [facility] [address] [id number] [address] [place] [address], [place] [address] 14 Mar, 2011 [facility] [address] [id number] [address] [place] [phone] 14 Mar, 2011 [facility] [address] [id number] [address] [place] [id number] 11 Mar, 2011 [facility] [address] [id number] [address] [place] [id number] 11 Mar, 2011 [facility] [address] [id number] [address] [place] [phone] 14 May, 2010 [facility] [address] [id number] [address] [place] [id number] 14 May, 2010 [facility] [address] [id number] [address] [place] [phone] May, [facility] [address] [id number] [address] [place] [id number] 13 Mar, 2010 [facility] [address] [id number] [address] [place] [phone] Mar, [facility] [address] [id number] [address] [place] [phone] 30 May, 2009 IMMUNIZATIONS No Known Immunizations SOCIAL HISTORY Never [...]
--- OUTSIDE RECORDS SUMMARY | 2019-12-03 14:09 | XMS REPORT ---
Author Author Sirisha SHABAZZ Organization [facility] Address [address] [place] [address] Care Team Providers Care Baseboard Heating Installer Name Role Phone HARIKA MARIANELA Unavailable PROBLEMS Type Condition ICD9-CM Code [id number] Code Onset Dates Condition S tatus SNOMED Code Problem Fatigue R53.83 Active 17499820 Problem Family history of diabetes mellitus Z83.3 Active 822921756 Problem Family history of early CAD Z82.49 Ac tive 328110408 Problem Establishing care with new doctor, encounter for Z 71.89 Active 767778159 Problem Obesity E66.9 Active 741059931 Problem Major depressive disorder, recurrent episode wit h anxious distress F33.9 Active 97098658 Problem Attention deficit hyperactivity disorder F90.9 Active 355908023 Problem Ganglion cyst of left foot M67.472 Act olivia 045169953 Problem Weakness R53.1 Active 93316127 Problem Anxiety disorder, unspecified F41.9 Active 434300070 Problem Finger fracture S62.609A Active 1817 1007 ALLERGIES No Known Allergies ENCOUNTERS Encounter Location Date Diagnosis [place] [id number] [facility] [id number] [address] [place] [address] Nov, [facility] [address] [facility] [id number] [address] [place] [address] Jun, Attention deficit hyperactiv ity disorder F90.9 [facility] [address] [facility] [id number] [address] [place] [address] Jun, Attention deficit hyperactiv ity disorder F90.9 ; Major depressive disorder, recurrent episode with anxious distress F33.9 and BMI 45.0-49.9, adult Z68.42 [facility] [address] [facility] [id number] [address] [place] [address] May, Major depressive disorder, r ecurrent episode with anxious distress F33.9 [facility] [address] [id number] [address] [place] [address] Apr, Major depressive disorder, r ecurrent episode with anxious distress F33.9 and Attention deficit hyperactivity disorder F90.9 [facility] [address] [id number] [address] [place] [address] Apr, [facility] [address] [id number] [address] [place] [address] Mar, Attention deficit hyperactiv ity disorder F90.9 and Major depressive disorder, recurrent episode with anxious distress F33.9 [facility] [address] [id number] [address] [place] [address] Jan, [facility] [address] [id number] [address] [place] [address] Dec, Anxiety disorder, unspecifie d F41.9 ; Attention deficit hyperactivity disorder F90.9 and Major depressive disorder, recurrent episode with anxious distress F33.9 [facility] [address] [id number] [address] [place] [address] Dec, Acute midline low back pain without sciatica M54.5 [facility] [address] [id number] [address] [place] [address] Dec, [facility] [address] [id number] [address] [place] [address] Dec, Pelvic pain R10.2 and Acute midline low back pain without sciatica M54.5 [facility] [address] [id number] [address] [place] [address] Nov, [facility] [address] [id number] [address] [place] [address] October, [facility] [address] [id number] [address] [place] [address] October, [facility] [address] [id number] [address] [place] [address] Sep, Well woman exam Z01.419 and Cervical cancer screening Z12.4 [facility] [address] [id number] [address] [place] [address] Sep, [facility] [address] [facility] [id number] [address] [place] [address] Sep, Plantar fasciitis, right M72 .2 ; Left foot pain M79.672 and Trigger point of left side of body M79.1 [facility] [address] [facility] [id number] [address] [place] [address] Aug, [facility] [address] [facility] [id number] [address] [place] [address] Aug, Anxiety disorder, unspecifie d F41.9 ; Attention deficit hyperactivity disorder F90.9 and Major depressive disorder, recurrent episode with anxious distress F33.9 [facility] [address] [place] [id number] [address] [place] [address] Jul, [facility] [address] [facility] [id number] [address] [place] [address] Jun, Attention deficit disorder o f adult with hyperactivity F90.9 and Major depressive disorder, recurrent episode with anxious distress F33.9 [facility] [address] [facility] [id number] [address] [place] [address] Feb, Anxiety disorder, unspecifie d F41.9 ; Major depression F32.9 and Attention deficit hyperactivity disorder F90.9 [facility] [address] [facility] [id number] [address] [place] [address] Jan, [facility] [address] [id number] [address] [place] [address] Dec, [facility] [address] [facility] [id number] [address] [place] [address] Nov, [facility] [address] [facility] [id number] [address] [place] [address] October, Fatigue, unspecified type R5 3.83 [facility] [id number] [place] [address] October, [facility] [address] [address] October, Finger fracture S62.609A [facility] [address] [place] [id number] [address] [place] [address] Sep, [facility] [address] [address] Sep, Finger fracture S62.609A [facility] [address] [address] Sep, [facility] [address] [address] Sep, [place] [address] [address] Aug, Establishing care with [facility], encounter for Z71.89 ; Fatigue R53.83 ; Weakness R53.1 ; Ganglion cyst of left foot M67.472 ; Obesity E66.9 ; Family history of diabetes mellitus Z83.3 and Family history of early CAD Z82.49 [place] [address] [address] [place] [id number] [address] [place] [address] Aug, [facility] [address] [place] [id number] [address] [place] [address] Aug, Fatigue R53.83 [facility] [address] [address] Aug, Anxiety disorder, unspecifie d F41.9 ; Major depression F32.9 and Attention deficit hyperactivity disorder F90.9 [facility] [address] [place] [id number] [address] [place] [address] Jul, [facility] [address] [address] Jun, [facility] [address] [facility] [id number] [address] [place] [address] May, [facility] [address] [facility] [id number] [address] [place] [address] Apr, [facility] [address] [facility] [id number] [address] [place] [address] Apr, Attention deficit hyperactiv ity disorder F90.9 ; Major depression F32.9 and Anxiety disorder, unspecified F41.9 [facility] [address] [facility] [id number] [address] [place] [address] Mar, [facility] [address] [facility] [id number] [address] [place] [address] Mar, [facility] [address] [facility] [id number] [address] [place] [address] Feb, [facility] [address] [facility] [id number] [address] [place] [address] Feb, ADHD (attention deficit hype ractivity disorder) 314.01 ; Major depressive disorder, recurrent episode, moderate 296.32 and Anxiety state, unspecified 300.00 [facility] [address] [facility] [id number] [address] [place] [address] Jan, [facility] [address] [facility] [id number] [address] [place] [address] Dec, [facility] [address] [facility] [id number] [address] [place] [address] Nov, [facility] [address] [facility] [id number] [address] [place] [address] October, [facility] [address] [facility] [id number] [address] [place] [address] October, Anxiety state, unspecified 3 00.00 ; Attention deficit disorder of childhood with hyperactivity 314.01 and Major depressive disorder, recurrent episode, moderate 296.32 [facility] [address] [facility] [id number] [address] [place] [address] Sep, [facility] [address] [id number] [address] [place] [address], [place] [address] Sep, [facility] [address] [id number] [address] [place] [address], [place] [address] Aug, [facility] [address] [id number] [address] [place] [address], [place] [address] Aug, [facility] [address] [id number] [address] [place] [address], [place] [address] Jul, [facility] [address] [id number] [address] [place] [address], [place] [address] Jul, [facility] [address] [id number] [address] [place] [address], [place] [address] October, [facility] [address] [id number] [address] [place] [address], [place] [address] October, [facility] [address] [id number] [address] [place] [address], [place] [address] October, [facility] [address] [id number] [address] [place] [address], [place] [address] October, [facility] [address] [id number] [address] [place] [address], [place] [address] October, [facility] [address] [id number] [address] [place] [address], [place] [address] Sep, [facility] [address] [id number] [address] [place] [address], [place] [address] Sep, [facility] [address] [id number] [address] [place] [address], [place] [address] Sep, [facility] [address] [id number] [address] [place] [address], [place] [address] Sep, [facility] [address] [id number] [address] [place] [address], [place] [address] Dec, [facility] [address] [id number] [address] [place] [address], [place] [address] Dec, [facility] [address] [id number] [address] [place] [address], [place] [address] Nov, [facility] [address] [id number] [address] [place] [address], [place] [address] Nov, [facility] [address] [id number] [address] [place] [address], [place] [address] Nov, [facility] [address] [id number] [address] [place] [address], [place] [address] Nov, [facility] [address] [id number] [address] [place] [address], [place] [address] Jul, [facility] [address] [id number] [address] [place] [address], [place] [address] Jul, [facility] [address] [id number] [address] [place] [address], [place] [address] Jul, [facility] [address] [id number] [address] [place] [address], [place] [address] Jul, [facility] [address] [id number] [address] [place] [address], [place] [address] 17 Mar, 2011 [facility] [address] [id number] [address] [place] [address], [place] [id number] 14 Mar, 2011 [facility] [address] [id number] [address] [place] [address], [place] [address] 14 Mar, 2011 [facility] [address] [id number] [address] [place] [address], [place] [address] 11 Mar, 2011 [facility] [address] [id number] [address] [place] [address], [place] [id number] 11 Mar, 2011 [facility] [address] [id number] [address] [place] [address], [place] [address] 14 May, 2010 [facility] [address] [id number] [address] [place] [address], [place] [address] May, [facility] [address] [facility] [id number] [address] [place] [address] May, [facility] [address] [facility] [id number] [address] [place] [address] Mar, [facility] [address] [facility] [id number] [address] [place] [address] Mar, [facility] [address] [facility] [id number] [address] [place] [address] May, IMMUNIZATIONS No Known Immunizations SOCIAL HISTORY Never Assessed REASON FOR VISIT BH intake--Eder Farfan MA PLAN OF CARE Activity Details Follow Up 4 Weeks Reason: VITAL SIGNS Height 62 in 2017-03-20 Weight 254.5 lbs 2017-03-20 Heart Rate 82 bpm 2017-03-20 Respiratory Rate 20 2017-03-20 BMI 46.54 kg/m2 2017-03-20 Blood pressure systolic 132 mmHg 2017-03-20 Blood pressure diastolic 80 mmHg 2017-03-20 MEDICATIONS Medication Instructions Dosage Frequency Start Date End Date Duration S tatus Klonopin 1 MG Orally as needed once a day 1 tablet 24h Aug, Active HydrOXYzine HCl 10 MG Orally daily 1 tablet as needed 24h Mar 30 days Active Adderall 20 mg Orally one tablet in am and one half tablet at noon 1 tablet Mar, 28 days Active Cymbalta 60 MG Orally [...]
--- OUTSIDE RECORDS SUMMARY | 2019-12-03 14:09 | XMS REPORT ---
Author Author Sirisha Meier Doctor Organization [facility] Address Unknown Phone Unavailable Care Team Providers Care Software Engineer Developer Name Role Phone Migration, Doctor Unavailable Unavailable PROBLEMS Type Condition ICD9-CM Code [id number] Code Onset Dates Condition S tatus SNOMED Code Problem Family history of early CAD Z82.49 Ac tive 625373468 Problem Family history of diabetes mellitus Z83.3 Active 578320734 Problem Weakness R53.1 Active 01249451 Problem Establishing care with new doctor, encounter for Z 71.89 Active 571360847 Problem Major depressive disorder, recurrent episode wit h anxious distress F33.9 Active 37859988 Problem Fatigue R53.83 Active 43877687 Problem Menstrual migraine without status migrainosus, n ot intractable G43.829 Active 10746409 Problem Obesity E66.9 Active 418924838 Problem Ganglion cyst of left foot M67.472 Act olivia 726799721 Problem Finger fracture S62.609A Active 1817 1007 Problem Anxiety disorder, unspecified F41.9 Active 939605059 Problem Attention deficit hyperactivity disorder F90.9 Active 637603659 ALLERGIES No Information ENCOUNTERS Encounter Location Date Diagnosis [facility] [id number] [place] [id number] 20 Nov, 2017 Family history of early CAD Z82.49 ; Family history of diabetes mellitus Z83.3 and Fatigue R53.83 [facility] [address] [place] [id number] [address] [place] [id number] 18 Nov, 2018 Encounter for screening mamm ogram for breast cancer Z12.31 ; Menstrual migraine without status migrainosus, not intractable G43.829 ; BMI 50.0-59.9, adult Z68.43 ; Family history of diabetes mellitus Z83.3 ; Family history of early CAD Z82.49 and Fatigue R53.83 [facility] [address] [facility] [id number] [address] [place] [phone] Jun, Attention deficit hyperactiv ity disorder F90.9 [facility] [address] [id number] [address] [place] [phone] Jun, Attention deficit hyperactiv ity disorder F90.9 ; Major depressive disorder, recurrent episode with anxious distress F33.9 and BMI 45.0-49.9, adult Z68.42 [facility] [address] [id number] [address] [place] [phone] May, Major depressive disorder, r ecurrent episode with anxious distress F33.9 [facility] [address] [id number] [address] [place] [phone] Apr, Major depressive disorder, r ecurrent episode with anxious distress F33.9 and Attention deficit hyperactivity disorder F90.9 [place] [address] [id number] [address] [place] [phone] Apr, [place] [address] [id number] [address] [place] [phone] Mar, Attention deficit hyperactiv ity disorder F90.9 and Major depressive disorder, recurrent episode with anxious distress F33.9 [place] [address] [id number] [address] [place] [phone] Jan, [place] [address] [id number] [address] [place] [phone] Dec, Anxiety disorder, unspecifie d F41.9 ; Attention deficit hyperactivity disorder F90.9 and Major depressive disorder, recurrent episode with anxious distress F33.9 [facility] [address] [id number] [address] [place] [phone] Dec, Acute midline low back pain without sciatica M54.5 [place] [address] [id number] [address] [place] [phone] Dec, [facility] [address] [id number] [address] [place] [phone] Dec, Pelvic pain R10.2 and Acute midline low back pain without sciatica M54.5 [place] [address] [id number] [address] [place] [phone] Nov, [facility] [address] [id number] [address] [place] [phone] October, [facility] [address] [facility] [id number] [address] [place] [phone] October, [facility] [address] [facility] [id number] [address] [place] [phone] Sep, Well woman exam Z01.419 and Cervical cancer screening Z12.4 [place] [address] [facility] [id number] [address] [place] [phone] Sep, [place] [address] [place] [id number] [address] [place] [phone] Sep, Plantar fasciitis, right M72 .2 ; Left foot pain M79.672 and Trigger point of left side of body M79.1 [place] [address] [facility] [id number] [address] [place] [phone] Aug, [place] [address] [facility] [id number] [address] [place] [phone] Aug, Anxiety disorder, unspecifie d F41.9 ; Attention deficit hyperactivity disorder F90.9 and Major depressive disorder, recurrent episode with anxious distress F33.9 [place] [address] [facility] [id number] [address] [place] [phone] Jul, [place] [address] [facility] [id number] [address] [place] [phone] Jun, Attention deficit disorder o f adult with hyperactivity F90.9 and Major depressive disorder, recurrent episode with anxious distress F33.9 [place] [address] [facility] [id number] [address] [place] [phone] Feb, Anxiety disorder, unspecifie d F41.9 ; Major depression F32.9 and Attention deficit hyperactivity disorder F90.9 [place] [address] [facility] [id number] [address] [place] [phone] Jan, [facility] [address] [id number] [address] [place] [phone] Dec, [facility] [address] [facility] [id number] [address] [place] [phone] Nov, [facility] [address] [facility] [id number] [address] [place] [address] October, Fatigue, unspecified type R5 3.83 [facility] [address] [facility] [id number] [address] [place] [phone] October, [facility] [address] [facility] [id number] [address] [place] [address] October, Finger fracture S62.609A [facility] [address] [facility] [id number] [address] [place] [phone] Sep, [facility] [address] [facility] [id number] [address] [place] [address] Sep, Finger fracture S62.609A [facility] [address] [facility] [id number] [address] [place] [phone] Sep, [facility] [address] [facility] [id number] [address] [place] [phone] Sep, [facility] [address] [facility] [id number] [address] [place] [phone] Aug, Establishing care with chi khan, encounter for Z71.89 ; Fatigue R53.83 ; Weakness R53.1 ; Ganglion cyst of left foot M67.472 ; Obesity E66.9 ; Family history of diabetes mellitus Z83.3 and Family history of early CAD Z82.49 [facility] [address] [facility] [id number] [address] [place] [phone] 16 Aug, 2015 [facility] [address] [facility] [id number] [address] [place] [phone] Aug, Fatigue R53.83 [facility] [address] [place] [id number] [address] [place] [phone] Aug, Anxiety disorder, unspecifie d F41.9 ; Major depression F32.9 and Attention deficit hyperactivity disorder F90.9 [facility] [address] [facility] [id number] [address] [place] [phone] Jul, [facility] [address] [facility] [id number] [address] [place] [phone] Jun, [facility] [address] [place] [id number] [address] [place] [phone] May, [facility] [address] [facility] [id number] [address] [place] [phone] Apr, [facility] [address] [place] [id number] [address] [place] [phone] Apr, Attention deficit hyperactiv ity disorder F90.9 ; Major depression F32.9 and Anxiety disorder, unspecified F41.9 [facility] [address] [place] [id number] [address] [place] [phone] Mar, [facility] [address] [facility] [id number] [address] [place] [phone] Mar, [facility] [address] [place] [id number] [address] [place] [phone] Feb, [facility] [address] [place] [id number] [address] [place] [phone] Feb, ADHD (attention deficit hype ractivity disorder) 314.01 ; Major depressive disorder, recurrent episode, moderate 296.32 and Anxiety state, unspecified 300.00 [facility] [address] [facility] [id number] [address] [place] [phone] Jan, [facility] [address] [place] [id number] [address] [place] [phone] Dec, [facility] [address] [place] [id number] [address] [place] [phone] Nov, [facility] [address] [id number] [address] [place] [phone] October, [facility] [address] [id number] [address] [place] [phone] October, Anxiety state, unspecified 3 00.00 ; Attention deficit disorder of childhood with hyperactivity 314.01 and Major depressive disorder, recurrent episode, moderate 296.32 [facility] [address] [id number] [address] [place] [phone] 14 Sep, 2014 [facility] [address] [id number] [address] [place] [phone] Sep, [facility] [address] [id number] [address] [place] [phone] Aug, [facility] [address] [id number] [address] [place] [phone] Aug, [facility] [address] [id number] [address] [place] [phone] Jul, [facility] [address] [id number] [address] [place] [phone] Jul, [facility] [address] [id number] [address] [place] [phone] October, [facility] [address] [id number] [address] [place] [phone] October, [facility] [address] [id number] [address] [place] [phone] October, [facility] [address] [id number] [address] [place] [phone] October, [facility] [address] [id number] [address] [place] [phone] October, [facility] [address] [id number] [address] [place] [phone] Sep, [facility] [address] [id number] [address] [place] [phone] Sep, [facility] [address] [id number] [address] [place] [address], [place] [address] Sep, [facility] [address] [id number] [address] [place] [address], [place] [address] Sep, [facility] [address] [id number] [address] [place] [address], [place] [address] Dec, [facility] [address] [id number] [address] [place] [address], [place] [address] Dec, [facility] [address] [id number] [address] [place] [address], [place] [address] Nov, [facility] [address] [id number] [address] [place] [address], [place] [address] Nov, [facility] [address] [id number] [address] [place] [address], [place] [address] Nov, [facility] [address] [id number] [address] [place] [address], [place] [address] Nov, [facility] [address] [id number] [address] [place] [address], [place] [address] Jul, [facility] [address] [id number] [address] [place] [address], [place] [address] Jul, [facility] [address] [id number] [address] [place] [address], [place] [address] Jul, [facility] [address] [id number] [address] [place] [address], [place] [address] Jul, [facility] [address] [id number] [address] [place] [address], [place] [address] Mar, [facility] [address] [id number] [address] [place] [address], [place] [address] Mar, [facility] [address] [id number] [address] [place] [address], [place] [address] Mar, [facility] [address] [id number] [address] [place] [phone] 11 Mar, 2011 [facility] [address] [id number] [address] [place] [phone] Mar, [facility] [address] [id number] [address] [place] [phone] May, [facility] [address] [id number] [address] [place] [phone] May, [facility] [address] [id number] [address] [place] [phone] May, [facility] [address] [id number] [address] [place] [phone] Mar, [facility] [address] [id number] [address] [place] [phone] Mar, [facility] [address] [id number] [address] [place] [phone] May, IMMUNIZATIONS No Known Immunizations SOCIAL HISTORY Never Assessed REASON FOR VISIT [facility] [place] PLAN OF CARE VITAL SIGNS MEDICATIONS Medication Instructions Dosage Frequency Start Date End Date Duration S tatus Cymbalta 60 mg take 1 capsule (60 mg) by oral route once d aily Jul, Active Malarone 250-100 mg 1 Tablet by Po route 1 time per da y for 21 days October, Active Klonopin 1 mg 1 Tablet 0.5-1 tab by Oral route oral 1 time per day PRN FOR ANXIETY - 30 day supply Aug, Acti ve Adderall 20 mg 1 tablet by Oral rou te 1 time per day qAM AND0.5 Tablet by Oral route 1 time per day q Noon, for ADHD Aug, Active RESULTS No Results PROCEDURES No Known [...]
--- OUTSIDE RECORDS SUMMARY | 2019-12-03 14:09 | XMS REPORT ---
Author Author Sirisha Meier Doctor Organization [facility] [address] Address Unknown Phone Unavailable Care Team Providers Care Leather Colorer Name Role Phone Migration, Doctor Unavailable Unavailable PROBLEMS Type Condition ICD9-CM Code [id number] Code Onset Dates Condition S tatus SNOMED Code Problem Family history of early CAD Z82.49 Ac tive 794051793 Problem Family history of diabetes mellitus Z83.3 Active 088177994 Problem Weakness R53.1 Active 44955181 Problem Establishing care with new doctor, encounter for Z 71.89 Active 245885954 Problem Major depressive disorder, recurrent episode wit h anxious distress F33.9 Active 49850519 Problem Fatigue R53.83 Active 67482509 Problem Menstrual migraine without status migrainosus, n ot intractable G43.829 Active 34419682 Problem Obesity E66.9 Active 181220590 Problem Ganglion cyst of left foot M67.472 Act olivia 566504664 Problem Finger fracture S62.609A Active 1817 1007 Problem Anxiety disorder, unspecified F41.9 Active 577225522 Problem Attention deficit hyperactivity disorder F90.9 Active 184543932 ALLERGIES No Information ENCOUNTERS Encounter Location Date Diagnosis [facility] [id number] [place] [address] 20 Nov, 2017 Family history of early CAD Z82.49 ; Family history of diabetes mellitus Z83.3 and Fatigue R53.83 [facility] [address] [place] [id number] [address] [place] [id number] 18 Nov, 2018 Encounter for screening mamm ogram for breast cancer Z12.31 ; Menstrual migraine without status migrainosus, not intractable G43.829 ; BMI 50.0-59.9, adult Z68.43 ; Family history of diabetes mellitus Z83.3 ; Family history of early CAD Z82.49 and Fatigue R53.83 [facility] [address] [facility] [id number] [address] [place] [address] Jun, Attention deficit hyperactiv ity disorder F90.9 [facility] [address] [id number] [address] [place] [address] Jun, Attention deficit hyperactiv ity disorder F90.9 ; Major depressive disorder, recurrent episode with anxious distress F33.9 and BMI 45.0-49.9, adult Z68.42 [facility] [address] [id number] [address] [place] [address] May, Major depressive disorder, r ecurrent episode with anxious distress F33.9 [facility] [address] [id number] [address] [place] [address] Apr, Major depressive disorder, r ecurrent episode with anxious distress F33.9 and Attention deficit hyperactivity disorder F90.9 [place] [address] [id number] [address] [place] [address] Apr, [place] [address] [id number] [address] [place] [address] Mar, Attention deficit hyperactiv ity disorder F90.9 and Major depressive disorder, recurrent episode with anxious distress F33.9 [place] [address] [id number] [address] [place] [address] Jan, [place] [address] [id number] [address] [place] [address] Dec, Anxiety disorder, unspecifie d F41.9 ; Attention deficit hyperactivity disorder F90.9 and Major depressive disorder, recurrent episode with anxious distress F33.9 [facility] [address] [id number] [address] [place] [phone] Dec, Acute midline low back pain without sciatica M54.5 [place] [address] [id number] [address] [place] [phone] Dec, [facility] [address] [id number] [address] [place] [address] Dec, Pelvic pain R10.2 and Acute midline low back pain without sciatica M54.5 [place] [address] [id number] [address] [place] [address] Nov, [facility] [address] [id number] [address] [place] [phone] October, [facility] [address] [facility] [id number] [address] [place] [phone] October, [facility] [address] [facility] [id number] [address] [place] [address] Sep, Well woman exam Z01.419 and Cervical cancer screening Z12.4 [place] [address] [facility] [id number] [address] [place] [address] Sep, [place] [address] [place] [id number] [address] [place] [address] Sep, Plantar fasciitis, right M72 .2 ; Left foot pain M79.672 and Trigger point of left side of body M79.1 [place] [address] [facility] [id number] [address] [place] [address] Aug, [place] [address] [facility] [id number] [address] [place] [address] Aug, Anxiety disorder, unspecifie d F41.9 ; Attention deficit hyperactivity disorder F90.9 and Major depressive disorder, recurrent episode with anxious distress F33.9 [place] [address] [facility] [id number] [address] [place] [phone] Jul, [place] [address] [facility] [id number] [address] [place] [address] Jun, Attention deficit disorder o f adult with hyperactivity F90.9 and Major depressive disorder, recurrent episode with anxious distress F33.9 [place] [address] [facility] [id number] [address] [place] [phone] Feb, Anxiety disorder, unspecifie d F41.9 ; Major depression F32.9 and Attention deficit hyperactivity disorder F90.9 [place] [address] [facility] [id number] [address] [place] [address] Jan, [facility] [address] [id number] [address] [place] [phone] Dec, [facility] [address] [facility] [id number] [address] [place] [phone] Nov, [facility] [address] [facility] [id number] [address] [place] [address] October, Fatigue, unspecified type R5 3.83 [facility] [address] [facility] [id number] [address] [place] [address] October, [facility] [address] [facility] [id number] [address] [place] [address] October, Finger fracture S62.609A [facility] [address] [facility] [id number] [address] [place] [address] Sep, [facility] [address] [facility] [id number] [address] [place] [address] Sep, Finger fracture S62.609A [facility] [address] [facility] [id number] [address] [place] [address] Sep, [facility] [address] [facility] [id number] [address] [place] [address] Sep, [facility] [address] [facility] [id number] [address] [place] [address] Aug, Establishing care with chi khan, encounter for Z71.89 ; Fatigue R53.83 ; Weakness R53.1 ; Ganglion cyst of left foot M67.472 ; Obesity E66.9 ; Family history of diabetes mellitus Z83.3 and Family history of early CAD Z82.49 [facility] [address] [facility] [id number] [address] [place] [phone] 16 Aug, 2015 [facility] [address] [facility] [id number] [address] [place] [address] Aug, Fatigue R53.83 [facility] [address] [place] [id number] [place] [id number] Aug, Anxiety disorder, unspecifie d F41.9 ; Major depression F32.9 and Attention deficit hyperactivity disorder F90.9 [facility] [address] [facility] [id number] [address] [place] [phone] Jul, [facility] [address] [facility] [id number] [address] [place] [phone] Jun, [facility] [address] [place] [id number] [place] [phone] May, [facility] [address] [facility] [id number] [address] [place] [phone] Apr, [facility] [address] [place] [id number] [address] [place] [phone] Apr, Attention deficit hyperactiv ity disorder F90.9 ; Major depression F32.9 and Anxiety disorder, unspecified F41.9 [facility] [address] [place] [id number] [place] [phone] Mar, [facility] [address] [facility] [id number] [address] [place] [phone] Mar, [facility] [address] [place] [id number] [place] [address] Feb, [facility] [address] [place] [id number] [place] [phone] Feb, ADHD (attention deficit hype ractivity disorder) 314.01 ; Major depressive disorder, recurrent episode, moderate 296.32 and Anxiety state, unspecified 300.00 [facility] [address] [facility] [id number] [address] [place] [phone] Jan, [facility] [address] [place] [id number] [place] [address] Dec, [facility] [address] [place] [id number] [place] [phone] Nov, [facility] [address] [id number] [address] [place] [address] October, [facility] [address] [id number] [address] [place] [phone] October, Anxiety state, unspecified 3 00.00 ; Attention deficit disorder of childhood with hyperactivity 314.01 and Major depressive disorder, recurrent episode, moderate 296.32 [facility] [address] [id number] [address] [place] [id number] 14 Sep, 2014 [facility] [address] [id number] [address] [place] [phone] Sep, [facility] [address] [id number] [address] [place] [phone] Aug, [facility] [address] [id number] [address] [place] [phone] Aug, [facility] [address] [id number] [address] [place] [address] Jul, [facility] [address] [id number] [address] [place] [phone] Jul, [facility] [address] [id number] [address] [place] [address] October, [facility] [address] [id number] [address] [place] [phone] October, [facility] [address] [id number] [address] [place] [phone] October, [facility] [address] [id number] [address] [place] [phone] October, [facility] [address] [id number] [address] [place] [phone] October, [facility] [address] [id number] [address] [place] [phone] Sep, [facility] [address] [id number] [address] [place] [phone] Sep, [facility] [address] [id number] [address] [place] [address], [place] [address] Sep, [facility] [address] [id number] [address] [place] [address], [place] [address] Sep, [facility] [address] [id number] [address] [place] [address], [place] [address] Dec, [facility] [address] [id number] [address] [place] [address], [place] [address] Dec, [facility] [address] [id number] [address] [place] [address], [place] [address] Nov, [facility] [address] [id number] [address] [place] [address], [place] [address] Nov, [facility] [address] [id number] [address] [place] [address], [place] [address] Nov, [facility] [address] [id number] [address] [place] [address], [place] [address] Nov, [facility] [address] [id number] [address] [place] [address], [place] [address] Jul, [facility] [address] [id number] [address] [place] [address], [place] [address] Jul, [facility] [address] [id number] [address] [place] [address], [place] [address] Jul, [facility] [address] [id number] [address] [place] [address], [place] [address] Jul, [facility] [address] [id number] [address] [place] [address], [place] [address] Mar, [facility] [address] [id number] [address] [place] [address], [place] [address] Mar, [facility] [address] [id number] [address] [place] [address], [place] [address] Mar, [facility] [address] [id number] [address] [place] [phone] 11 Mar, 2011 [facility] [address] [id number] [address] [place] [phone] Mar, [facility] [address] [id number] [address] [place] [address] May, [facility] [address] [id number] [address] [place] [address] May, [facility] [address] [id number] [address] [place] [address] May, [facility] [address] [id number] [address] [place] [phone] Mar, [facility] [address] [id number] [address] [place] [address] Mar, [facility] [address] [id number] [address] [place] [address] May, IMMUNIZATIONS No Known Immunizations SOCIAL HISTORY Never Assessed REASON FOR VISIT EMR-[place] PLAN OF CARE VITAL SIGNS MEDICATIONS Unknown [...]
--- OUTSIDE RECORDS SUMMARY | 2019-12-03 14:09 | XMS REPORT ---
Author Author Sirisha BURT Organization [facility] Address [address] [place] [address] Care Team Providers Care Beamer Operator Name Role Phone RAMSES BURT Unavailable PROBLEMS Type Condition ICD9-CM Code VAP07-RU Code Onset Dates Condition S tatus SNOMED Code Problem Family history of early CAD Z82.49 Ac tive 988431720 Problem Weakness R53.1 Active 52282303 Problem Family history of diabetes mellitus Z83.3 Active 193497566 Problem Establishing care with new doctor, encounter for Z 71.89 Active 002536854 Problem Obesity E66.9 Active 153276027 Problem Fatigue R53.83 Active 49877068 Problem Menstrual migraine without status migrainosus, n ot intractable G43.829 Active 56003664 Problem Major depressive disorder, recurrent episode wit h anxious distress F33.9 Active 19326419 Problem Finger fracture S62.609A Active 1817 1007 Problem Ganglion cyst of left foot M67.472 Act olivia 163530757 Problem Attention deficit hyperactivity disorder F90.9 Active 551395694 Problem Anxiety disorder, unspecified F41.9 Active 230701053 ALLERGIES No Information ENCOUNTERS Encounter Location Date Diagnosis [place] [id number] [place] [id number] [address] [place] [id number] 20 Nov, 2017 Family history of early CAD Z82.49 ; Family history of diabetes mellitus Z83.3 and Fatigue R53.83 [facility] [address] [facility] [id number] [address] [place] [address] 18 Nov, 2017 Encounter for screening mamm ogram for breast cancer Z12.31 ; Menstrual migraine without status migrainosus, not intractable G43.829 ; BMI 50.0-59.9, adult Z68.43 ; Family history of diabetes mellitus Z83.3 ; Family history of early CAD Z82.49 and Fatigue R53.83 [facility] [address] [id number] [address] [place] [address] Jun, Attention deficit hyperactiv ity disorder F90.9 [facility] [address] [id number] [address] [place] [address] Jun, Attention deficit hyperactiv ity disorder F90.9 ; Major depressive disorder, recurrent episode with anxious distress F33.9 and BMI 45.0-49.9, adult Z68.42 [facility] [address] [facility] [id number] [address] [place] [phone] May, Major depressive disorder, r ecurrent episode with anxious distress F33.9 [place] [address] [id number] [address] [place] [phone] Apr, Major depressive disorder, r ecurrent episode with anxious distress F33.9 and Attention deficit hyperactivity disorder F90.9 [place] [address] [facility] [id number] [address] [place] [phone] Apr, [place] [address] [id number] [address] [place] [address] Mar, Attention deficit hyperactiv ity disorder F90.9 and Major depressive disorder, recurrent episode with anxious distress F33.9 [place] [address] [id number] [address] [place] [address] Jan, [place] [address] [id number] [address] [place] [address] Dec, Anxiety disorder, unspecifie d F41.9 ; Attention deficit hyperactivity disorder F90.9 and Major depressive disorder, recurrent episode with anxious distress F33.9 [place] [address] [id number] [address] [place] [address] Dec, Acute midline low back pain without sciatica M54.5 [facility] [address] [id number] [address] [place] [address] Dec, [facility] [address] [facility] [id number] [address] [place] [address] Dec, Pelvic pain R10.2 and Acute midline low back pain without sciatica M54.5 [facility] [address] [id number] [address] [place] [address] Nov, [facility] [address] [id number] [address] [place] [address] October, [facility] [address] [facility] [id number] [address] [place] [address] October, [facility] [address] [id number] [address] [place] [address] Sep, Well woman exam Z01.419 and Cervical cancer screening Z12.4 [place] [address] [facility] [id number] [address] [place] [address] Sep, [place] [address] [facility] [id number] [address] [place] [address] Sep, Plantar fasciitis, right M72 .2 ; Left foot pain M79.672 and Trigger point of left side of body M79.1 [facility] [address] [id number] [address] [place] [address] Aug, [place] [address] [facility] [id number] [address] [place] [address] Aug, Anxiety disorder, unspecifie d F41.9 ; Attention deficit hyperactivity disorder F90.9 and Major depressive disorder, recurrent episode with anxious distress F33.9 [facility] [address] [facility] [id number] [address] [place] [address] Jul, [facility] [address] [id number] [address] [place] [address] Jun, Attention deficit disorder o f adult with hyperactivity F90.9 and Major depressive disorder, recurrent episode with anxious distress F33.9 [facility] [address] [id number] [address] [place] [address] Feb, Anxiety disorder, unspecifie d F41.9 ; Major depression F32.9 and Attention deficit hyperactivity disorder F90.9 [facility] [address] [facility] [id number] [address] [place] [address] Jan, [facility] [address] [facility] [id number] [address] [place] [phone] Dec, [facility] [address] [facility] [id number] [address] [place] [address] Nov, [facility] [address] [facility] [id number] [address] [place] [id number] October, Fatigue, unspecified type R5 3.83 [facility] [address] [facility] [id number] [address] [place] [address] October, [facility] [address] [place] [id number] [address] [place] [address] October, Finger fracture S62.609A [facility] [address] [place] [id number] [address] [place] [address] Sep, [facility] [address] [place] [id number] [address] [place] [address] Sep, Finger fracture S62.609A [facility] [address] [place] [id number] [address] [place] [address] Sep, [facility] [address] [place] [id number] [address] [place] [id number] Sep, [facility] [address] [place] [id number] [address] [place] [address] Aug, Establishing care with chi khan, encounter for Z71.89 ; Fatigue R53.83 ; Weakness R53.1 ; Ganglion cyst of left foot M67.472 ; Obesity E66.9 ; Family history of diabetes mellitus Z83.3 and Family history of early CAD Z82.49 [facility] [address] [place] [id number] [address] [place] [id number] 16 Aug, 2015 [facility] [address] [place] [id number] [address] [place] [address] Aug, Fatigue R53.83 [facility] [address] [facility] [id number] [address] [place] [address] Aug, Anxiety disorder, unspecifie d F41.9 ; Major depression F32.9 and Attention deficit hyperactivity disorder F90.9 [facility] [address] [facility] [id number] [address] [place] [address] Jul, [facility] [address] [place] [id number] [address] [place] [address] Jun, [facility] [address] [facility] [id number] [address] [place] [address] May, [facility] [address] [place] [id number] [address] [place] [address] Apr, [facility] [address] [place] [id number] [address] [place] [address] Apr, Attention deficit hyperactiv ity disorder F90.9 ; Major depression F32.9 and Anxiety disorder, unspecified F41.9 [facility] [address] [facility] [id number] [address] [place] [address] Mar, [facility] [address] [place] [id number] [address] [place] [phone] Mar, [facility] [address] [facility] [id number] [address] [place] [address] Feb, [facility] [address] [place] [id number] [address] [place] [id number] 16 Feb, 2015 ADHD (attention deficit hype ractivity disorder) 314.01 ; Major depressive disorder, recurrent episode, moderate 296.32 and Anxiety state, unspecified 300.00 [facility] [address] [facility] [id number] [address] [place] [address] Jan, [facility] [address] [facility] [id number] [address] [place] [address] Dec, [facility] [address] [place] [id number] [address] [place] [address], [place] [address] Nov, [facility] [address] [id number] [address] [place] [address] October, [facility] [address] [id number] [address] [place] [address], [place] [address] October, Anxiety state, unspecified 3 00.00 ; Attention deficit disorder of childhood with hyperactivity 314.01 and Major depressive disorder, recurrent episode, moderate 296.32 [facility] [address] [id number] [address] [place] [address], [place] [address] 14 Sep, 2014 [facility] [address] [id number] [address] [place] [address], [place] [address] Sep, [facility] [address] [id number] [address] [place] [address] Aug, [facility] [address] [id number] [address] [place] [address] Aug, [facility] [address] [id number] [address] [place] [address] Jul, [facility] [address] [id number] [address] [place] [address], [place] [address] Jul, [facility] [address] [id number] [address] [place] [address] October, [facility] [address] [id number] [address] [place] [address] October, [facility] [address] [id number] [address] [place] [phone] October, [facility] [address] [id number] [address] [place] [address] October, [facility] [address] [id number] [address] [place] [phone] October, [facility] [address] [id number] [address] [place] [address] Sep, [facility] [address] [id number] [address] [place] [address], [place] [address] Sep, [facility] [address] [id number] [address] [place] [address], [place] [address] Sep, [facility] [address] [id number] [address] [place] [address], [place] [address] Sep, [facility] [address] [id number] [address] [place] [address], [place] [address] Dec, [facility] [address] [id number] [address] [place] [address], [place] [address] Dec, [facility] [address] [id number] [address] [place] [address], [place] [address] Nov, [facility] [address] [id number] [address] [place] [address], [place] [address] Nov, [facility] [address] [id number] [address] [place] [address], [place] [address] Nov, [facility] [address] [id number] [address] [place] [address], [place] [address] Nov, [facility] [address] [id number] [address] [place] [address], [place] [address] Jul, [facility] [address] [id number] [address] [place] [address], [place] [address] Jul, [facility] [address] [id number] [address] [place] [address], [place] [address] Jul, [facility] [address] [id number] [address] [place] [address], [place] [address] Jul, [facility] [address] [id number] [address] [place] [address], [place] [address] Mar, [facility] [address] [id number] [address] [place] [address], [place] [address] Mar, [facility] [address] [id number] [address] [place] [id number] 14 Mar, 2011 [facility] [address] [id number] [address] [place] [id number] 11 Mar, 2011 [facility] [address] [id number] [address] [place] [address] 11 Mar, 2011 [facility] [address] [id number] [address] [place] [id number] 14 May, 2010 [facility] [address] [id number] [address] [place] [address] 14 May, 2010 [facility] [address] [id number] [address] [place] [address] May, [facility] [address] [id number] [address] [place] [address] Mar, [facility] [address] [id number] [address] [place] [address] Mar, [facility] [address] [id number] [address] [place] [address] May, IMMUNIZATIONS No Known Immunizations SOCIAL HISTORY Never Assessed REASON FOR VISIT Lab (walk-in) PLAN OF CARE VITAL SIGNS MEDICATIONS Unknown Medications RESULTS No Results PROCEDURES Procedure Date Ordered Result Body Site LIPID PANEL November 29, 2017 COMPREHEN METABOLIC PANEL November 29, 2017 ASSAY THYROID STIM HORMONE November 29, 2017 COMPLETE CBC W/AUTO DIFF WBC November 29, 2017 VENIPUNCT, ROUTINE* November 29, 2017 Hemoglobin Test Send Out 0 dollar November 29, 2017 INSTRUCTIONS MEDICATIONS ADMINISTERED No Known Medications MEDICAL [...]
--- OUTSIDE RECORDS SUMMARY | 2019-12-03 14:09 | XMS REPORT ---
Author Author Sirisha BURT Organization [facility] Address [address] [place] [address] Care Team Providers Care Glove Tagger Name Role Phone RAMSES BURT Unavailable PROBLEMS Type Condition ICD9-CM Code DUS55-OJ Code Onset Dates Condition S tatus SNOMED Code Problem Family history of early CAD Z82.49 Ac tive 841531359 Problem Weakness R53.1 Active 49901344 Problem Family history of diabetes mellitus Z83.3 Active 244442558 Problem Establishing care with new doctor, encounter for Z 71.89 Active 572650624 Problem Obesity E66.9 Active 128044210 Problem Fatigue R53.83 Active 25333389 Problem Menstrual migraine without status migrainosus, n ot intractable G43.829 Active 90325376 Problem Major depressive disorder, recurrent episode wit h anxious distress F33.9 Active 95613057 Problem Finger fracture S62.609A Active 1817 1007 Problem Ganglion cyst of left foot M67.472 Act olivia 576382126 Problem Attention deficit hyperactivity disorder F90.9 Active 770369876 Problem Anxiety disorder, unspecified F41.9 Active [id number] ALLERGIES No Known Allergies ENCOUNTERS Encounter Location Date Diagnosis [place] [id number] [place] [id number] [address] [place] [phone] Nov, Family history of early CAD Z82.49 ; Family history of diabetes mellitus Z83.3 and Fatigue R53.83 [facility] [address] [facility] [id number] [address] [place] [id number] 18 Nov, 2017 Encounter for screening mamm ogram for breast cancer Z12.31 ; Menstrual migraine without status migrainosus, not intractable G43.829 ; BMI 50.0-59.9, adult Z68.43 ; Family history of diabetes mellitus Z83.3 ; Family history of early CAD Z82.49 and Fatigue R53.83 [facility] [address] [id number] [address] [place] [id number] Jun, Attention deficit hyperactiv ity disorder F90.9 [facility] [address] [id number] [address] [place] [phone] Jun, Attention deficit hyperactiv ity disorder F90.9 ; Major depressive disorder, recurrent episode with anxious distress F33.9 and BMI 45.0-49.9, adult Z68.42 [facility] [address] [facility] [id number] [address] [place] [phone] May, Major depressive disorder, r ecurrent episode with anxious distress F33.9 [place] [address] [id number] [address] [place] [phone] Apr, Major depressive disorder, r ecurrent episode with anxious distress F33.9 and Attention deficit hyperactivity disorder F90.9 [place] [address] [facility] [id number] [address] [place] [phone] Apr, [facility] [address] [id number] [address] [place] [address] Mar, Attention deficit hyperactiv ity disorder F90.9 and Major depressive disorder, recurrent episode with anxious distress F33.9 [place] [address] [id number] [address] [place] [phone] Jan, [facility] [address] [id number] [address] [place] [phone] Dec, Anxiety disorder, unspecifie d F41.9 ; Attention deficit hyperactivity disorder F90.9 and Major depressive disorder, recurrent episode with anxious distress F33.9 [facility] [address] [id number] [address] [place] [phone] Dec, Acute midline low back pain without sciatica M54.5 [facility] [address] [id number] [address] [place] [phone] Dec, [facility] [address] [facility] [id number] [address] [place] [phone] Dec, Pelvic pain R10.2 and Acute midline low back pain without sciatica M54.5 [facility] [address] [id number] [address] [place] [phone] Nov, [facility] [address] [id number] [address] [place] [phone] October, [facility] [address] [facility] [id number] [address] [place] [phone] October, [facility] [address] [id number] [address] [place] [phone] Sep, Well woman exam Z01.419 and Cervical cancer screening Z12.4 [place] [address] [facility] [id number] [address] [place] [address] Sep, [place] [address] [facility] [id number] [address] [place] [address] Sep, Plantar fasciitis, right M72 .2 ; Left foot pain M79.672 and Trigger point of left side of body M79.1 [facility] [address] [id number] [address] [place] [phone] Aug, [place] [address] [facility] [id number] [address] [place] [phone] Aug, Anxiety disorder, unspecifie d F41.9 ; Attention deficit hyperactivity disorder F90.9 and Major depressive disorder, recurrent episode with anxious distress F33.9 [facility] [address] [facility] [id number] [address] [place] [phone] Jul, [facility] [address] [id number] [address] [place] [address] Jun, Attention deficit disorder o f adult with hyperactivity F90.9 and Major depressive disorder, recurrent episode with anxious distress F33.9 [facility] [address] [facility] [id number] [address] [place] [phone] Feb, Anxiety disorder, unspecifie d F41.9 ; Major depression F32.9 and Attention deficit hyperactivity disorder F90.9 [facility] [address] [place] [id number] [address] [place] [address] Jan, [facility] [address] [facility] [id number] [address] [place] [phone] Dec, [facility] [address] [facility] [id number] [address] [place] [id number] Nov, [facility] [address] [place] [id number] [place] [address] October, Fatigue, unspecified type R5 3.83 [facility] [address] [place] [id number] [place] [address] October, [facility] [address] [place] [id number] [address] [place] [address] October, Finger fracture S62.609A [facility] [address] [place] [id number] [address] [place] [address] Sep, [facility] [address] [place] [id number] [address] [place] [address] Sep, Finger fracture S62.609A [facility] [address] [place] [id number] [address] [place] [address] Sep, [facility] [address] [place] [id number] [address] [place] [address] Sep, [facility] [address] [place] [id number] [place] [address] Aug, Establishing care with chi khan, encounter for Z71.89 ; Fatigue R53.83 ; Weakness R53.1 ; Ganglion cyst of left foot M67.472 ; Obesity E66.9 ; Family history of diabetes mellitus Z83.3 and Family history of early CAD Z82.49 [facility] [address] [place] [id number] [address] [place] [id number] 16 Aug, 2015 [facility] [address] [place] [id number] [address] [place] [id number] 14 Aug, 2015 Fatigue R53.83 [facility] [address] [facility] [id number] [address] [place] [phone] Aug, Anxiety disorder, unspecifie d F41.9 ; Major depression F32.9 and Attention deficit hyperactivity disorder F90.9 [facility] [address] [facility] [id number] [address] [place] [phone] Jul, [facility] [address] [place] [id number] [address] [place] [address] Jun, [facility] [address] [place] [id number] [address] [place] [phone] May, [facility] [address] [place] [id number] [address] [place] [id number] Apr, [facility] [address] [place] [id number] [place] [address] Apr, Attention deficit hyperactiv ity disorder F90.9 ; Major depression F32.9 and Anxiety disorder, unspecified F41.9 [facility] [address] [place] [id number] [address] [place] [id number] Mar, [facility] [address] [place] [id number] [address] [place] [id number] Mar, [facility] [address] [place] [id number] [address] [place] [address] Feb, [facility] [address] [place] [id number] [address] [place] [id number] 16 Feb, 2015 ADHD (attention deficit hype ractivity disorder) 314.01 ; Major depressive disorder, recurrent episode, moderate 296.32 and Anxiety state, unspecified 300.00 [facility] [address] [facility] [id number] [address] [place] [phone] Jan, [facility] [address] [place] [id number] [address] [place] [phone] Dec, [facility] [address] [facility] [id number] [address] [place] [phone] Nov, [facility] [address] [id number] [address] [place] [address] October, [facility] [address] [id number] [address] [place] [address] October, Anxiety state, unspecified 3 00.00 ; Attention deficit disorder of childhood with hyperactivity 314.01 and Major depressive disorder, recurrent episode, moderate 296.32 [facility] [address] [id number] [address] [place] [address] 14 Sep, 2014 [facility] [address] [id number] [address] [place] [phone] Sep, [facility] [address] [id number] [address] [place] [phone] Aug, [facility] [address] [id number] [address] [place] [phone] Aug, [facility] [address] [id number] [address] [place] [phone] Jul, [facility] [address] [id number] [address] [place] [phone] Jul, [facility] [address] [id number] [address] [place] [phone] October, [facility] [address] [id number] [address] [place] [phone] October, [facility] [address] [id number] [address] [place] [phone] October, [facility] [address] [id number] [address] [place] [id number] October, [facility] [address] [id number] [address] [place] [phone] October, [facility] [address] [id number] [address] [place] [phone] Sep, [facility] [address] [id number] [address] [place] [address], [place] [address] Sep, [facility] [address] [id number] [address] [place] [address], [place] [address] Sep, [facility] [address] [id number] [address] [place] [address], [place] [address] Sep, [facility] [address] [id number] [address] [place] [address], [place] [address] Dec, [facility] [address] [id number] [address] [place] [address], [place] [address] Dec, [facility] [address] [id number] [address] [place] [address], [place] [address] Nov, [facility] [address] [id number] [address] [place] [address], [place] [address] Nov, [facility] [address] [id number] [address] [place] [address], [place] [address] Nov, [facility] [address] [id number] [address] [place] [address], [place] [address] Nov, [facility] [address] [id number] [address] [place] [address], [place] [address] Jul, [facility] [address] [id number] [address] [place] [address], [place] [address] Jul, [facility] [address] [id number] [address] [place] [address], [place] [address] Jul, [facility] [address] [id number] [address] [place] [address], [place] [address] Jul, [facility] [address] [id number] [address] [place] [address], [place] [address] Mar, [facility] [address] [id number] [address] [place] [address], [place] [address] Mar, [facility] [address] [id number] [address] [place] [phone] 14 Mar, 2011 [facility] [address] [id number] [address] [place] [phone] 11 Mar, 2011 [facility] [address] [id number] [address] [place] [id number] 11 Mar, 2011 [facility] [address] [id number] [address] [place] [id number] 14 May, 2010 [facility] [address] [id number] [address] [place] [phone] May, [facility] [address] [id number] [address] [place] [phone] May, [facility] [address] [id number] [address] [place] [phone] Mar, [facility] [address] [id number] [address] [place] [phone] Mar, [facility] [address] [id number] [address] [place] [phone] May, IMMUNIZATIONS No Known Immunizations SOCIAL HISTORY Never Assessed REASON FOR VISIT Well Woman Exam, PT has no additional concerns but does want cb-Josse SHOEMAKER PLAN OF CARE Activity Details Follow Up 1 Year Reason: Pending Test Mammogram, Bilateral Screeni ng VITAL SIGNS Height 62 in 2017-11-27 Weight 280.0 lbs 2017-11-27 Temperature 98.9 degrees Fahrenheit 2017-11-27 Heart Rate 78 bpm 2017-11-27 Respiratory Rate 18 2017-11-27 BMI 51.21 kg/m2 2017-11-27 Blood pressure systolic 112 mmHg 2017-11-27 Blood pressure diastolic 72 mmHg 2017-11-27 MEDICATIONS Medication Instructions Dosage Frequency Start Date End Date Duration S tatus Klonopin Active ibuprofen 200 mg Oral PRN 3 tabes Active Magnesium 125 MG Orally 3 times a day days #15 thru 28 of cycle 1 t ablet Nov, Active RESULTS No Results PROCEDURES No Known [...]
--- OUTSIDE RECORDS SUMMARY | 2019-12-03 14:10 | XMS REPORT ---
Author Author Sirisha SHABAZZ Organization [facility] Address [address] [place] [address] Care Team Providers Care Bag Loader Name Role Phone HARIKA MARIANELA Unavailable PROBLEMS Type Condition ICD9-CM Code EUM91-JP Code Onset Dates Condition S tatus SNOMED Code Problem Fatigue R53.83 Active 83489706 Problem Family history of diabetes mellitus Z83.3 Active 298389050 Problem Family history of early CAD Z82.49 Ac tive 702999221 Problem Establishing care with new doctor, encounter for Z 71.89 Active 802993293 Problem Obesity E66.9 Active 670674114 Problem Major depressive disorder, recurrent episode wit h anxious distress F33.9 Active 67194002 Problem Attention deficit hyperactivity disorder F90.9 Active 612448442 Problem Ganglion cyst of left foot M67.472 Act olivia 046801333 Problem Weakness R53.1 Active 25548743 Problem Anxiety disorder, unspecified F41.9 Active 180623802 Problem Finger fracture S62.609A Active 1817 1007 ALLERGIES No Information ENCOUNTERS Encounter Location Date Diagnosis [place] [address] [facility] [id number] [address] [place] [phone] Nov, [facility] [address] [facility] [id number] [address] [place] [phone] Jun, Attention deficit hyperactiv ity disorder F90.9 [facility] [address] [facility] [id number] [address] [place] [id number] Jun, Attention deficit hyperactiv ity disorder F90.9 ; Major depressive disorder, recurrent episode with anxious distress F33.9 and BMI 45.0-49.9, adult Z68.42 [facility] [address] [facility] [id number] [address] [place] [phone] 11 May, 2017 Major depressive disorder, r ecurrent episode with anxious distress F33.9 [facility] [address] [id number] [address] [place] [phone] Apr, Major depressive disorder, r ecurrent episode with anxious distress F33.9 and Attention deficit hyperactivity disorder F90.9 [facility] [address] [id number] [address] [place] [phone] Apr, [facility] [address] [id number] [address] [place] [phone] Mar, Attention deficit hyperactiv ity disorder F90.9 and Major depressive disorder, recurrent episode with anxious distress F33.9 [facility] [address] [id number] [address] [place] [phone] Jan, [facility] [address] [id number] [address] [place] [phone] Dec, Anxiety disorder, unspecifie d F41.9 ; Attention deficit hyperactivity disorder F90.9 and Major depressive disorder, recurrent episode with anxious distress F33.9 [facility] [address] [id number] [address] [place] [phone] Dec, Acute midline low back pain without sciatica M54.5 [facility] [address] [id number] [address] [place] [phone] Dec, [facility] [address] [id number] [address] [place] [phone] Dec, Pelvic pain R10.2 and Acute midline low back pain without sciatica M54.5 [facility] [address] [id number] [address] [place] [phone] Nov, [facility] [address] [id number] [address] [place] [phone] October, [facility] [address] [id number] [address] [place] [phone] October, [facility] [address] [id number] [address] [place] [phone] Sep, Well woman exam Z01.419 and Cervical cancer screening Z12.4 [facility] [address] [id number] [address] [place] [phone] Sep, [facility] [address] [facility] [id number] [address] [place] [id number] Sep, Plantar fasciitis, right M72 .2 ; Left foot pain M79.672 and Trigger point of left side of body M79.1 [facility] [address] [id number] [address] [place] [phone] Aug, [facility] [address] [id number] [address] [place] [phone] Aug, Anxiety disorder, unspecifie d F41.9 ; Attention deficit hyperactivity disorder F90.9 and Major depressive disorder, recurrent episode with anxious distress F33.9 [place] [address] [place] [id number] [address] [place] [phone] Jul, [facility] [address] [facility] [id number] [address] [place] [phone] Jun, Attention deficit disorder o f adult with hyperactivity F90.9 and Major depressive disorder, recurrent episode with anxious distress F33.9 [place] [address] [facility] [id number] [address] [place] [phone] Feb, Anxiety disorder, unspecifie d F41.9 ; Major depression F32.9 and Attention deficit hyperactivity disorder F90.9 [facility] [address] [facility] [id number] [address] [place] [phone] Jan, [facility] [address] [id number] [address] [place] [phone] Dec, [place] [address] [facility] [id number] [address] [place] [phone] Nov, [facility] [address] [facility] [id number] [address] [place] [phone] October, Fatigue, unspecified type R5 3.83 [place] [id number] [place] [phone] October, [facility] [address] [id number] October, Finger fracture S62.609A [facility] [address] [place] [id number] [address] [place] [id number] Sep, [facility] [address] [id number] Sep, Finger fracture S62.609A [facility] [address] [id number] Sep, [facility] [address] [id number] Sep, [facility] [address] [id number] Aug, Establishing care with [facility], encounter for Z71.89 ; Fatigue R53.83 ; Weakness R53.1 ; Ganglion cyst of left foot M67.472 ; Obesity E66.9 ; Family history of diabetes mellitus Z83.3 and Family history of early CAD Z82.49 [facility] [address] [place] [id number] [address] [place] [phone] Aug, [facility] [address] [place] [id number] [address] [place] [phone] Aug, Fatigue R53.83 [facility] [address] [id number] Aug, Anxiety disorder, unspecifie d F41.9 ; Major depression F32.9 and Attention deficit hyperactivity disorder F90.9 [facility] [address] [place] [id number] [address] [place] [id number] Jul, [facility] [address] [place] [id number] [address] [place] [phone] Jun, [facility] [address] [place] [id number] [address] [place] [phone] May, [facility] [address] [facility] [id number] [address] [place] [phone] Apr, [facility] [address] [facility] [id number] [address] [place] [id number] Apr, Attention deficit hyperactiv ity disorder F90.9 ; Major depression F32.9 and Anxiety disorder, unspecified F41.9 [facility] [address] [facility] [id number] [address] [place] [id number] Mar, [facility] [address] [facility] [id number] [address] [place] [phone] Mar, [facility] [address] [facility] [id number] [address] [place] [phone] Feb, [facility] [address] [facility] [id number] [address] [place] [id number] Feb, ADHD (attention deficit hype ractivity disorder) 314.01 ; Major depressive disorder, recurrent episode, moderate 296.32 and Anxiety state, unspecified 300.00 [facility] [address] [facility] [id number] [address] [place] [phone] Jan, [facility] [address] [facility] [id number] [address] [place] [phone] Dec, [facility] [address] [facility] [id number] [address] [place] [phone] Nov, [facility] [address] [facility] [id number] [address] [place] [id number] October, [facility] [address] [facility] [id number] [address] [place] [phone] October, Anxiety state, unspecified 3 00.00 ; Attention deficit disorder of childhood with hyperactivity 314.01 and Major depressive disorder, recurrent episode, moderate 296.32 [facility] [address] [facility] [id number] [address] [place] [phone] Sep, [facility] [address] [id number] [address] [place] [address], [place] [address] Sep, [facility] [address] [id number] [address] [place] [address], [place] [address] Aug, [facility] [address] [id number] [address] [place] [address], [place] [address] Aug, [facility] [address] [id number] [address] [place] [address], [place] [address] Jul, [facility] [address] [id number] [address] [place] [address], [place] [address] Jul, [facility] [address] [id number] [address] [place] [address], [place] [address] October, [facility] [address] [id number] [address] [place] [address], [place] [address] October, [facility] [address] [id number] [address] [place] [address], [place] [address] October, [facility] [address] [id number] [address] [place] [address], [place] [address] October, [facility] [address] [id number] [address] [place] [address], [place] [address] October, [facility] [address] [id number] [address] [place] [address], [place] [address] Sep, [facility] [address] [id number] [address] [place] [address], [place] [address] Sep, [facility] [address] [id number] [address] [place] [address], [place] [address] Sep, [facility] [address] [id number] [address] [place] [address], [place] [address] Sep, [facility] [address] [id number] [address] [place] [address], [place] [address] Dec, [facility] [address] [id number] [address] [place] [address], [place] [address] Dec, [facility] [address] [id number] [address] [place] [address], [place] [address] Nov, [facility] [address] [id number] [address] [place] [address], [place] [address] Nov, [facility] [address] [id number] [address] [place] [address], [place] [address] Nov, [facility] [address] [id number] [address] [place] [address], [place] [address] Nov, [facility] [address] [id number] [address] [place] [address], [place] [address] Jul, [facility] [address] [id number] [address] [place] [address], [place] [address] Jul, [facility] [address] [id number] [address] [place] [address], [place] [address] Jul, [facility] [address] [id number] [address] [place] [address], [place] [address] Jul, [facility] [address] [id number] [address] [place] [address], [place] [address] 17 Mar, 2011 [facility] [address] [id number] [address] [place] [address], [place] [address] 14 Mar, 2011 [facility] [address] [id number] [address] [place] [address], [place] [id number] 14 Mar, 2011 [facility] [address] [id number] [address] [place] [id number] 11 Mar, 2011 [facility] [address] [id number] [address] [place] [address], [place] [address] 11 Mar, 2011 [facility] [address] [id number] [address] [place] [address], [place] [address] 14 May, 2010 [facility] [address] [id number] [address] [place] [address], [place] [address] May, [facility] [address] [facility] [id number] [address] [place] [phone] May, [facility] [address] [facility] [id number] [address] [place] [id number] Mar, [facility] [address] [facility] [id number] [address] [place] [phone] Mar, [facility] [address] [facility] [id number] [address] [place] [phone] May, IMMUNIZATIONS No Known Immunizations SOCIAL HISTORY Never Assessed REASON FOR VISIT adderall 04/18/2017 PLAN OF CARE VITAL SIGNS MEDICATIONS Medication Instructions Dosage Frequency Start Date End Date Duration S prateekus Adderall 20 mg Orally one tablet in am and one half tablet at noon 1 tablet Apr, 28 days Active RESULTS No Results PROCEDURES No [...]
--- OUTSIDE RECORDS SUMMARY | 2019-12-03 14:10 | XMS REPORT ---
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 Problem STATE HEP A (ADULT) DX V05.3 Activ e Problem Acute serous otitis media 381.01 Ac tive Problem Anxiety state, unspecified 300.00 A ctive Problem Cough 786.2 Active Problem Other specified counseling V65.49 A ctive Problem MENINGOCOCCAL DX V03.89 Active Problem Attention deficit disorder of childhood with hyperacti vity 314.01 Active Problem Major depressive disorder, recurrent episode, moderate 296.32 Active Problem Screening for malignant neoplasm of the cervix V76.2 Active Problem Special screening examination, human papillomavirus [H PV] V73.81 Active Problem Unspecified breast screening V76.10 Active Medications Medication Code System Code Instructions Start Date End Date Status Dosage Adderall [facility] [address]-11 10 MG Orally twi ce a day Dr [place] to sign for Marco A Feb 25, 2015 1/2 tablet Results No Known Results Summary Purpose [employer] Submission
--- OUTSIDE RECORDS SUMMARY | 2019-12-03 14:10 | XMS REPORT ---
Author Author Sirisha Weinstein Organization [facility] Address Unknown Care Team Providers Care Clinical Applications Manager Name Role Phone DARSHAN Weinstein Unavailable PROBLEMS Type Condition ICD9-CM Code MNN81-PM Code Onset Dates Condition S tatus SNOMED Code Problem Fatigue R53.83 Active 90027587 Problem Family history of diabetes mellitus Z83.3 Active 383344981 Problem Family history of early CAD Z82.49 Ac tive 652023560 Problem Establishing care with new doctor, encounter for Z 71.89 Active 473064319 Problem Obesity E66.9 Active 338961012 Problem Major depressive disorder, recurrent episode wit h anxious distress F33.9 Active 98792287 Problem Attention deficit hyperactivity disorder F90.9 Active 427389229 Problem Ganglion cyst of left foot M67.472 Act olivia 042296216 Problem Weakness R53.1 Active 74216933 Problem Anxiety disorder, unspecified F41.9 Active 122302413 Problem Finger fracture S62.609A Active 1817 1007 ALLERGIES No Information SOCIAL HISTORY Never Assessed PLAN OF CARE VITAL SIGNS MEDICATIONS Medication Instructions Dosage Frequency Start Date End Date Duration S tatus Klonopin 1 MG Orally as needed once a day 1 tablet 24h Aug, 30 days Active RESULTS No Results PROCEDURES No Known procedures IMMUNIZATIONS No Known Immunizations MEDICAL (GENERAL) HISTORY Type Description Date Medical History ADD Medical History Depression Medical History High cholesterol Medical History Vitamin D deficiency Surgical History 1997 Surgical History Left ankle surgery Hospitalization History Stitches in right hand finger next t o pinky Hospitalization History Surgery
--- OUTSIDE RECORDS SUMMARY | 2019-12-03 14:10 | XMS REPORT ---
Author Author Sirisha MATHEW Organization [employer] Address Unknown Phone Unavailable Care Team Providers Care Java Programming Professor Name Role Phone DARSHAN MATHEW CP Unavailable [...] Start Date End Date Status Dosage Adderall [facility] [address]-44 10 MG Orally twi ce a day Dr [place] to sign for Marco A Feb 25, 2015 1/2 tablet Results No Known Results Summary Purpose [employer] Submission
--- OUTSIDE RECORDS SUMMARY | 2019-12-03 14:10 | XMS REPORT ---
Author Author Sirisha MATHEW Organization [employer] Address Unknown Phone Unavailable Care Team Providers Care Capper Machine Operator Name Role Phone DARSHAN MATHEW CP Unavailable Allergies No Known Allergies Problems Problem Type Condition Code Onset Dates Condition Statu s Problem Acute serous otitis media 381.01 Ac tive Problem Family history of early CAD Z82.49 Active Problem Cough 786.2 Active Problem Establishing care with new doctor, encounter for Z71.8 9 Active Problem Screening for malignant neoplasm of the cervix V76.2 Active Problem Fatigue R53.83 Active Problem Finger fracture S62.609A Active Problem Obesity E66.9 Active Problem Family history of diabetes mellitus Z83.3 Active Problem Weakness R53.1 Active Problem Ganglion cyst of left foot M67.472 A ctive Problem Screening examination for venereal disease V74.5 Active Problem STATE HEP A (ADULT) DX V05.3 Activ e Problem Special screening examination, human papillomavirus [H PV] V73.81 Active Problem Unspecified breast screening V76.10 Active Problem Other specified counseling V65.49 A ctive Problem Major depressive disorder, recurrent episode, moderate 296.32 Active Problem 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
--- OUTSIDE RECORDS SUMMARY | 2019-12-03 14:10 | XMS REPORT ---
Author Author Sirisha BURT [facility] Address [address] [place] [address] Care Team Providers Care Hot Plate Plywood Press Operator Name Role Phone RAMSES BURT Unavailable PROBLEMS Type Condition ICD9-CM Code EBS85-HJ Code Onset Dates Condition S tatus SNOMED Code Problem Fatigue R53.83 Active 01399459 Problem Family history of diabetes mellitus Z83.3 Active 858105807 Problem Family history of early CAD Z82.49 Ac tive 367816358 Problem Establishing care with new doctor, encounter for Z 71.89 Active 865031444 Problem Obesity E66.9 Active 827919738 Problem Major depressive disorder, recurrent episode wit h anxious distress F33.9 Active 00206457 Problem Attention deficit hyperactivity disorder F90.9 Active 396460979 Problem Ganglion cyst of left foot M67.472 Act [place]ivia 371590959 Problem Weakness R53.1 Active 60788535 Problem Anxiety disorder, unspecified F41.9 Active 437417601 Problem Finger fracture S62.609A Active 1817 1007 ALLERGIES No Known Allergies SOCIAL HISTORY Never Assessed PLAN OF CARE Activity Details Follow Up prn Reason: VITAL SIGNS Height 62 in 2016-09-28 Weight 254.9 lbs 2016-09-28 Temperature 98.4 degrees Fahrenheit 2016-09-28 Heart Rate 84 bpm 2016-09-28 Respiratory Rate 18 2016-09-28 BMI 46.62 kg/m2 2016-09-28 Blood pressure systolic 120 mmHg 2016-09-28 Blood pressure diastolic 80 mmHg 2016-09-28 MEDICATIONS Medication Instructions Dosage Frequency Start Date End Date Duration S tatus Cymbalta 30 MG Orally Once a day 1 capsule 24h Aug, 30 days Active Klonopin 1 MG Orally as needed once a day 1 tablet 24h Aug, 30 days Active Cymbalta 60 MG Orally Once a day 1 capsule 24h Apr, 30 days Active Adderall 20 mg Orally one tablet in am and one half tablet at noon 1 tablet Sep, 28 days Active RESULTS Name Result Date Reference Range PDF Report 2016-09-28 PDF Report1 LCLS PROCEDURES Procedure Date Ordered Result Body Site SPECIMEN HANDLING September 28, 2016 IMMUNIZATIONS No Known Immunizations MEDICAL (GENERAL) HISTORY Type Description Date Medical History ADD Medical History Depression Medical History High cholesterol Medical History Vitamin D deficiency Surgical History 1997 Surgical History Left ankle surgery Hospitalization History Stitches in right hand finger next t o pinky Hospitalization History Surgery
--- OUTSIDE RECORDS SUMMARY | 2019-12-03 14:10 | XMS REPORT ---
Author Author Sirisha LEMUS [facility] Address [address] [place] [address] Care Team Providers Care Store Custodian Name Role Phone DIANA LEMUS Unavailable PROBLEMS Type Condition ICD9-CM Code NUU20-ZB Code Onset Dates Condition S tatus SNOMED Code Problem Fatigue R53.83 Active 84620288 Problem Family history of diabetes mellitus Z83.3 Active 785218858 Problem Family history of early CAD Z82.49 Ac tive 605745011 Problem Establishing care with new doctor, encounter for Z 71.89 Active 519686611 Problem Obesity E66.9 Active 621731678 Problem Major depressive disorder, recurrent episode wit h anxious distress F33.9 Active 97795826 Problem Attention deficit hyperactivity disorder F90.9 Active 423729932 Problem Ganglion cyst of left foot M67.472 Act olivia 736489469 Problem Weakness R53.1 Active 00157097 Problem Anxiety disorder, unspecified F41.9 Active 672698309 Problem Finger fracture S62.609A Active 1817 1007 ALLERGIES No Information ENCOUNTERS Encounter Location Date Diagnosis [place] [id number] [facility] [id number] [address] [place] [address] October, [facility] [address] [facility] [id number] [address] [place] [address] Jun, Attention deficit hyperactiv ity disorder F90.9 [facility] [address] [facility] [id number] [address] [place] [address] Jun, Attention deficit hyperactiv ity disorder F90.9 ; Major depressive disorder, recurrent episode with anxious distress F33.9 and BMI 45.0-49.9, adult Z68.42 [facility] [address] [facility] [id number] [address] [place] [address] May, Major depressive disorder, r ecurrent episode with anxious distress F33.9 [facility] [address] [id number] [address] [place] [address] Apr, Major depressive disorder, r ecurrent episode with anxious distress F33.9 and Attention deficit hyperactivity disorder F90.9 [facility] [address] [id number] [address] [place] [address] Apr, [facility] [address] [id number] [address] [place] [address] Mar, Attention deficit hyperactiv ity disorder F90.9 and Major depressive disorder, recurrent episode with anxious distress F33.9 [facility] [address] [id number] [address] [place] [address] Jan, [facility] [address] [id number] [address] [place] [address] Dec, Anxiety disorder, unspecifie d F41.9 ; Attention deficit hyperactivity disorder F90.9 and Major depressive disorder, recurrent episode with anxious distress F33.9 [facility] [address] [id number] [address] [place] [address] Dec, Acute midline low back pain without sciatica M54.5 [facility] [address] [id number] [address] [place] [address] Dec, [facility] [address] [id number] [address] [place] [address] Dec, Pelvic pain R10.2 and Acute midline low back pain without sciatica M54.5 [facility] [address] [id number] [address] [place] [address] Nov, [facility] [address] [id number] [address] [place] [address] October, [facility] [address] [id number] [address] [place] [address] October, [facility] [address] [id number] [address] [place] [address] Sep, Well woman exam Z01.419 and Cervical cancer screening Z12.4 [facility] [address] [id number] [address] [place] [address] Sep, [place] [address] [facility] [id number] [address] [place] [address] Sep, Plantar fasciitis, right M72 .2 ; Left foot pain M79.672 and Trigger point of left side of body M79.1 [place] [address] [facility] [id number] [address] [place] [address] Aug, [place] [address] [facility] [id number] [address] [place] [address] Aug, Anxiety disorder, unspecifie d F41.9 ; Attention deficit hyperactivity disorder F90.9 and Major depressive disorder, recurrent episode with anxious distress F33.9 [place] [address] [place] [id number] [address] [place] [address] Jul, [place] [address] [facility] [id number] [address] [place] [address] Jun, Attention deficit disorder o f adult with hyperactivity F90.9 and Major depressive disorder, recurrent episode with anxious distress F33.9 [place] [address] [facility] [id number] [address] [place] [address] Feb, Anxiety disorder, unspecifie d F41.9 ; Major depression F32.9 and Attention deficit hyperactivity disorder F90.9 [place] [address] [facility] [id number] [address] [place] [phone] Jan, [place] [address] [facility] [id number] [address] [place] [address] Dec, [place] [address] [facility] [id number] [address] [place] [address] Nov, [place] [address] [facility] [id number] [address] [place] [address] October, Fatigue, unspecified type R5 3.83 [place] [id number] [place] [address] October, [facility] [address] [address] October, Finger fracture S62.609A [facility] [address] [place] [id number] [address] [place] [address] Sep, [facility] [address] [address] Sep, Finger fracture S62.609A [facility] [address] [address] Sep, [facility] [address] [address] Sep, [facility] [address] [place] [id number] [address] [place] [address] Aug, Establishing care with chi khan, encounter for Z71.89 ; Fatigue R53.83 ; Weakness R53.1 ; Ganglion cyst of left foot M67.472 ; Obesity E66.9 ; Family history of diabetes mellitus Z83.3 and Family history of early CAD Z82.49 [facility] [address] [place] [id number] [address] [place] [address] Aug, [facility] [address] [place] [address] Aug, Fatigue R53.83 [facility] [address] [place] [id number] [address] [place] [address] Aug, Anxiety disorder, unspecifie d F41.9 ; Major depression F32.9 and Attention deficit hyperactivity disorder F90.9 [facility] [address] [place] [address] Jul, [facility] [address] [place] [id number] [address] [place] [address] Jun, [facility] [address] [place] [id number] [address] [place] [address] May, [facility] [address] [id number] [address] [place] [address] Apr, [facility] [address] [facility] [id number] [address] [place] [address] Apr, Attention deficit hyperactiv ity disorder F90.9 ; Major depression F32.9 and Anxiety disorder, unspecified F41.9 [facility] [address] [facility] [id number] [address] [place] [address] Mar, [facility] [address] [facility] [id number] [address] [place] [address] Mar, [facility] [address] [facility] [id number] [address] [place] [address] Feb, [facility] [address] [facility] [id number] [address] [place] [address] Feb, ADHD (attention deficit hype ractivity disorder) 314.01 ; Major depressive disorder, recurrent episode, moderate 296.32 and Anxiety state, unspecified 300.00 [facility] [address] [facility] [id number] [address] [place] [address] Jan, [facility] [address] [facility] [id number] [address] [place] [address] Dec, [facility] [address] [facility] [id number] [address] [place] [address] Nov, [facility] [address] [facility] [id number] [address] [place] [address] October, [facility] [address] [facility] [id number] [address] [place] [address] October, Anxiety state, unspecified 3 00.00 ; Attention deficit disorder of childhood with hyperactivity 314.01 and Major depressive disorder, recurrent episode, moderate 296.32 [facility] [address] [facility] [id number] [address] [place] [address] Sep, [facility] [address] [id number] [address] [place] [address], [place] [address] Sep, [facility] [address] [id number] [address] [place] [address], [place] [address] Aug, [facility] [address] [id number] [address] [place] [address], [place] [address] Aug, [facility] [address] [id number] [address] [place] [address], [place] [address] Jul, [facility] [address] [id number] [address] [place] [address], [place] [address] Jul, [facility] [address] [id number] [address] [place] [address], [place] [address] October, [facility] [address] [id number] [address] [place] [address], [place] [address] October, [facility] [address] [id number] [address] [place] [address], [place] [address] October, [facility] [address] [id number] [address] [place] [address], [place] [address] October, [facility] [address] [id number] [address] [place] [address], [place] [address] October, [facility] [address] [id number] [address] [place] [address], [place] [address] Sep, [facility] [address] [id number] [address] [place] [address], [place] [address] Sep, [facility] [address] [id number] [address] [place] [address], [place] [address] Sep, [facility] [address] [id number] [address] [place] [address], [place] [address] Sep, [facility] [address] [id number] [address] [place] [address], [place] [address] Dec, [facility] [address] [id number] [address] [place] [address] Dec, [facility] [address] [id number] [address] [place] [address], [place] [address] Nov, [facility] [address] [id number] [address] [place] [address], [place] [address] Nov, [facility] [address] [id number] [address] [place] [address], [place] [address] Nov, [facility] [address] [id number] [address] [place] [address], [place] [address] Nov, [facility] [address] [id number] [address] [place] [address], [place] [address] Jul, [facility] [address] [id number] [address] [place] [address], [place] [address] Jul, [facility] [address] [id number] [address] [place] [address], [place] [address] Jul, [facility] [address] [id number] [address] [place] [address], [place] [address] Jul, [facility] [address] [id number] [address] [place] [address], [place] [address] 17 Mar, 2011 [facility] [address] [id number] [address] [place] [address], [place] [address] 14 Mar, 2011 [facility] [address] [id number] [address] [place] [address], [place] [address] 14 Mar, 2011 [facility] [address] [id number] [address] [place] [phone] 11 Mar, 2011 [facility] [address] [id number] [address] [place] [address], [place] [address] 11 Mar, 2011 [facility] [address] [id number] [address] [place] [address], [place] [address] 14 May, 2010 [facility] [address] [id number] [address] [place] [address] 14 May, 2010 [facility] [address] [facility] [id number] [address] [place] [address] May, [facility] [address] [facility] [id number] [address] [place] [address] Mar, [facility] [address] [facility] [id number] [address] [place] [address] Mar, [facility] [address] [facility] [id number] [address] [place] [address] May, IMMUNIZATIONS No Known Immunizations SOCIAL HISTORY Never Assessed REASON FOR VISIT adderall 02/03/2017 PLAN OF CARE VITAL SIGNS MEDICATIONS Medication Instructions Dosage Frequency Start Date End Date Duration S prateekus Adderall 20 mg Orally one tablet in am and one half tablet at noon 1 tablet Jan, 30 days Active RESULTS No Results PROCEDURES [...]
--- OUTSIDE RECORDS SUMMARY | 2019-12-03 14:10 | XMS REPORT ---
Author Author Sirisha MATHEW [facility] e[employer] Address Unknown Phone Unavailable Care Team Providers Care Rotary Lithographic Press Operator Name Role Phone DARSHAN MATHEW CP Unavailable Allergies, Adverse Reactions, Alerts Substance Reaction Event Type N.K.D.A. Info Not Available Non Drug Allergy Problems Problem Type Condition Code Onset Dates [...] depressive disorder, recurrent episode, moderate 296.32 Active Assessment Attention deficit hyperactivity disorder F90.9 Active Problem Screening for malignant neoplasm of the cervix V76.2 Active Assessment Anxiety disorder, unspecified F41.9 Active Problem Special screening examination, human papillomavirus [H PV] V73.81 Active Assessment Major depression F32.9 Active Problem Unspecified breast screening V76.10 Active Medications Medication Code System Code Instructions Start Date End Date Status Dosage Klonopin [facility] [address]-81 1 MG Orally Once a day PRN for ANXIETY August 26, 2014 0.5-1 Tablet Adderall [facility] [address]-00 10 MG Orally twice a day To dd to sign for Marco A Feb 25, 2015 1/2 tablet [place]-3 Fatty Acids NDC 0 1000 MG Orally Once a day 1 capsule Cymbalta [facility] [address]-73 60 MG Orally Once a day Apr 29, 2015 1 capsule Procedures Procedure Coding System Code Date Office Visit, Est Pt., Level 3 CPT-4 20003 Apr 29, 2015 Vital Signs Date/Time: Apr 29, 2015 Cardiac Monitoring Heart Rate 68 bpm Weight 253 lbs Height 62 in BMI 46.27 Index Blood Pressure Diastolic 74 mmHg Blood Pressure Systolic 122 mmHg Results No Known Results Summary Purpose eClinicalWorks Submission
--- OUTSIDE RECORDS SUMMARY | 2019-12-03 14:10 | XMS REPORT ---
Author Author Sirisha MATHEW Organization [employer] Address Unknown Phone Unavailable Care Team Providers Care Bin Tripper Operator Name Role Phone DARSHAN MATHEW CP [...] Start Date End Date Status Dosage Adderall [facility] [address]-52 10 MG Orally twi ce a day Dr [place] to sign for Marco A Feb 25, 2015 1/2 tablet Results No Known Results Summary Purpose eClinicalWorks Submission
--- OUTSIDE RECORDS SUMMARY | 2019-12-03 14:10 | XMS REPORT ---
Author Author Sirisha SHABAZZ Organization [facility] Address [address] [place] [address] Care Team Providers Care Property Underwriter Name Role Phone HARIKA MARIANELA Unavailable PROBLEMS Type Condition ICD9-CM Code WRM60-LE Code Onset Dates Condition S tatus SNOMED Code Problem Fatigue R53.83 Active 84332714 Problem Family history of diabetes mellitus Z83.3 Active 911321027 Problem Family history of early CAD Z82.49 Ac tive 801581269 Problem Establishing care with new doctor, encounter for Z 71.89 Active 229699112 Problem Obesity E66.9 Active 309231760 Problem Major depressive disorder, recurrent episode wit h anxious distress F33.9 Active 25417855 Problem Attention deficit hyperactivity disorder F90.9 Active 896642019 Problem Ganglion cyst of left foot M67.472 Act olivia 223785086 Problem Weakness R53.1 Active 55015581 Problem Anxiety disorder, unspecified F41.9 Active 649629290 Problem Finger fracture S62.609A Active 1817 1007 ALLERGIES No Information ENCOUNTERS Encounter Location Date Diagnosis [place] [address] [facility] [id number] [address] [place] [address] Nov, [facility] [address] [facility] [id number] [address] [place] [address] Jun, Attention deficit hyperactiv ity disorder F90.9 [facility] [address] [facility] [id number] [address] [place] [address] Jun, Attention deficit hyperactiv ity disorder F90.9 ; Major depressive disorder, recurrent episode with anxious distress F33.9 and BMI 45.0-49.9, adult Z68.42 [facility] [address] [facility] [id number] [address] [place] [id number] 11 May, 2017 Major depressive disorder, r ecurrent episode with anxious distress F33.9 [facility] [address] [id number] [address] [place] [address] Apr, Major depressive disorder, r ecurrent episode with anxious distress F33.9 and Attention deficit hyperactivity disorder F90.9 [facility] [address] [id number] [address] [place] [phone] Apr, [facility] [address] [id number] [address] [place] [address] Mar, Attention deficit hyperactiv ity disorder F90.9 and Major depressive disorder, recurrent episode with anxious distress F33.9 [facility] [address] [id number] [address] [place] [phone] Jan, [facility] [address] [id number] [address] [place] [phone] Dec, Anxiety disorder, unspecifie d F41.9 ; Attention deficit hyperactivity disorder F90.9 and Major depressive disorder, recurrent episode with anxious distress F33.9 [facility] [address] [id number] [address] [place] [id number] Dec, Acute midline low back pain without sciatica M54.5 [facility] [address] [id number] [address] [place] [phone] Dec, [facility] [address] [id number] [address] [place] [phone] Dec, Pelvic pain R10.2 and Acute midline low back pain without sciatica M54.5 [facility] [address] [id number] [address] [place] [phone] Nov, [facility] [address] [id number] [address] [place] [phone] October, [facility] [address] [id number] [address] [place] [address] October, [facility] [address] [id number] [address] [place] [address] Sep, Well woman exam Z01.419 and Cervical cancer screening Z12.4 [facility] [address] [id number] [address] [place] [phone] Sep, [facility] [address] [facility] [id number] [address] [place] [phone] Sep, Plantar fasciitis, right M72 .2 ; Left foot pain M79.672 and Trigger point of left side of body M79.1 [facility] [address] [id number] [address] [place] [address] Aug, [facility] [address] [id number] [address] [place] [phone] Aug, Anxiety disorder, unspecifie d F41.9 ; Attention deficit hyperactivity disorder F90.9 and Major depressive disorder, recurrent episode with anxious distress F33.9 [place] [address] [place] [id number] [address] [place] [id number] Jul, [facility] [address] [facility] [id number] [address] [place] [phone] Jun, Attention deficit disorder o f adult with hyperactivity F90.9 and Major depressive disorder, recurrent episode with anxious distress F33.9 [place] [address] [facility] [id number] [address] [place] [address] Feb, Anxiety disorder, unspecifie d F41.9 ; Major depression F32.9 and Attention deficit hyperactivity disorder F90.9 [facility] [address] [facility] [id number] [address] [place] [address] Jan, [facility] [address] [id number] [address] [place] [phone] Dec, [place] [address] [facility] [id number] [address] [place] [address] Nov, [facility] [address] [facility] [id number] [address] [place] [phone] October, Fatigue, unspecified type R5 3.83 [place] [id number] [place] [address] October, [facility] [address] [address] October, Finger fracture S62.609A [facility] [address] [place] [id number] [address] [place] [address] Sep, [facility] [address] [address] Sep, Finger fracture S62.609A [facility] [address] [address] Sep, [facility] [address] [address] Sep, [facility] [address] [address] Aug, Establishing care with chi khan, encounter for Z71.89 ; Fatigue R53.83 ; Weakness R53.1 ; Ganglion cyst of left foot M67.472 ; Obesity E66.9 ; Family history of diabetes mellitus Z83.3 and Family history of early CAD Z82.49 [facility] [address] [place] [id number] [address] [place] [address] Aug, [facility] [address] [place] [id number] [address] [place] [address] Aug, Fatigue R53.83 [facility] [address] [address] Aug, Anxiety disorder, unspecifie d F41.9 ; Major depression F32.9 and Attention deficit hyperactivity disorder F90.9 [facility] [address] [place] [id number] [address] [place] [address] Jul, [facility] [address] [place] [id number] [address] [place] [address] Jun, [facility] [address] [place] [id number] [address] [place] [phone] May, [facility] [address] [facility] [id number] [address] [place] [phone] Apr, [facility] [address] [facility] [id number] [address] [place] [address] Apr, Attention deficit hyperactiv ity disorder F90.9 ; Major depression F32.9 and Anxiety disorder, unspecified F41.9 [facility] [address] [facility] [id number] [address] [place] [address] Mar, [facility] [address] [facility] [id number] [address] [place] [phone] Mar, [facility] [address] [facility] [id number] [address] [place] [phone] Feb, [facility] [address] [facility] [id number] [address] [place] [phone] Feb, ADHD (attention deficit hype ractivity disorder) 314.01 ; Major depressive disorder, recurrent episode, moderate 296.32 and Anxiety state, unspecified 300.00 [facility] [address] [facility] [id number] [address] [place] [phone] Jan, [facility] [address] [facility] [id number] [address] [place] [address] Dec, [facility] [address] [facility] [id number] [address] [place] [address] Nov, [facility] [address] [facility] [id number] [address] [place] [phone] October, [facility] [address] [facility] [id number] [address] [place] [phone] October, Anxiety state, unspecified 3 00.00 ; Attention deficit disorder of childhood with hyperactivity 314.01 and Major depressive disorder, recurrent episode, moderate 296.32 [facility] [address] [facility] [id number] [address] [place] [phone] Sep, [facility] [address] [id number] [address] [place] [address], [place] [address] Sep, [facility] [address] [id number] [address] [place] [address], [place] [address] Aug, [facility] [address] [id number] [address] [place] [address], [place] [address] Aug, [facility] [address] [id number] [address] [place] [address], [place] [address] Jul, [facility] [address] [id number] [address] [place] [address], [place] [address] Jul, [facility] [address] [id number] [address] [place] [address], [place] [address] October, [facility] [address] [id number] [address] [place] [address], [place] [address] October, [facility] [address] [id number] [address] [place] [address], [place] [address] October, [facility] [address] [id number] [address] [place] [address], [place] [address] October, [facility] [address] [id number] [address] [place] [address], [place] [address] October, [facility] [address] [id number] [address] [place] [address], [place] [address] Sep, [facility] [address] [id number] [address] [place] [address], [place] [address] Sep, [facility] [address] [id number] [address] [place] [address], [place] [address] Sep, [facility] [address] [id number] [address] [place] [address], [place] [address] Sep, [facility] [address] [id number] [address] [place] [address], [place] [address] Dec, [facility] [address] [id number] [address] [place] [address], [place] [address] Dec, [facility] [address] [id number] [address] [place] [address], [place] [address] Nov, [facility] [address] [id number] [address] [place] [address], [place] [address] Nov, [facility] [address] [id number] [address] [place] [address], [place] [address] Nov, [facility] [address] [id number] [address] [place] [address], [place] [address] Nov, [facility] [address] [id number] [address] [place] [address], [place] [address] Jul, [facility] [address] [id number] [address] [place] [address], [place] [address] Jul, [facility] [address] [id number] [address] [place] [address], [place] [address] Jul, [facility] [address] [id number] [address] [place] [address], [place] [address] Jul, [facility] [address] [id number] [address] [place] [address], [place] [address] 17 Mar, 2011 [facility] [address] [id number] [address] [place] [address], [place] [address] 14 Mar, 2011 [facility] [address] [id number] [address] [place] [address], [place] [address] 14 Mar, 2011 [facility] [address] [id number] [address] [place] [address] 11 Mar, 2011 [facility] [address] [id number] [address] [place] [address], [place] [address] 11 Mar, 2011 [facility] [address] [id number] [address] [place] [address], [place] [address] 14 May, 2010 [facility] [address] [id number] [address] [place] [address], [place] [address] May, [facility] [address] [facility] [id number] [address] [place] [phone] May, [facility] [address] [facility] [id number] [address] [place] [phone] Mar, [facility] [address] [facility] [id number] [address] [place] [phone] Mar, [facility] [address] [facility] [id number] [address] [place] [address] May, IMMUNIZATIONS No Known Immunizations SOCIAL HISTORY Never Assessed REASON FOR VISIT adderall 05/22/2017 PLAN OF CARE VITAL SIGNS MEDICATIONS Medication Instructions Dosage Frequency Start Date End Date Duration S prateekus Adderall 20 mg Orally one tablet in am and one half tablet at noon 1 tablet May, 28 days Active RESULTS No Results PROCEDURES [...]
--- OUTSIDE RECORDS SUMMARY | 2019-12-03 14:10 | XMS REPORT ---
Author Author Sirisha MATHEW Organization [employer] Address Unknown Phone Unavailable Care Team Providers Care Press Operator Helper Name Role Phone DARSHAN MATHEW Unavailable Allergies No Known Allergies Problems Problem [...] Start Date End Date Status Dosage Adderall [facility] [address]-28 10 MG Orally twice a day To dd to sign for Marco A Feb 25, 2015 1/2 tablet Results No Known Results Summary Purpose [employer] Submission
--- OUTSIDE RECORDS SUMMARY | 2019-12-03 14:10 | XMS REPORT ---
Author Author Sirisha Weinstein Organization [facility] Address Unknown Care Team Providers Care Media Services Coordinator Name Role Phone DARSHAN Weinstein Unavailable PROBLEMS Type Condition ICD9-CM Code YUA15-ZX Code Onset Dates Condition S tatus SNOMED Code Problem Fatigue R53.83 Active 82311174 Problem Family history of diabetes mellitus Z83.3 Active 343753186 Problem Family history of early CAD Z82.49 Ac tive 477207190 Problem Establishing care with new doctor, encounter for Z 71.89 Active 899750115 Problem Obesity E66.9 Active 348883446 Problem Major depressive disorder, recurrent episode wit h anxious distress F33.9 Active 45704558 Problem Attention deficit hyperactivity disorder F90.9 Active 040339002 Problem Ganglion cyst of left foot M67.472 Act olivia 460763913 Problem Weakness R53.1 Active 16938216 Problem Anxiety disorder, unspecified F41.9 Active 867890431 Problem Finger fracture S62.609A Active 1817 1007 ALLERGIES No Known Allergies ENCOUNTERS Encounter Location Date Diagnosis [facility] [address] [id number] [address] [place] [address] October, [facility] [address] [id number] [address] [place] [address] Jun, Attention deficit hyperactiv ity disorder F90.9 [facility] [address] [facility] [id number] [address] [place] [address] Jun, Attention deficit hyperactiv ity disorder F90.9 ; Major depressive disorder, recurrent episode with anxious distress F33.9 and BMI 45.0-49.9, adult Z68.42 [facility] [address] [id number] [address] [place] [address] May, Major depressive disorder, r ecurrent episode with anxious distress F33.9 [facility] [address] [id number] [address] [place] [address] Apr, Major depressive disorder, r ecurrent episode with anxious distress F33.9 and Attention deficit hyperactivity disorder F90.9 [facility] [address] [id number] [address] [place] [address] Apr, [facility] [address] [id number] [address] [place] [address] Mar, Attention deficit hyperactiv ity disorder F90.9 and Major depressive disorder, recurrent episode with anxious distress F33.9 [facility] [address] [id number] [address] [place] [address] Jan, [facility] [address] [id number] [address] [place] [address] Dec, Anxiety disorder, unspecifie d F41.9 ; Attention deficit hyperactivity disorder F90.9 and Major depressive disorder, recurrent episode with anxious distress F33.9 [facility] [address] [id number] [address] [place] [address] Dec, Acute midline low back pain without sciatica M54.5 [facility] [address] [id number] [address] [place] [address] Dec, [facility] [address] [id number] [address] [place] [address] Dec, Pelvic pain R10.2 and Acute midline low back pain without sciatica M54.5 [facility] [address] [id number] [address] [place] [address] Nov, [facility] [address] [id number] [address] [place] [address] October, [facility] [address] [id number] [address] [place] [address] October, [facility] [address] [id number] [address] [place] [address] Sep, Well woman exam Z01.419 and Cervical cancer screening Z12.4 [facility] [address] [id number] [address] [place] [address] Sep, [facility] [address] [id number] [address] [place] [address] Sep, Plantar fasciitis, right M72 .2 ; Left foot pain M79.672 and Trigger point of left side of body M79.1 [facility] [address] [id number] [address] [place] [address] Aug, [facility] [address] [id number] [address] [place] [address] Aug, Anxiety disorder, unspecifie d F41.9 ; Attention deficit hyperactivity disorder F90.9 and Major depressive disorder, recurrent episode with anxious distress F33.9 [facility] [address] [id number] [address] [place] [address] Jul, [facility] [address] [place] [id number] [address] [place] [address] Jun, Attention deficit disorder o f adult with hyperactivity F90.9 and Major depressive disorder, recurrent episode with anxious distress F33.9 [facility] [address] [place] [id number] [address] [place] [address] Feb, Anxiety disorder, unspecifie d F41.9 ; Major depression F32.9 and Attention deficit hyperactivity disorder F90.9 [facility] [address] [place] [id number] [address] [place] [address] Jan, [facility] [address] [id number] [address] [place] [address] Dec, [facility] [address] [place] [id number] [address] [place] [address] Nov, [facility] [address] [place] [id number] [address] [place] [address] October, Fatigue, unspecified type R5 3.83 [facility] [place] [address] [place] [id number] [address] [place] [address] October, [facility] [address] [address] October, Finger fracture S62.609A [facility] [address] [facility] [id number] [address] [place] [address] Sep, [facility] [address] [address] Sep, Finger fracture S62.609A [facility] [address] [address] Sep, [facility] [address] [address] Sep, [facility] [address] [address] Aug, Establishing care with chi khan, encounter for Z71.89 ; Fatigue R53.83 ; Weakness R53.1 ; Ganglion cyst of left foot M67.472 ; Obesity E66.9 ; Family history of diabetes mellitus Z83.3 and Family history of early CAD Z82.49 [place] [address] [place] [id number] [address] [place] [address] Aug, [facility] [address] [id number] [address] [place] [address] Aug, Fatigue R53.83 [facility] [address] [address] Aug, Anxiety disorder, unspecifie d F41.9 ; Major depression F32.9 and Attention deficit hyperactivity disorder F90.9 [facility] [address] [place] [id number] [address] [place] [address] Jul, [facility] [address] [id number] [address] [place] [address] Jun, [facility] [address] [place] [address] May, [facility] [address] [id number] [address] [place] [address] Apr, [facility] [address] [facility] [id number] [address] [place] [address] Apr, Attention deficit hyperactiv ity disorder F90.9 ; Major depression F32.9 and Anxiety disorder, unspecified F41.9 [facility] [address] [facility] [id number] [address] [place] [address] Mar, [facility] [address] [facility] [id number] [address] [place] [address] Mar, [facility] [address] [facility] [id number] [address] [place] [address] Feb, [facility] [address] [id number] [address] [place] [address] Feb, ADHD (attention deficit hype ractivity disorder) 314.01 ; Major depressive disorder, recurrent episode, moderate 296.32 and Anxiety state, unspecified 300.00 [facility] [address] [id number] [address] [place] [address] Jan, [facility] [address] [id number] [address] [place] [address] Dec, [facility] [address] [facility] [id number] [address] [place] [address] Nov, [facility] [address] [id number] [address] [place] [address] October, [facility] [address] [facility] [id number] [address] [place] [address] October, Anxiety state, unspecified 3 00.00 ; Attention deficit disorder of childhood with hyperactivity 314.01 and Major depressive disorder, recurrent episode, moderate 296.32 [facility] [address] [id number] [address] [place] [address] Sep, [facility] [place] [facility] [address] [id number] [address] [place] [address], [place] [address] Sep, [facility] [address] [id number] [address] [place] [address], [place] [address] Aug, [facility] [address] [id number] [address] [place] [address], [place] [address] Aug, [facility] [address] [id number] [address] [place] [address], [place] [address] Jul, [facility] [address] [id number] [address] [place] [address], [place] [address] Jul, [facility] [address] [id number] [address] [place] [address], [place] [address] October, [facility] [address] [id number] [address] [place] [address], [place] [address] October, [facility] [address] [id number] [address] [place] [address], [place] [address] October, [facility] [address] [id number] [address] [place] [address], [place] [address] October, [facility] [address] [id number] [address] [place] [address], [place] [address] October, [facility] [address] [id number] [address] [place] [address], [place] [address] Sep, [facility] [address] [id number] [address] [place] [address], [place] [address] Sep, [facility] [address] [id number] [address] [place] [address], [place] [address] Sep, [facility] [address] [id number] [address] [place] [address], [place] [address] Sep, [facility] [address] [id number] [address] [place] [address], [place] [address] Dec, [facility] [address] [id number] [address] [place] [address] Dec, [facility] [address] [id number] [address] [place] [address], [place] [address] Nov, [facility] [address] [id number] [address] [place] [address], [place] [address] Nov, [facility] [address] [id number] [address] [place] [address], [place] [address] Nov, [facility] [address] [id number] [address] [place] [address] Nov, [facility] [address] [id number] [address] [place] [address], [place] [address] Jul, [facility] [address] [id number] [address] [place] [address], [place] [address] Jul, [facility] [address] [id number] [address] [place] [address], [place] [address] Jul, [facility] [address] [id number] [address] [place] [address], [place] [address] Jul, [facility] [address] [id number] [address] [place] [address], [place] [address] 17 Mar, 2011 [facility] [address] [id number] [address] [place] [address] 14 Mar, 2011 [facility] [address] [id number] [address] [place] [address] 14 Mar, 2011 [facility] [address] [id number] [address] [place] [address] 11 Mar, 2011 [facility] [address] [id number] [address] [place] [address] 11 Mar, 2011 [facility] [address] [id number] [address] [place] [address] 14 May, 2010 [facility] [place] [facility] [address] [id number] [address] [place] [address] 14 May, 2010 [facility] [place] [facility] [address] [id number] [address] [place] [address] May, [facility] [address] [id number] [address] [place] [address] Mar, [facility] [address] [facility] [id number] [address] [place] [address] Mar, [facility] [address] [facility] [id number] [address] [place] [address] May, IMMUNIZATIONS No Known Immunizations SOCIAL HISTORY Never Assessed REASON FOR VISIT f/travis Cheek MA, Kerry signed contract PLAN OF CARE Activity Details Follow Up 3 Months Reason: VITAL SIGNS Height 62 in 2017-01-02 Weight 261.2 lbs 2017-01-02 Heart Rate 84 bpm 2017-01-02 Respiratory Rate 18 2017-01-02 BMI 47.77 kg/m2 2017-01-02 Blood pressure systolic 138 mmHg 2017-01-02 Blood pressure diastolic 76 mmHg 2017-01-02 MEDICATIONS Medication Instructions Dosage Frequency Start Date End Date Duration S tatus Klonopin 1 MG Orally as needed once a day 1 tablet 24h Aug, 30 days Active Adderall 20 mg Orally one tablet in am and one half tablet at noon 1 tablet Dec, 30 days Active Cymbalta 30 MG Orally Once a day 1 capsule 24h 30 da ys Active RESULTS No Results PROCEDURES No Known [...]
--- OUTSIDE RECORDS SUMMARY | 2019-12-03 14:10 | XMS REPORT ---
Author Author Sirisha MATHEW Organization [facility] Address Unknown Care Team Providers Care Multisensor Intelligence Officer Name Role Phone DARSHAN MATHEW Unavailable PROBLEMS Type Condition ICD9-CM Code JMM00-LP Code Onset Dates Condition S tatus SNOMED Code Problem Cough 786.2 Active 42352198 Problem Family history of diabetes mellitus Z83.3 Active 879284594 Problem Family history of early CAD Z82.49 Ac tive 938555392 Problem Finger fracture S62.609A Active 1817 1007 Problem Special screening examination, human papillomavirus [HPV] V73.81 Active 332695485 Problem Establishing care with new doctor, encounter for Z 71.89 Active 768420327 Problem Screening for malignant neoplasm of the cervix V76.2 Active 849881399 Assessment Anxiety disorder, unspecified F41.9 21 Sep, 2 016 Active 263331914 Problem Ganglion cyst of left foot M67.472 Act olivia 340664348 Problem Obesity E66.9 Active 147306971 Problem Fatigue R53.83 Active 66095773 Problem Weakness R53.1 Active 65674530 Problem STATE HEP A (ADULT) DX V05.3 Active 372799791 Problem YELLOW FEVER DX V04.4 Active 1705 33351 Problem Unspecified breast screening V76.10 A ctive 756587598 Problem Screening examination for venereal disease V74.5 Active 884909696 Problem Major depressive disorder, recurrent episode, moderate 296 .32 Active 89377957 Problem Attention deficit disorder of childhood with hyperactivity 314.01 Active 225075490 Assessment Attention deficit hyperactivity disorder F90.9 Feb, Active 056685413 Problem MENINGOCOCCAL DX V03.89 Active Problem Anxiety state, unspecified 300.00 Act olivia 631775987 Assessment Major depression F32.9 Feb, Active 545400279 Problem Other specified counseling V65.49 Act olivia 814784754 Problem Acute serous otitis media 381.01 Acti ve 380637528 ALLERGIES Unknown Allergies SOCIAL HISTORY No smoking Hx information available PLAN OF CARE VITAL SIGNS Height 62 in 2016-03-02 Weight 252.6 lbs 2016-03-02 Heart Rate 72 bpm 2016-03-02 Respiratory Rate 20 2016-03-02 BMI 46.20 kg/m2 2016-03-02 Blood pressure systolic 128 mmHg 2016-03-02 Blood pressure diastolic 70 mmHg 2016-03-02 MEDICATIONS Medication Instructions Dosage Frequency Start Date End Date Duration S tatus Klonopin 1 MG Orally Once a day PRN for ANXIETY 0.5-1 Tablet Aug, Active Cymbalta 60 MG Orally Once a day 1 capsule 24h Apr, 30 days Active Ibuprofen 200 MG Orally every 6 hrs 1 tablet as needed 6h Active Cymbalta 30 MG Orally Once a day 1 capsule 24h Aug, 30 days Active RESULTS No Results PROCEDURES Procedure Date Ordered Related Diagnosis Body Site MH Office Visit, Est Pt., Level 3 Mar 02, 2016 IMMUNIZATIONS No Known Immunizations
--- OUTSIDE RECORDS SUMMARY | 2019-12-03 14:10 | XMS REPORT ---
Author Author Sirisha MATHEW Organization [facility] Address Unknown Care Team Providers Care Dental Mold Maker Name Role Phone DARSHAN MATHEW Unavailable PROBLEMS Type Condition ICD9-CM Code VRO47-SE Code Onset Dates Condition S tatus SNOMED Code Problem Obesity E66.9 Active 166066569 Problem Family history of early CAD Z82.49 Ac tive 552935899 Problem Fatigue R53.83 Active 97693276 Problem Establishing care with new doctor, encounter for Z 71.89 Active 728369334 Problem Anxiety disorder, unspecified F41.9 Active 054499769 Problem Attention deficit hyperactivity disorder F90.9 Active 841128860 Problem Weakness R53.1 Active 80298746 Problem Family history of diabetes mellitus Z83.3 Active 119020226 Problem Finger fracture S62.609A Active 1817 1007 Problem Ganglion cyst of left foot M67.472 Act olivia 987654495 ALLERGIES Substance Reaction Event Type Date Status N.K.D.A. Unknown Non Drug Allergy Jun, Unknown SOCIAL HISTORY No smoking Hx information available PLAN OF CARE Activity Details Follow Up 2 Months Reason: VITAL SIGNS Height 62 in 2016-06-15 Weight 267.3 lbs 2016-06-15 Heart Rate 80 bpm 2016-06-15 Respiratory Rate 20 2016-06-15 BMI 48.88 kg/m2 2016-06-15 Blood pressure systolic 132 mmHg 2016-06-15 Blood pressure diastolic 86 mmHg 2016-06-15 MEDICATIONS Medication Instructions Dosage Frequency Start Date End Date Duration S tatus Cymbalta 30 MG Orally Once a day 1 capsule 24h Aug, 30 days Active Klonopin 1 MG Orally as needed once a day 1 tablet 24h Aug, 30 days Active Cymbalta 60 MG Orally Once a day 1 capsule 24h Apr, 30 days Active Adderall 20 MG Orally one tablet in am and one half tablet at noon 1 tablet Jun, 30 days Active RESULTS No Results PROCEDURES Procedure Date Ordered Related Diagnosis Body Site MH Office Visit, Est Pt., Level 3 Jun 15, 2016 IMMUNIZATIONS No Known Immunizations
--- OUTSIDE RECORDS SUMMARY | 2019-12-03 14:10 | XMS REPORT ---
Author Author Sirisha SHABAZZ Organization [facility] Address [address] [place] [address] Care Team Providers Care Laboratory Chemist Name Role Phone HARIKA MARIANELA Unavailable PROBLEMS Type Condition ICD9-CM Code FXG67-OL Code Onset Dates Condition S tatus SNOMED Code Problem Family history of early CAD Z82.49 Ac tive 574660688 Problem Weakness R53.1 Active 03654030 Problem Family history of diabetes mellitus Z83.3 Active 017013363 Problem Establishing care with new doctor, encounter for Z 71.89 Active 262074620 Problem Obesity E66.9 Active 793100182 Problem Fatigue R53.83 Active 51168174 Problem Menstrual migraine without status migrainosus, n ot intractable G43.829 Active 80733945 Problem Major depressive disorder, recurrent episode wit h anxious distress F33.9 Active 05435271 Problem Finger fracture S62.609A Active 1817 1007 Problem Ganglion cyst of left foot M67.472 Act olivia 300524692 Problem Attention deficit hyperactivity disorder F90.9 Active 263253776 Problem Anxiety disorder, unspecified F41.9 Active 357452094 ALLERGIES No Information ENCOUNTERS Encounter Location Date Diagnosis [facility] [address] [id number] [address] [place] [id number] 18 Nov, 2017 Encounter for screening mamm ogram for breast cancer Z12.31 ; Menstrual migraine without status migrainosus, not intractable G43.829 and BMI 50.0-59.9, adult Z68.43 [facility] [address] [facility] [id number] [address] [place] [id number] 16 Jun, 2017 Attention deficit hyperactiv ity disorder F90.9 [facility] [address] [facility] [id number] [address] [place] [id number] 02 Jun, 2017 Attention deficit hyperactiv ity disorder F90.9 ; Major depressive disorder, recurrent episode with anxious distress F33.9 and BMI 45.0-49.9, adult Z68.42 [facility] [address] [id number] [address] [place] [phone] May, Major depressive disorder, r ecurrent episode with anxious distress F33.9 [facility] [address] [id number] [address] [place] [id number] Apr, Major depressive disorder, r ecurrent episode with anxious distress F33.9 and Attention deficit hyperactivity disorder F90.9 [place] [address] [id number] [address] [place] [id number] Apr, [place] [address] [id number] [address] [place] [phone] Mar, Attention deficit hyperactiv ity disorder F90.9 and Major depressive disorder, recurrent episode with anxious distress F33.9 [place] [address] [id number] [address] [place] [id number] Jan, [place] [address] [id number] [address] [place] [address] Dec, Anxiety disorder, unspecifie d F41.9 ; Attention deficit hyperactivity disorder F90.9 and Major depressive disorder, recurrent episode with anxious distress F33.9 [place] [address] [id number] [address] [place] [phone] Dec, Acute midline low back pain without sciatica M54.5 [place] [address] [id number] [address] [place] [address] Dec, [facility] [address] [id number] [address] [place] [id number] Dec, Pelvic pain R10.2 and Acute midline low back pain without sciatica M54.5 [facility] [address] [id number] [address] [place] [id number] Nov, [facility] [address] [id number] [address] [place] [phone] October, [facility] [address] [id number] [address] [place] [address] October, [facility] [address] [facility] [id number] [address] [place] [id number] Sep, Well woman exam Z01.419 and Cervical cancer screening Z12.4 [facility] [address] [id number] [address] [place] [address] Sep, [facility] [address] [facility] [id number] [address] [place] [address] Sep, Plantar fasciitis, right M72 .2 ; Left foot pain M79.672 and Trigger point of left side of body M79.1 [facility] [address] [facility] [id number] [address] [place] [address] Aug, [place] [address] [id number] [address] [place] [id number] Aug, Anxiety disorder, unspecifie d F41.9 ; Attention deficit hyperactivity disorder F90.9 and Major depressive disorder, recurrent episode with anxious distress F33.9 [place] [address] [facility] [id number] [address] [place] [id number] Jul, [facility] [address] [facility] [id number] [address] [place] [address] Jun, Attention deficit disorder o f adult with hyperactivity F90.9 and Major depressive disorder, recurrent episode with anxious distress F33.9 [facility] [address] [id number] [address] [place] [phone] Feb, Anxiety disorder, unspecifie d F41.9 ; Major depression F32.9 and Attention deficit hyperactivity disorder F90.9 [facility] [address] [facility] [id number] [address] [place] [phone] Jan, [facility] [address] [facility] [id number] [address] [place] [phone] Dec, [facility] [address] [address] [id number] [address] [place] [address] Nov, [facility] [address] [address] October, Fatigue, unspecified type R5 3.83 [facility] [address] [id number] October, [facility] [address] [address] October, Finger fracture S62.609A [place] [address] [address] Sep, [place] [address] [address] Sep, Finger fracture S62.609A [place] [address] [address] Sep, [place] [address] [address] Sep, [place] [address] [address] Aug, Establishing care with chi khan, encounter for Z71.89 ; Fatigue R53.83 ; Weakness R53.1 ; Ganglion cyst of left foot M67.472 ; Obesity E66.9 ; Family history of diabetes mellitus Z83.3 and Family history of early CAD Z82.49 [facility] [address] [address] [id number] [place] [phone] 16 Aug, 2015 [facility] [address] [address] Aug, Fatigue R53.83 [place] [address] [address] Aug, Anxiety disorder, unspecifie d F41.9 ; Major depression F32.9 and Attention deficit hyperactivity disorder F90.9 [place] [address] [id number] [address] [place] [id number] Jul, [facility] [address] [facility] [id number] [address] [place] [phone] Jun, [facility] [address] [facility] [id number] [address] [place] [phone] May, [facility] [address] [facility] [id number] [address] [place] [phone] Apr, [facility] [address] [facility] [id number] [address] [place] [phone] Apr, Attention deficit hyperactiv ity disorder F90.9 ; Major depression F32.9 and Anxiety disorder, unspecified F41.9 [facility] [address] [facility] [id number] [address] [place] [id number] Mar, [facility] [address] [id number] [address] [place] [id number] Mar, [facility] [address] [facility] [id number] [address] [place] [id number] Feb, [facility] [address] [facility] [id number] [address] [place] [address] Feb, ADHD (attention deficit hype ractivity disorder) 314.01 ; Major depressive disorder, recurrent episode, moderate 296.32 and Anxiety state, unspecified 300.00 [facility] [address] [facility] [id number] [address] [place] [id number] Jan, [facility] [address] [facility] [id number] [address] [place] [phone] Dec, [facility] [address] [facility] [id number] [address] [place] [address] Nov, [facility] [address] [facility] [id number] [address] [place] [id number] October, [facility] [address] [facility] [id number] [address] [place] [address] October, Anxiety state, unspecified 3 00.00 ; Attention deficit disorder of childhood with hyperactivity 314.01 and Major depressive disorder, recurrent episode, moderate 296.32 [facility] [address] [id number] [address] [place] [id number] 14 Sep, 2014 [facility] [address] [id number] [address] [place] [id number] Sep, [facility] [address] [id number] [address] [place] [phone] Aug, [facility] [address] [id number] [address] [place] [phone] Aug, [facility] [address] [id number] [address] [place] [address] Jul, [facility] [address] [id number] [address] [place] [address] Jul, [facility] [address] [id number] [address] [place] [phone] October, [facility] [address] [id number] [address] [place] [phone] October, [facility] [address] [id number] [address] [place] [phone] October, [facility] [address] [id number] [address] [place] [phone] October, [facility] [address] [id number] [address] [place] [phone] October, [facility] [address] [id number] [address] [place] [id number] Sep, [facility] [address] [id number] [address] [place] [phone] Sep, [facility] [address] [id number] [address] [place] [phone] Sep, [facility] [address] [id number] [address] [place] [address], [place] [address] Sep, [facility] [address] [id number] [address] [place] [address], [place] [address] Dec, [facility] [address] [id number] [address] [place] [address], [place] [address] Dec, [facility] [address] [id number] [address] [place] [address], [place] [address] Nov, [facility] [address] [id number] [address] [place] [address], [place] [address] Nov, [facility] [address] [id number] [address] [place] [address], [place] [address] Nov, [facility] [address] [id number] [address] [place] [address], [place] [address] Nov, [facility] [address] [id number] [address] [place] [address], [place] [address] Jul, [facility] [address] [id number] [address] [place] [address], [place] [address] Jul, [facility] [address] [id number] [address] [place] [address], [place] [address] Jul, [facility] [address] [id number] [address] [place] [address], [place] [address] Jul, [facility] [address] [id number] [address] [place] [address], [place] [address] Mar, [facility] [address] [id number] [address] [place] [address], [place] [address] 14 Mar, 2011 [facility] [address] [id number] [address] [place] [address], [place] [address] Mar, [facility] [address] [id number] [address] [place] [address], [place] [address] Mar, [facility] [address] [id number] [address] [place] [address], [place] [address] Mar, [facility] [address] [id number] [address] [place] [phone] May, [facility] [address] [id number] [address] [place] [address] May, [facility] [address] [id number] [address] [place] [address] May, [facility] [address] [id number] [address] [place] [address] Mar, [facility] [address] [id number] [address] [place] [address] Mar, [facility] [address] [id number] [address] [place] [address] May, IMMUNIZATIONS No Known Immunizations SOCIAL HISTORY Never Assessed REASON FOR VISIT luis/Kristie SHOEMAKER PLAN OF CARE Activity Details Follow Up 4 Months Reason: VITAL SIGNS Height 62 in 2017-06-13 Weight 255.6 lbs 2017-06-13 Heart Rate 78 bpm 2017-06-13 Respiratory Rate 18 2017-06-13 BMI 46.74 kg/m2 2017-06-13 Blood pressure systolic 124 mmHg 2017-06-13 Blood pressure diastolic 82 mmHg 2017-06-13 MEDICATIONS Medication Instructions Dosage Frequency Start Date End Date Duration S tatus Cymbalta 60 MG Orally every morning 1 capsule 30 days Active Klonopin Active ibuprofen 200 mg Oral PRN 3 tabes Active Adderall 20 mg Orally one tablet in am and one half tablet at noon 1 tablet May, 28 days Active HydrOXYzine HCl 10 MG Orally daily 1 tablet as needed 24h Mar 30 days Active RESULTS No Results PROCEDURES [...]
--- OUTSIDE RECORDS SUMMARY | 2019-12-03 14:10 | XMS REPORT ---
Author Author Sirisha BURT [facility] eClinical[employer] Address Unknown Phone Unavailable Care Team Providers Care Surgical Instrument Maker Name Role Phone RAMSES BURT CP Unavailable Allergies, Adverse Reactions, Alerts Substance [...] cervix V76.2 Active Problem Fatigue R53.83 Active Assessment Finger fracture S62.609A Active Problem Finger fracture S62.609A Active Problem [...] Anxiety state, unspecified 300.00 A ctive Medications Medication Code System Code Instructions Start Date End Date Status Dosage Hydrocodone-Acetaminophen [facility] [address]-04 5-325 MG Orally every 6 hrs 1 tablet as needed Ibuprofen [facility] [address]-53 200 MG Orally every 6 hrs 1 tablet as needed Bactrim [facility] [address]-16 400-80 MG Orally Once a day 2 tablets Procedures Procedure Coding System Code Date Office Visit, Est Pt., Level 3 CPT-4 47307 A pri 2015 Vital Signs Date/Time: September 21, 2015 Temperature 98.8 F Weight 257.0 lbs Height 62 in BMI 47.00 Index Blood Pressure Diastolic 85 mmHg Blood Pressure Systolic 124 mmHg Cardiac Monitoring Heart Rate 76 bpm Results No Known Results Summary Purpose eClinicalWorks Submission
--- OUTSIDE RECORDS SUMMARY | 2019-12-03 14:11 | XMS REPORT ---
Author Author Sirisha Weinstein Organization [facility] Address Unknown Care Team Providers Care Roller Machine Operator Name Role Phone DARSHAN Weinstein Unavailable PROBLEMS Type Condition ICD9-CM Code [id number] Code Onset Dates Condition S tatus SNOMED Code Problem Fatigue R53.83 Active 34298602 Problem Family history of diabetes mellitus Z83.3 Active 202649765 Problem Family history of early CAD Z82.49 Ac tive 337058757 Problem Establishing care with new doctor, encounter for Z 71.89 Active 309319031 Problem Obesity E66.9 Active 678967544 Problem Major depressive disorder, recurrent episode wit h anxious distress F33.9 Active 58918048 Problem Attention deficit hyperactivity disorder F90.9 Active 374971395 Problem Ganglion cyst of left foot M67.472 Act olivia 458285221 Problem Weakness R53.1 Active 03491931 Problem Anxiety disorder, unspecified F41.9 Active 594037649 Problem Finger fracture S62.609A Active 1817 1007 ALLERGIES No Information SOCIAL HISTORY Never Assessed PLAN OF CARE VITAL SIGNS MEDICATIONS Medication Instructions Dosage Frequency Start Date End Date Duration S tatus Adderall 20 mg Orally one tablet in am and one half tablet at noon 1 tablet October, 28 days Active RESULTS No Results PROCEDURES [...]
--- OUTSIDE RECORDS SUMMARY | 2019-12-03 14:11 | XMS REPORT ---
Author Author Sirisha Weinstein Organization [facility] Address Unknown Care Team Providers Care Executive Director Of Marketing Name Role Phone DARSHAN Weinstein Unavailable PROBLEMS Type Condition ICD9-CM Code SDC65-RM Code Onset Dates Condition S tatus SNOMED Code Problem Obesity E66.9 Active 938773039 Problem Family history of early CAD Z82.49 Ac tive 236557900 Problem Fatigue R53.83 Active 39342302 Problem Establishing care with new doctor, encounter for Z 71.89 Active 173676834 Problem Anxiety disorder, unspecified F41.9 Active 623493111 Problem Attention deficit hyperactivity disorder F90.9 Active 047367043 Problem Weakness R53.1 Active 55545258 Problem Family history of diabetes mellitus Z83.3 Active 438574328 Problem Finger fracture S62.609A Active 1817 1007 Problem Ganglion cyst of left foot M67.472 Act olivia 841460756 ALLERGIES No Information SOCIAL HISTORY Never Assessed PLAN OF CARE VITAL SIGNS MEDICATIONS Medication Instructions Dosage Frequency Start Date End Date Duration S tatus Adderall 20 mg Orally one tablet in am and one half tablet at noon 1 tablet Jul, 28 days Active RESULTS No Results PROCEDURES [...]
--- OUTSIDE RECORDS SUMMARY | 2019-12-03 14:11 | XMS REPORT ---
Author Author Sirisha MATHEW [facility] eClinicalWorks Address Unknown Phone Unavailable Care Team Providers Care Hat Blocking Operator Name Role Phone DARSHAN MATHEW CP Unavailable Allergies, Adverse Reactions, Alerts Substance Reaction Event Type N.K.D.A. Info Not Available Non Drug Allergy Problems Problem Type Condition ICD-9 Code Onset Dates Condition Statu s Problem [...] disorder, recurrent episode, moderate 296.32 Active Assessment ADHD (attention deficit hyperactivity disorder) 314.01 Active Problem Screening for malignant neoplasm of the cervix V76.2 Active Assessment Anxiety state, unspecified 300.00 A ctive Problem Special screening examination, human papillomavirus [H PV] V73.81 Active Assessment Major depressive disorder, recurrent episode, moderate 296.32 Active Problem Unspecified breast screening V76.10 Active Medications Medication Code System Code Instructions Start Date End Date Status Dosage Cymbalta [facility] [address]-73 30 MG Orally Once a day October 15, 2014 1 capsule direct relief Klonopin [facility] [address]-82 1 MG Orally Once a day PRN for ANXIETY August 26, 2014 0.5-1 Tablet Adderall [facility] [address]-01 10 MG Orally twice a day Feb 25, 2015 1/2 tablet Procedures Procedure Coding System Code Date Office Visit, Est Pt., Level 3 CPT-4 59614 S ept 2014 Vital Signs Date/Time: Feb 25, 2015 Temperature 98.7 F Weight 246.3 lbs Height 62 in BMI 45.04 Index Blood Pressure Diastolic 80 mmHg Blood Pressure Systolic 118 mmHg Cardiac Monitoring Heart Rate 68 bpm Results No Known Results Summary Purpose eClinicalWorks Submission
--- OUTSIDE RECORDS SUMMARY | 2019-12-03 14:11 | XMS REPORT ---
Author Author Sirisha BURT Organization [employer] Address Unknown Phone Unavailable Care Team Providers Care Human Resources Officer Name Role Phone RAMSES BURT CP Unavailable Allergies No Known Allergies Problems [...]
--- OUTSIDE RECORDS SUMMARY | 2019-12-03 14:11 | XMS REPORT ---
Author Author Sirisha MATHEW Organization [employer] Address Unknown Phone Unavailable Care Team Providers Care Side Panel Hanger Name Role Phone DARSHAN MATHEW Unavailable Allergies [...] Start Date End Date Status Dosage Adderall [facility] [address]-58 10 mg Orally in am , 1/2 ta blet in afternoon August 12, 2015 1 tablet Results No Known Results Summary Purpose eClinicalWorks Submission
--- OUTSIDE RECORDS SUMMARY | 2019-12-03 14:11 | XMS REPORT ---
Author Author Sirisha BURT Organization [facility] Address [address] [place] [address] Care Team Providers Care Media Producer Name Role Phone RAMSES BURT Unavailable PROBLEMS Type Condition ICD9-CM Code GHW78-GU Code Onset Dates Condition S tatus SNOMED Code Problem Fatigue R53.83 Active 80322929 Problem Family history of diabetes mellitus Z83.3 Active 518088792 Problem Family history of early CAD Z82.49 Ac tive 973947449 Problem Establishing care with new doctor, encounter for Z 71.89 Active 370690830 Problem Obesity E66.9 Active 543045751 Problem Major depressive disorder, recurrent episode wit h anxious distress F33.9 Active 51697001 Problem Attention deficit hyperactivity disorder F90.9 Active 942396115 Problem Ganglion cyst of left foot M67.472 Act olivia 081536298 Problem Weakness R53.1 Active 89758271 Problem Anxiety disorder, unspecified F41.9 Active 129612592 Problem Finger fracture S62.609A Active 1817 1007 ALLERGIES No Known Allergies ENCOUNTERS Encounter Location Date Diagnosis [place] [id number] [facility] [id number] [address] [place] [address] October, [facility] [address] [facility] [id number] [address] [place] [address] Jun, Attention deficit hyperactiv ity disorder F90.9 [facility] [address] [facility] [id number] [address] [place] [address] Jun, Attention deficit hyperactiv ity disorder F90.9 ; Major depressive disorder, recurrent episode with anxious distress F33.9 and BMI 45.0-49.9, adult Z68.42 [facility] [address] [facility] [id number] [address] [place] [address] May, Major depressive disorder, r ecurrent episode with anxious distress F33.9 [facility] [address] [id number] [address] [place] [address] Apr, Major depressive disorder, r ecurrent episode with anxious distress F33.9 and Attention deficit hyperactivity disorder F90.9 [facility] [address] [id number] [address] [place] [address] Apr, [facility] [address] [id number] [address] [place] [address] Mar, Attention deficit hyperactiv ity disorder F90.9 and Major depressive disorder, recurrent episode with anxious distress F33.9 [facility] [address] [id number] [address] [place] [address] Jan, [facility] [address] [id number] [address] [place] [address] Dec, Anxiety disorder, unspecifie d F41.9 ; Attention deficit hyperactivity disorder F90.9 and Major depressive disorder, recurrent episode with anxious distress F33.9 [facility] [address] [id number] [address] [place] [address] Dec, Acute midline low back pain without sciatica M54.5 [facility] [address] [id number] [address] [place] [phone] Dec, [facility] [address] [id number] [address] [place] [address] Dec, Pelvic pain R10.2 and Acute midline low back pain without sciatica M54.5 [facility] [address] [id number] [address] [place] [address] Nov, [facility] [address] [id number] [address] [place] [address] October, [facility] [address] [id number] [address] [place] [address] October, [facility] [address] [id number] [address] [place] [address] Sep, Well woman exam Z01.419 and Cervical cancer screening Z12.4 [facility] [address] [facility] [id number] [address] [place] [address] Sep, [facility] [address] [facility] [id number] [address] [place] [address] Sep, Plantar fasciitis, right M72 .2 ; Left foot pain M79.672 and Trigger point of left side of body M79.1 [place] [address] [facility] [id number] [address] [place] [address] Aug, [place] [address] [facility] [id number] [address] [place] [address] Aug, Anxiety disorder, unspecifie d F41.9 ; Attention deficit hyperactivity disorder F90.9 and Major depressive disorder, recurrent episode with anxious distress F33.9 [place] [address] [place] [id number] [address] [place] [address] Jul, [place] [address] [place] [id number] [address] [place] [address] Jun, Attention deficit disorder o f adult with hyperactivity F90.9 and Major depressive disorder, recurrent episode with anxious distress F33.9 [place] [address] [facility] [id number] [address] [place] [address] Feb, Anxiety disorder, unspecifie d F41.9 ; Major depression F32.9 and Attention deficit hyperactivity disorder F90.9 [place] [address] [facility] [id number] [address] [place] [address] Jan, [place] [address] [facility] [id number] [address] [place] [address] Dec, [place] [address] [facility] [id number] [address] [place] [address] Nov, [place] [address] [facility] [id number] [address] [place] [phone] October, Fatigue, unspecified type R5 3.83 [facility] [address] [place] [id number] [address] [place] [address] October, [facility] [address] [address] October, Finger fracture S62.609A [facility] [address] [address] Sep, [facility] [address] [address] Sep, Finger fracture S62.609A [facility] [address] [address] Sep, [place] [address] [address] Sep, [place] [address] [address] Aug, Establishing care with [facility], encounter for Z71.89 ; Fatigue R53.83 ; Weakness R53.1 ; Ganglion cyst of left foot M67.472 ; Obesity E66.9 ; Family history of diabetes mellitus Z83.3 and Family history of early CAD Z82.49 [place] [address] [address] Aug, [facility] [address] [place] [id number] [address] [place] [address] Aug, Fatigue R53.83 [facility] [address] [address] Aug, Anxiety disorder, unspecifie d F41.9 ; Major depression F32.9 and Attention deficit hyperactivity disorder F90.9 [facility] [address] [place] [id number] [address] [place] [address] Jul, [facility] [address] [address] Jun, [facility] [address] [facility] [id number] [address] [place] [address] May, [facility] [address] [facility] [id number] [address] [place] [address] Apr, [facility] [address] [facility] [id number] [address] [place] [address] Apr, Attention deficit hyperactiv ity disorder F90.9 ; Major depression F32.9 and Anxiety disorder, unspecified F41.9 [facility] [address] [facility] [id number] [address] [place] [address] Mar, [facility] [address] [facility] [id number] [address] [place] [address] Mar, [facility] [address] [facility] [id number] [address] [place] [address] Feb, [facility] [address] [facility] [id number] [address] [place] [address] Feb, ADHD (attention deficit hype ractivity disorder) 314.01 ; Major depressive disorder, recurrent episode, moderate 296.32 and Anxiety state, unspecified 300.00 [facility] [address] [facility] [id number] [address] [place] [phone] Jan, [facility] [address] [facility] [id number] [address] [place] [address] Dec, [facility] [address] [facility] [id number] [address] [place] [address] Nov, [facility] [address] [facility] [id number] [address] [place] [address] October, [facility] [address] [facility] [id number] [address] [place] [address] October, Anxiety state, unspecified 3 00.00 ; Attention deficit disorder of childhood with hyperactivity 314.01 and Major depressive disorder, recurrent episode, moderate 296.32 [facility] [address] [facility] [id number] [address] [place] [address] Sep, [facility] [address] [id number] [facility] [place] [address] Sep, [facility] [address] [id number] [facility] [place] [address] Aug, [facility] [address] [id number] [facility] [place] [address] Aug, [facility] [address] [id number] [address] [place] [address], [place] [address] Jul, [facility] [address] [id number] [address] [place] [address], [place] [address] Jul, [facility] [address] [id number] [address] [place] [address], [place] [address] October, [facility] [address] [id number] [address] [place] [address], [place] [address] October, [facility] [address] [id number] [address] [place] [address], [place] [address] October, [facility] [address] [id number] [address] [place] [address], [place] [address] October, [facility] [address] [id number] [address] [place] [address], [place] [address] October, [facility] [address] [id number] [address] [place] [address], [place] [address] Sep, [facility] [address] [id number] [address] [place] [address], [place] [address] Sep, [facility] [address] [id number] [address] [place] [address], [place] [address] Sep, [facility] [address] [id number] [address] [place] [address], [place] [address] Sep, [facility] [address] [id number] [address] [place] [address], [place] [address] Dec, [facility] [address] [id number] [address] [place] [address], [place] [address] Dec, [facility] [address] [id number] [address] [place] [address], [place] [address] Nov, [facility] [address] [id number] [address] [place] [address], [place] [address] Nov, [facility] [address] [id number] [address] [place] [address], [place] [address] Nov, [facility] [address] [id number] [address] [place] [address], [place] [address] Nov, [facility] [address] [id number] [address] [place] [address], [place] [address] Jul, [facility] [address] [id number] [address] [place] [address], [place] [address] Jul, [facility] [address] [id number] [address] [place] [address], [place] [address] Jul, [facility] [address] [id number] [address] [place] [address], [place] [address] Jul, [facility] [address] [id number] [address] [place] [address], [place] [address] 17 Mar, 2011 [facility] [address] [id number] [address] [place] [address], [place] [address] 14 Mar, 2011 [facility] [address] [id number] [address] [place] [address], [place] [address] 14 Mar, 2011 [facility] [address] [id number] [address] [place] [address], [place] [address] 11 Mar, 2011 [facility] [address] [id number] [address] [place] [address], [place] [address] 11 Mar, 2011 [facility] [address] [id number] [address] [place] [address], [place] [address] 14 May, 2010 [facility] [address] [id number] [address] [place] [address], [place] [address] May, [facility] [address] [facility] [id number] [address] [place] [address] May, [facility] [address] [facility] [id number] [address] [place] [address] Mar, [facility] [address] [facility] [id number] [address] [place] [address] Mar, [facility] [address] [facility] [id number] [address] [place] [address] May, IMMUNIZATIONS No Known Immunizations SOCIAL HISTORY Never Assessed REASON FOR VISIT Hip pain f/u--[id number] PLAN OF CARE Activity Details Follow Up prn Reason: VITAL SIGNS Height 62 in 2016-12-26 Weight 263.0 lbs 2016-12-26 Temperature 98.7 degrees Fahrenheit 2016-12-26 Heart Rate 80 bpm 2016-12-26 Respiratory Rate 18 2016-12-26 BMI 48.10 kg/m2 2016-12-26 Blood pressure systolic 124 mmHg 2016-12-26 Blood pressure diastolic 78 mmHg 2016-12-26 MEDICATIONS Medication Instructions Dosage Frequency Start Date End Date Duration S tatus Tramadol HCl 50 mg Orally every 6 hrs 1 tablet as needed 6h Dec, Active Klonopin 1 MG Orally as needed once a day 1 tablet 24h Aug, 30 days Active Adderall 20 mg Orally one tablet in am and one half tablet at noon 1 tablet October, 28 days Active Cymbalta 30 MG TAKE ONE CAPSULE BY MOUTH ONCE DAILY. 30 Active RESULTS Name Result Date Reference Range MRI : Pelvis w/o Contrast 2016-12-30 PROCEDURES No Known procedures INSTRUCTIONS MEDICATIONS ADMINISTERED No Known Medications MEDICAL (GENERAL) HISTORY Type Description Date Medical History ADD Medical History Depression Medical History High cholesterol Medical History Vitamin D deficiency Surgical History 1997 Surgical History Left ankle surgery Hospitalization History Stitches in right hand finger next t o pinky Hospitalization History Surgery
--- OUTSIDE RECORDS SUMMARY | 2019-12-03 14:11 | XMS REPORT | Continuity of Care Document ---
Demographics Preferred Language Unknown Marital Status Unknown Orthodoxy Affiliation Unknown Race Unknown Ethnic Group Unknown Author Organization Unknown Address Unknown Phone Unavailable Allergies Active Description Code Type Severity Reaction Onset Reported/Identified Relationship to Patient Clinical Status Yes No Known Drug Allergies [id number] Drug Allergy Unknown N/A 12/02/2019 Medications There is no data. Problems Date Dx Coded Attending Type Code Diagnosis Diagnosed By 05/11/1514 RAMSES BURT Ot M79.652 PAIN IN LEFT THIGH 12/25/2007 780.79 Mal aise And Fatigue 12/25/2007 V72.31 AD OPERATIONS SPECIALIST EXAM, ROUTINE 12/25/2007 RAMSES BURT APRN 780.79 Malaise And Fatigue 12/25/2007 RAMSES BURT APRN V72.31 AD OPERATIONS SPECIALIST EXAM, ROUTINE 12/25/2007 780.79 Mal aise And Fatigue 12/25/2007 V72.31 AD OPERATIONS SPECIALIST EXAM, ROUTINE 12/25/2007 NATHALIA HANNA DO K 780.79 Malaise And Fatigue 12/25/2007 CHRISTINA HANNA DOA K V72.31 AD OPERATIONS SPECIALIST EXAM, ROUTINE 12/25/2007 LIZ TAMAYO, ALIRIO R 780.79 Malaise And Fatigue 12/25/2007 LIZ CHILD CARE ASSOCIATE TEACHER, ALIRIO R V72.31 AD OPERATIONS SPECIALIST EXAM, ROUTINE 12/25/2007 DARSHAN RODRIGUEZ 780.79 Malaise And Fatigue 12/25/2007 DARSHAN RODRIGUEZ V72.31 AD OPERATIONS SPECIALIST EXAM, ROUTINE 12/25/2007 LIZ TAMAYO, ALIRIO R 780.79 Malaise And Fatigue 12/25/2007 LIZ TAMAYO, ALIRIO R V72.31 AD OPERATIONS SPECIALIST EXAM, ROUTINE 05/30/2008 462 Pharyn gitis Acute 05/30/2008 729.1 Myal thien And Myositis Unspecified 05/30/2008 786.07 Whe ezing 05/30/2008 RAMSES BURT APRN 462 Pharyngitis Acute 05/30/2008 RAMSES BURT APRN 729.1 Myalgia And Myositis Unspecified 05/30/2008 RAMSES BURT APRN 786.07 Wheezing 05/30/2008 462 Pharyn gitis Acute 05/30/2008 729.1 Myal thien And Myositis Unspecified 05/30/2008 786.07 Whe ezing 05/30/2008 NATHALIA HANNA DO K 462 Pharyngitis Acute 05/30/2008 CHRISTINA HANNA DOA K 729.1 Myalgia And Myositis Unspecified 05/30/2008 CHRISTINA HANNA DOA K 786.07 Wheezing 05/30/2008 LIZ CHILD CARE ASSOCIATE TEACHER ALIRIO R 4 62 Pharyngitis Acute 05/30/2008 LIZ XIAON, ALIRIO R 729.1 Myalgia And Myositis Unspecified 05/30/2008 LIZ TAMAYO ALIRIO R 786.07 Wheezing 05/30/2008 DARSHAN RODRIGUEZ 4 62 Pharyngitis Acute 05/30/2008 DARSHAN RODRIGUEZ 729.1 Myalgia And Myositis Unspecified 05/30/2008 DARSHAN RODRIGUEZ M 786.07 Wheezing 05/30/2008 LIZ TAMAYO ALIRIO R 4 62 Pharyngitis Acute 05/30/2008 LIZ TAMAYO, ALIRIO R 729.1 Myalgia And Myositis Unspecified 05/30/2008 LIZ TAMAYO ALIRIO R 786.07 Wheezing 07/10/2008 724.5 Backache 07/10/2008 RAMSES BURT APRN S 724.5 Backache 07/10/2008 724.5 Backache 07/10/2008 NATHALIA HANNA DO K 724.5 Backache 07/10/2008 LIZ TAMAYO ALIRIO R 724.5 Backache 07/10/2008 DARSHAN RODRIGUEZ M 724.5 Backache 07/10/2008 LIZ TAMAYO, ALIRIO R 724.5 Backache 06/10/2009 465.9 Uppe r Respiratory Infection 06/10/2009 RAMSES BURT APRN S 465.9 Upper Respiratory Infection 06/10/2009 465.9 Uppe r Respiratory Infection 06/10/2009 NATHALIA HANNA DO K 465.9 Upper Respiratory Infection 06/10/2009 LIZ TAMAYO ALIRIO R 465.9 Upper Respiratory Infection 06/10/2009 DARSHAN RODRIGUEZ M 465.9 Upper Respiratory Infection 06/10/2009 LIZ XIAON, ALIRIO R 465.9 Upper Respiratory Infection 03/24/2010 112.1 Cand idiasis Vaginal 03/24/2010 FAVIAN BURT APRNNDA S 112.1 Candidiasis Vaginal 03/24/2010 112.1 Cand idiasis Vaginal 03/24/2010 HANNA DO, NATHALIA K 112.1 Candidiasis Vaginal 03/24/2010 LIZ XIAON, ALIRIO R 112.1 Candidiasis Vaginal 03/24/2010 DARSHAN RODRIGUEZ M 112.1 Candidiasis Vaginal 03/24/2010 LIZ XIAON, ALIRIO R 112.1 Candidiasis Vaginal 05/13/2010 272.4 HYPE RLIPIDEMIA 05/13/2010 278.00 OBESITY 05/13/2010 311 DEPRESSION 05/13/2010 FAVIAN BUTR APRNNDA S 272.4 HYPERLIPIDEMIA 05/13/2010 FAVIAN BURT APRNNDA S 278.00 OBESITY 05/13/2010 FAVIAN BURT APRNNDA S 311 DEPRESSION 05/13/2010 272.4 HYPE RLIPIDEMIA 05/13/2010 278.00 OBESITY 05/13/2010 311 DEPRESSION 05/13/2010 HANNA DO, NATHALIA K 272.4 HYPERLIPIDEMIA 05/13/2010 HANNA DO, NATHALIA K 278.00 OBESITY 05/13/2010 HANNA DO, NATHALIA K 311 DEPRESSION 05/13/2010 LIZ XIAON, ALIRIO R 272.4 HYPERLIPIDEMIA 05/13/2010 LIZ XIAON, ALIRIO R 278.00 OBESITY 05/13/2010 LIZ XIAON, ALIRIO R 3 11 DEPRESSION 05/13/2010 DARSHAN RODRIGUEZ M 272.4 HYPERLIPIDEMIA 05/13/2010 DARSHAN RODRIGUEZ M 278.00 OBESITY 05/13/2010 DARSHAN RODRIGUEZ M 3 11 DEPRESSION 05/13/2010 LIZ CHILD CARE ASSOCIATE TEACHER, ALIRIO R 272.4 HYPERLIPIDEMIA 05/13/2010 LIZ XIAON, ALIRIO R 278.00 OBESITY 05/13/2010 LIZ XIAON, ALIRIO R 3 11 DEPRESSION 03/22/2011 616.4 OTHE R ABSCESS OF VULVA 03/22/2011 623.5 Leuk orrhea Not Specified As Infective 03/22/2011 RAMSES BURT APRN S 616.4 OTHER ABSCESS OF VULVA 03/22/2011 CARMEL CHILD CARE ASSOCIATE TEACHER, RAMSES S 623.5 Leukorrhea Not Specified As Infective 03/22/2011 616.4 OTHE R ABSCESS OF VULVA 03/22/2011 623.5 Leuk orrhea Not Specified As Infective 03/22/2011 NATHALIA HANNA DO K 616.4 OTHER ABSCESS OF VULVA 03/22/2011 NATHALIA HANNA DO K 623.5 Leukorrhea Not Specified As Infective 03/22/2011 LIZ CHILD CARE ASSOCIATE TEACHER, ALIRIO R 616.4 OTHER ABSCESS OF VULVA 03/22/2011 LIZ CHILD CARE ASSOCIATE TEACHER, ALIRIO R 623.5 Leukorrhea Not Specified As Infective 03/22/2011 DARSHAN RODRIGUEZ 616.4 OTHER ABSCESS OF VULVA 03/22/2011 DARSHAN RODRIGUEZ M 623.5 Leukorrhea Not Specified As Infective 03/22/2011 LIZ XIAON, ALIRIO R 616.4 OTHER ABSCESS OF VULVA 03/22/2011 LIZ CHILD CARE ASSOCIATE TEACHER, ALIRIO R 623.5 Leukorrhea Not Specified As Infective 05/26/2011 Ot 719.41 JEFERSON NT PAIN-SHLDER 05/26/2011 Ot 786.01 HYP ERVENTILATION 07/13/2012 381.01 ACU TE SEROUS OTITIS MEDIA 07/13/2012 786.2 COUGH 07/13/2012 KEO BURT APRNA S 381.01 ACUTE SEROUS OTITIS MEDIA 07/13/2012 KEO BURT APRNA S 786.2 COUGH 07/13/2012 381.01 ACU TE SEROUS OTITIS MEDIA 07/13/2012 786.2 COUGH 07/13/2012 NATHALIA HANNA DO K 381.01 ACUTE SEROUS OTITIS MEDIA 07/13/2012 NATHALIA HANNA DO K 786.2 COUGH 07/13/2012 LIZ CHILD CARE ASSOCIATE TEACHER, ALIRIO R 381.01 ACUTE SEROUS OTITIS MEDIA 07/13/2012 LIZ CHILD CARE ASSOCIATE TEACHER, ALIRIO R 786.2 COUGH 07/13/2012 DARSHAN RODRIGUEZ M 381.01 ACUTE SEROUS OTITIS MEDIA 07/13/2012 DARSHAN RODRIGUEZ M 786.2 COUGH 07/13/2012 LIZ CHILD CARE ASSOCIATE TEACHER, ALIRIO R 381.01 ACUTE SEROUS OTITIS MEDIA 07/13/2012 LIZ CHILD CARE ASSOCIATE TEACHER, ALIRIO R 786.2 COUGH 12/03/2012 V74.5 STD SCREEN 12/03/2012 V76.10 FAVIAN AST CANCER SCREENING 12/03/2012 HANNA DO, NATHALIA K V74.5 STD SCREEN 12/03/2012 HANNA DO, NATHALIA K V76.10 BREAST CANCER SCREENING 12/03/2012 LIZ CHILD CARE ASSOCIATE TEACHER, ALIRIO R V74.5 STD SCREEN 12/03/2012 LIZ CHILD CARE ASSOCIATE TEACHER, ALIRIO R V76.10 BREAST CANCER SCREENING 12/03/2012 DARSHAN RODRIGUEZ M V74.5 STD SCREEN 12/03/2012 QUINCY RECEIVING ROOM CLERKDARSHAN M V76.10 BREAST CANCER SCREENING 12/03/2012 LIZ CHILD CARE ASSOCIATE TEACHER, ALIRIO R V74.5 STD SCREEN 12/03/2012 LIZ CHILD CARE ASSOCIATE TEACHER, ALIRIO R V76.10 BREAST CANCER SCREENING 10/03/2013 HANNA DO, NATHALIA K V03.89 MENINGOCOCCAL DX 10/03/2013 HANNA DO, NATHALIA K V04.4 YELLOW FEVER DX 10/03/2013 HANNA DO, NATHALIA K V05.3 HEP A (ADULT) DX 10/03/2013 LIZ CHILD CARE ASSOCIATE TEACHER, ALIRIO R V03.89 MENINGOCOCCAL DX 10/03/2013 LIZ CHILD CARE ASSOCIATE TEACHER, ALIRIO R V04.4 YELLOW FEVER DX 10/03/2013 LIZ CHILD CARE ASSOCIATE TEACHER, ALIRIO R V05.3 HEP A (ADULT) DX 10/03/2013 QUINCY RECEIVING ROOM CLERKDARSHAN M V03.89 MENINGOCOCCAL DX 10/03/2013 QUINCY RECEIVING ROOM CLERKDARSHAN M V04.4 YELLOW FEVER DX 10/03/2013 QUINCY RECEIVING ROOM CLERK, DARSHAN M V05.3 HEP A (ADULT) DX 10/03/2013 LIZ CHILD CARE ASSOCIATE TEACHER, ALIRIO R V03.89 MENINGOCOCCAL DX 10/03/2013 LIZ CHILD CARE ASSOCIATE TEACHER, ALIRIO R V04.4 YELLOW FEVER DX 10/03/2013 LIZ CHILD CARE ASSOCIATE TEACHER, ALIRIO R V05.3 HEP A (ADULT) DX 10/07/2013 HANNA DOCHRISTINAA K V73.81 HPV SCREENING 10/07/2013 HANNA DO, NATHALIA K V76.2 CERVICAL CANCER SCREENING (PAP SMEAR) 10/07/2013 LIZ CHILD CARE ASSOCIATE TEACHER, ALIRIO R V73.81 HPV SCREENING 10/07/2013 LIZ CHILD CARE ASSOCIATE TEACHER, ALIRIO R V76.2 CERVICAL CANCER SCREENING (PAP SMEAR) 10/07/2013 DARSHAN RODRIGUEZ M V73.81 HPV SCREENING 10/07/2013 DARSHAN RODRIGUEZ M V76.2 CERVICAL CANCER SCREENING (PAP SMEAR) 10/07/2013 ALIRIO HILL APRN R V73.81 HPV SCREENING 10/07/2013 ALIRIO HILL APRN R V76.2 CERVICAL CANCER SCREENING (PAP SMEAR) 10/30/2013 ALIRIO HILL APRN R V65.49 OTHER SPECIFIED COUNSELING 10/30/2013 DARSHAN RODRIGUEZ M V65.49 OTHER SPECIFIED COUNSELING 10/30/2013 ALIRIO HILL APRN R V65.49 OTHER SPECIFIED COUNSELING 07/28/2014 QUINCY MALDONADO DARSHAN M 296.32 MO DEPRESSIVE RECURRENT MODERATE 07/28/2014 QUINCY RECEIVING ROOM CLERK, DARSHAN M 300.00 AN ANXIETY UNSPEC 07/28/2014 QUINCY RECEIVING ROOM CLERK, DARSHAN M 314.01 ADHD COMBINED 07/28/2014 DARY HILL APRNINA R 296.32 MO DEPRESSIVE RECURRENT MODERATE 07/28/2014 ALIRIO HILL APRN R 300.00 AN ANXIETY UNSPEC 07/28/2014 ALIRIO HILL APRN R 314.01 ADHD COMBINED 09/24/2014 DARY HILL APRNINA R 626.4 IRREGULAR MENSTRUAL CYCLE 09/24/2014 DARY HILL APRNINA R 719.43 PAIN IN JOINT INVOLVING FOREARM 09/24/2014 DARY HILL APRNINA R V70.0 ROUTINE GENERAL MEDICAL EXAMINATION AT [facility] 09/30/2016 RAMSES BURTP Ot M79.652 PAIN IN LEFT THIGH 10/27/2016 RAMSES BURT HI LOW TRUCK DRIVER Ot M79.652 PAIN IN LEFT THIGH 11/30/2016 RAMSES BURT HI LOW TRUCK DRIVER Ot M79.652 PAIN IN LEFT THIGH 12/05/2016 RAMSES BURT HI LOW TRUCK DRIVER Ot M79.652 PAIN IN LEFT THIGH 12/28/2016 RAMSES BURT HI LOW TRUCK DRIVER Ot M54.5 LOW BACK PAIN 12/28/2016 RAMSES BURT HI LOW TRUCK DRIVER Ot R10.2 PELVIC AND PERINEAL PAIN 01/06/2017 RAMSES BURT HI LOW TRUCK DRIVER Ot M54.5 LOW BACK PAIN 01/06/2017 RAMSES BURT HI LOW TRUCK DRIVER Ot R10.2 PELVIC AND PERINEAL PAIN 12/01/2017 RAMSES BURT HI LOW TRUCK DRIVER Ot M54.5 LOW BACK PAIN 12/01/2017 RAMSES BURTP Ot R10.2 PELVIC AND PERINEAL PAIN 08/22/2019 RAMSES BURT HI LOW TRUCK DRIVER Ot M54.5 LOW BACK PAIN 08/22/2019 RAMSES BURT HI LOW TRUCK DRIVER Ot R10.2 PELVIC AND PERINEAL PAIN 08/27/2019 RAMSES BURT HI LOW TRUCK DRIVER Ot M47.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 OR RADICULOPATHY 08/29/2019 KEO BURTA HI LOW TRUCK DRIVER Ot M47.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 OR RADICULOPATHY 09/24/2019 KEO BURTA HI LOW TRUCK DRIVER Ot M47.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 02 DYSPHASIA Procedures Code Description [place] [address] ROUT INE VENIPUNCTURE 12/03/2012 50266 GC/C HLAM PROBE (STATE) 12/03/2012 11882 TRIC HOMONAS (IN-HOUSE) 12/03/2012 50503 CBC 12/03/2012 63456 LIPI D PANEL 12/03/2012 33403 CMP 12/03/2012 0099315 GF R CALC (RESULT ONLY) 12/03/2012 50873 CORBY MIN D 25-HYDROXY (D2,D3, TOTAL) 12/03/2012 99352 TSH 12/03/2012 95215 CULT URE UROGENITAL 12/05/2012 Q0091 PAP SMEAR OBTAIN SMEAR 10/08/2013 09941 PAP SMEAR 10/10/2013 83957 ROUT INE VENIPUNCTURE 09/24/2014 98740 INSU AMADOR LEVEL 09/24/2014 91019 CBC 09/24/2014 6182703 GF R CALC (RESULT ONLY) 09/24/2014 00342 CMP 09/24/2014 65915 LIPI D PANEL 09/24/2014 98180 TSH 09/24/2014 Results Test Result Range Pap Lb, HPV-hr - 09/28/16 17:16 HPV, high-risk Negative Negative DIAGNOSIS: Comment Specimen adequacy: Comment Clinician provided ICD10: Comment Performed by: Comment . . Note: Comment CBC With Differential/Platelet - 7 18:45 WBC 7.9 x10E3/uL 3.4-10.8 RBC 4.30 x10E6/uL 3.77-5.28 Hemoglobin 12.6 g/dL 11.1-15.9 Hematocrit 37.5 % 34.0-46.6 MCV 87 fL 79-97 MCH 29.3 pg 26.6-33.0 MCHC 33.6 g/dL 31.5-35.7 RDW 14.0 % 12.3-15.4 Platelets 319 x10E3/uL 150-379 Neutrophils 54 % Lymphs 33 % Monocytes 8 % Eos 3 % Basos 1 % Neutrophils (Absolute) 4.3 x10E3/uL 1.4- 7.0 Lymphs (Absolute) 2.6 x10E3/uL 0.7-3.1 Monocytes(Absolute) 0.6 x10E3/uL 0.1-0.9 Eos (Absolute) 0.2 x10E3/uL 0.0-0.4 Baso (Absolute) 0.1 x10E3/uL 0.0-0.2 Immature Granulocytes 1 % Immature Grans (Abs) 0.1 x10E3/uL 0.0-0. 1 C-Reactive Protein, Quant - 12/14/16 18: 45 C-Reactive Protein, Quant 8.9 mg/L 0.0- 4.9 TSH - 11/29/17 08:41 TSH 3.96 mIU/L NRG A1C - 11/29/17 08:41 HEMOGLOBIN A1c 5.4 % of total Hgb <5.7 VITAMIN D, 25-H - 04/15/19 16:26 VITAMIN D,25-OH,TOTAL,IA 31 ng/mL 30-10 0 LIPID PANEL - 07/24/19 08:27 CHOLESTEROL, TOTAL 211 mg/dL <200 HDL CHOLESTEROL 47 mg/dL > OR = 50 TRIGLYCERIDES 180 mg/dL <150 LDL-CHOLESTEROL 132 mg/dL (calc) NRG CHOL/HDLC RATIO 4.5 (calc) <5.0 NON HDL CHOLESTEROL 164 mg/dL (calc) <13 0 A1C - 07/24/19 08:27 HEMOGLOBIN A1c 5.7 % of total Hgb <5.7 TSH - 08/07/19 12:30 TSH 1.52 mIU/L NRG Coronavirus SARS-CoV-2 SO 2019 0 07:50 Coronavirus Ab [Units/volume] in Serum Negative Negative Encounters ACCT No. Visit Date/Time Discharge Status Pt. Type Provider Facility Loc./Unit Complaint [id number] 10/02/2016 11:06:00 Document Registration [id number] 12/16/2016 12:08:00 Document Registration [id number] 11/27/2019 08:46:00 020 23:59:59 CLS Outpatient ABDULLAHI WHITE DO D Via [facility] RAD DYSPHASIA [id number] 08/22/2019 12:05:00 020 23:59:59 CLS Outpatient RAMSES BURTP [facility] RAD LOW BACK PAIN [id number] 04/29/2019 16:42:00 019 23:59:59 CLS Preadmit FAVIAN BURTNDA HI LOW TRUCK DRIVER Via [facility] RAD SCREENING [id number] 04/23/2019 11:34:00 019 23:59:59 CLS Preadmit CARMEL RAMSES HI LOW TRUCK DRIVER [facility] RAD LUMBAGO W/ SCIATICA, LT SIDE [id number] 11/28/2017 09:54:00 018 23:59:59 CLS Preadmit CARMELFAVIANRAMSES HI LOW TRUCK DRIVER Via [facility] RAD SCREENING [id number] 12/30/2016 13:15:00 017 23:59:59 CLS Preadmit CARMEL, RAMSES HI LOW TRUCK DRIVER [facility] RAD M54.5 [id number] 12/22/2016 15:38:00 017 23:59:59 CLS Outpatient RAMSES BURT [facility] RAD PELVIC PAIN R10.2 [id number] 10/20/2016 13:41:00 017 15:15:00 DIS Outpatient RAMSES BURT [facility] REHAB L THIGH PAIN [id number] 09/15/2015 07:47:00 016 23:59:59 CLS Outpatient ALIRIO HILL APRN [facility] QUICK [id number] 12/03/2019 14:00:00 P EN Preadmit WHITE ABDULLAHI MOREIRA Via [facility] ENDO GERD/DYSPHAGIA [id number] 12/02/2019 10:12:[address] Outpatient ABDULLAHI WHITE DO Via [facility] PREOP EGD [id number] 05/26/2011 16:29:00 Document Registration [id number] 11/07/2019 08:00:00 11/07/2019 23:59:5 9 CLS Outpatient RAMSES BURT APRN [facility] [id number] 08/07/2019 11:20:00 Document Registration [id number] 07/24/2019 08:20:00 Document Registration [id number] 04/15/2019 15:40:00 Document Registration [id number] 11/29/2017 08:20:00 Document Registration [id number] 09/24/2014 08:33:00 09/24/2014 23:59: 59 CLS Outpatient ALIRIO HILL APRN [id number] 07/28/2014 11:13:00 07/28/2014 23:59: 59 CLS Outpatient DARSHAN RODRIGUEZ [id number] 10/30/2013 13:45:00 10/30/2013 23:59: 59 CLS Outpatient ALIRIO HILL APRN [id number] 10/07/2013 17:25:00 10/07/2013 23:59: 59 CLS Outpatient NATHALIA HANNA DO [id number] 07/17/2012 14:44:00 07/17/2012 23:59: 59 CLS Outpatient RAMSES BURT APRN [id number] 07/13/2012 14:55:00 07/13/2012 23:59: 59 [facility] Outpatient [id number] 12/03/2012 08:56:00 Document Registration
--- OUTSIDE RECORDS SUMMARY | 2019-12-03 14:11 | XMS REPORT ---
Author Author Sirisha MATHEW Organization [employer] Address Unknown Phone Unavailable Care Team Providers Care Piano Assembler Name Role Phone DARSHAN MATHEW CP Unavailable [...] Problem Unspecified breast screening V76.10 Active Medications No Known Medications Results No Known Results Summary Purpose [employer] Submission
--- OUTSIDE RECORDS SUMMARY | 2019-12-03 14:11 | XMS REPORT ---
Author Author Sirisha Weinstein Organization [facility] Address Unknown Care Team Providers Care Director Of Communications Name Role Phone DARSHAN Weinstein Unavailable PROBLEMS Type Condition ICD9-CM Code CSF45-TL Code Onset Dates Condition S tatus SNOMED Code Problem Obesity E66.9 Active 240012492 Problem Family history of early CAD Z82.49 Ac tive 488672968 Problem Fatigue R53.83 Active 63741374 Problem Establishing care with new doctor, encounter for Z 71.89 Active 456761499 Problem Anxiety disorder, unspecified F41.9 Active 610422167 Problem Attention deficit hyperactivity disorder F90.9 Active 408869697 Problem Weakness R53.1 Active 28167560 Problem Family history of diabetes mellitus Z83.3 Active 399821856 Problem Finger fracture S62.609A Active 1817 1007 Problem Ganglion cyst of left foot M67.472 Act olivia [id number] ALLERGIES Unknown Allergies SOCIAL HISTORY No smoking Hx information available PLAN OF CARE VITAL SIGNS MEDICATIONS Medication Instructions Dosage Frequency Start Date End Date Duration S tatus Adderall 20 mg Orally one tablet in am and one half tablet at noon 1 tablet Jul, 28 days Active RESULTS No Results PROCEDURES No Known procedures IMMUNIZATIONS No Known Immunizations
--- OUTSIDE RECORDS SUMMARY | 2019-12-03 14:11 | XMS REPORT ---
Author Author Sirisha Weinstein Organization [facility] Address Unknown Care Team Providers Care Channeling Machine Runner Name Role Phone DARSHAN Weinstein Unavailable PROBLEMS Type Condition ICD9-CM Code EXH24-QU Code Onset Dates Condition S tatus SNOMED Code Problem Fatigue R53.83 Active 53655120 Problem Family history of diabetes mellitus Z83.3 Active 171207315 Problem Family history of early CAD Z82.49 Ac tive 998053504 Problem Establishing care with new doctor, encounter for Z 71.89 Active 484119951 Problem Obesity E66.9 Active 422656580 Problem Major depressive disorder, recurrent episode wit h anxious distress F33.9 Active 09906255 Problem Attention deficit hyperactivity disorder F90.9 Active 918504957 Problem Ganglion cyst of left foot M67.472 Act olivia 197237963 Problem Weakness R53.1 Active 45071881 Problem Anxiety disorder, unspecified F41.9 Active 363878613 Problem Finger fracture S62.609A Active 1817 1007 ALLERGIES No Information ENCOUNTERS Encounter Location Date Diagnosis [facility] [address] [facility] [id number] [address] [place] [address] October, [facility] [address] [facility] [id number] [address] [place] [address] Jun, Attention deficit hyperactiv ity disorder F90.9 [facility] [address] [facility] [id number] [address] [place] [id number] Jun, Attention deficit hyperactiv ity disorder F90.9 ; Major depressive disorder, recurrent episode with anxious distress F33.9 and BMI 45.0-49.9, adult Z68.42 [facility] [address] [facility] [id number] [address] [place] [address] May, Major depressive disorder, r ecurrent episode with anxious distress F33.9 [facility] [address] [id number] [address] [place] [address] Apr, Major depressive disorder, r ecurrent episode with anxious distress F33.9 and Attention deficit hyperactivity disorder F90.9 [facility] [address] [id number] [address] [place] [address] Apr, [facility] [address] [id number] [address] [place] [address] Mar, Attention deficit hyperactiv ity disorder F90.9 and Major depressive disorder, recurrent episode with anxious distress F33.9 [facility] [address] [id number] [address] [place] [address] Jan, [facility] [address] [id number] [address] [place] [address] Dec, Anxiety disorder, unspecifie d F41.9 ; Attention deficit hyperactivity disorder F90.9 and Major depressive disorder, recurrent episode with anxious distress F33.9 [facility] [address] [id number] [address] [place] [address] Dec, Acute midline low back pain without sciatica M54.5 [facility] [address] [id number] [address] [place] [address] Dec, [facility] [address] [id number] [address] [place] [address] Dec, Pelvic pain R10.2 and Acute midline low back pain without sciatica M54.5 [facility] [address] [id number] [address] [place] [address] Nov, [facility] [address] [id number] [address] [place] [address] October, [facility] [address] [id number] [address] [place] [address] October, [facility] [address] [id number] [address] [place] [address] 19 Apr, 2017 Well woman exam Z01.419 and Cervical cancer screening Z12.4 [facility] [address] [facility] [id number] [address] [place] [address] Sep, [facility] [address] [facility] [id number] [address] [place] [address] Sep, Plantar fasciitis, right M72 .2 ; Left foot pain M79.672 and Trigger point of left side of body M79.1 [facility] [address] [facility] [id number] [address] [place] [address] Aug, [facility] [address] [facility] [id number] [address] [place] [address] Aug, Anxiety disorder, unspecifie d F41.9 ; Attention deficit hyperactivity disorder F90.9 and Major depressive disorder, recurrent episode with anxious distress F33.9 [place] [address] [place] [id number] [address] [place] [address] Jul, [place] [address] [place] [id number] [address] [place] [address] Jun, Attention deficit disorder o f adult with hyperactivity F90.9 and Major depressive disorder, recurrent episode with anxious distress F33.9 [place] [address] [place] [id number] [address] [place] [address] Feb, Anxiety disorder, unspecifie d F41.9 ; Major depression F32.9 and Attention deficit hyperactivity disorder F90.9 [place] [address] [facility] [id number] [address] [place] [address] Jan, [facility] [address] [facility] [id number] [address] [place] [address] Dec, [place] [address] [place] [id number] [address] [place] [address] Nov, [facility] [address] [facility] [id number] [address] [place] [address] October, Fatigue, unspecified type R5 3.83 [place] [id number] [place] [address] October, [facility] [address] [address] October, Finger fracture S62.609A [facility] [address] [place] [id number] [address] [place] [address] Sep, [facility] [address] [address] Sep, Finger fracture S62.609A [facility] [address] [address] Sep, [facility] [address] [address] Sep, [facility] [address] [address] Aug, Establishing care with [facility], encounter for Z71.89 ; Fatigue R53.83 ; Weakness R53.1 ; Ganglion cyst of left foot M67.472 ; Obesity E66.9 ; Family history of diabetes mellitus Z83.3 and Family history of early CAD Z82.49 [facility] [address] [place] [id number] [address] [place] [address] Aug, [facility] [address] [place] [id number] [address] [place] [address] Aug, Fatigue R53.83 [facility] [address] [place] [id number] [address] [place] [address] Aug, Anxiety disorder, unspecifie d F41.9 ; Major depression F32.9 and Attention deficit hyperactivity disorder F90.9 [facility] [address] [place] [id number] [address] [place] [address] Jul, [facility] [address] [place] [id number] [address] [place] [address] Jun, [facility] [address] [place] [address] May, [facility] [address] [id number] [address] [place] [address] Apr, [facility] [address] [facility] [id number] [address] [place] [address] Apr, Attention deficit hyperactiv ity disorder F90.9 ; Major depression F32.9 and Anxiety disorder, unspecified F41.9 [facility] [address] [facility] [id number] [address] [place] [address] Mar, [facility] [address] [facility] [id number] [address] [place] [address] Mar, [facility] [address] [facility] [id number] [address] [place] [address] Feb, [facility] [address] [facility] [id number] [address] [place] [address] Feb, ADHD (attention deficit hype ractivity disorder) 314.01 ; Major depressive disorder, recurrent episode, moderate 296.32 and Anxiety state, unspecified 300.00 [facility] [address] [facility] [id number] [address] [place] [address] Jan, [facility] [address] [facility] [id number] [address] [place] [address] Dec, [facility] [address] [facility] [id number] [address] [place] [address] Nov, [facility] [address] [facility] [id number] [address] [place] [phone] October, [facility] [address] [facility] [id number] [address] [place] [address] October, Anxiety state, unspecified 3 00.00 ; Attention deficit disorder of childhood with hyperactivity 314.01 and Major depressive disorder, recurrent episode, moderate 296.32 [facility] [address] [facility] [id number] [address] [place] [address] Sep, [facility] [address] [id number] [address] [place] [address], [place] [address] Sep, [facility] [address] [id number] [address] [place] [address], [place] [address] Aug, [facility] [address] [id number] [address] [place] [address], [place] [address] Aug, [facility] [address] [id number] [address] [place] [address], [place] [address] Jul, [facility] [address] [id number] [address] [place] [address], [place] [address] Jul, [facility] [address] [id number] [address] [place] [address], [place] [address] October, [facility] [address] [id number] [address] [place] [address], [place] [address] October, [facility] [address] [id number] [address] [place] [address], [place] [address] October, [facility] [address] [id number] [address] [place] [address], [place] [address] October, [facility] [address] [id number] [address] [place] [address], [place] [address] October, [facility] [address] [id number] [address] [place] [address], [place] [address] Sep, [facility] [address] [id number] [address] [place] [address], [place] [address] Sep, [facility] [address] [id number] [address] [place] [address], [place] [address] Sep, [facility] [address] [id number] [address] [place] [address], [place] [address] Sep, [facility] [address] [id number] [address] [place] [address], [place] [address] Dec, [facility] [address] [id number] [address] [place] [address], [place] [address] Dec, [facility] [address] [id number] [address] [place] [address], [place] [address] Nov, [facility] [address] [id number] [address] [place] [address], [place] [address] Nov, [facility] [address] [id number] [address] [place] [address], [place] [address] Nov, [facility] [address] [id number] [address] [place] [address], [place] [address] Nov, [facility] [address] [id number] [address] [place] [address], [place] [address] Jul, [facility] [address] [id number] [address] [place] [address], [place] [address] Jul, [facility] [address] [id number] [address] [place] [address], [place] [address] Jul, [facility] [address] [id number] [address] [place] [address], [place] [address] Jul, [facility] [address] [id number] [address] [place] [address], [place] [address] 17 Mar, 2011 [facility] [address] [id number] [address] [place] [address], [place] [address] 14 Mar, 2011 [facility] [address] [id number] [address] [place] [address] 14 Mar, 2011 [facility] [address] [id number] [address] [place] [id number] 11 Mar, 2011 [facility] [address] [id number] [address] [place] [address] 11 Mar, 2011 [facility] [address] [id number] [address] [place] [address], [place] [address] 14 May, 2010 [facility] [address] [id number] [address] [place] [address], [place] [address] 14 May, 2010 [facility] [address] [id number] [address] [place] [address] May, [facility] [address] [facility] [id number] [address] [place] [address] Mar, [facility] [address] [facility] [id number] [address] [place] [address] Mar, [facility] [address] [facility] [id number] [address] [place] [address] May, IMMUNIZATIONS No Known Immunizations SOCIAL HISTORY Never Assessed REASON FOR VISIT adderall refill PLAN OF CARE VITAL SIGNS MEDICATIONS Medication Instructions Dosage Frequency Start Date End Date Duration S kuldip Adderall 20 mg Orally one tablet in [...]
--- OUTSIDE RECORDS SUMMARY | 2019-12-03 14:11 | XMS REPORT ---
Author Author Sirisha BURT Organization [facility] Address [address] [place] [address] Care Team Providers Care Residential Insurance Inspector Name Role Phone RAMSES BURT Unavailable PROBLEMS Type Condition ICD9-CM Code LWS17-KC Code Onset Dates Condition S tatus SNOMED Code Problem Fatigue R53.83 Active 74082480 Problem Family history of diabetes mellitus Z83.3 Active 572386526 Problem Family history of early CAD Z82.49 Ac tive 298767192 Problem Establishing care with new doctor, encounter for Z 71.89 Active 637028561 Problem Obesity E66.9 Active 397557303 Problem Major depressive disorder, recurrent episode wit h anxious distress F33.9 Active 07801677 Problem Attention deficit hyperactivity disorder F90.9 Active 485710279 Problem Ganglion cyst of left foot M67.472 Act olivia 665138377 Problem Weakness R53.1 Active 44925583 Problem Anxiety disorder, unspecified F41.9 Active 000444844 Problem Finger fracture S62.609A Active 1817 1007 ALLERGIES No Known Allergies ENCOUNTERS Encounter Location Date Diagnosis [place] [address] [facility] [id number] [address] [place] [address] October, [facility] [address] [facility] [id number] [address] [place] [address] Jun, Attention deficit hyperactiv ity disorder F90.9 [facility] [address] [facility] [id number] [address] [place] [address] Jun, Attention deficit hyperactiv ity disorder F90.9 ; Major depressive disorder, recurrent episode with anxious distress F33.9 and BMI 45.0-49.9, adult Z68.42 [facility] [address] [facility] [id number] [address] [place] [address] May, Major depressive disorder, r ecurrent episode with anxious distress F33.9 [facility] [address] [id number] [address] [place] [address] Apr, Major depressive disorder, r ecurrent episode with anxious distress F33.9 and Attention deficit hyperactivity disorder F90.9 [facility] [address] [id number] [address] [place] [address] Apr, [facility] [address] [id number] [address] [place] [address] Mar, Attention deficit hyperactiv ity disorder F90.9 and Major depressive disorder, recurrent episode with anxious distress F33.9 [facility] [address] [id number] [address] [place] [address] Jan, [facility] [address] [id number] [address] [place] [address] Dec, Anxiety disorder, unspecifie d F41.9 ; Attention deficit hyperactivity disorder F90.9 and Major depressive disorder, recurrent episode with anxious distress F33.9 [facility] [address] [id number] [address] [place] [address] Dec, Acute midline low back pain without sciatica M54.5 [facility] [address] [id number] [address] [place] [address] Dec, [facility] [address] [id number] [address] [place] [address] Dec, Pelvic pain R10.2 and Acute midline low back pain without sciatica M54.5 [facility] [address] [id number] [address] [place] [address] Nov, [facility] [address] [id number] [address] [place] [address] October, [facility] [address] [id number] [address] [place] [address] October, [facility] [address] [id number] [address] [place] [address] Sep, Well woman exam Z01.419 and Cervical cancer screening Z12.4 [facility] [address] [facility] [id number] [address] [place] [address] Sep, [facility] [address] [facility] [id number] [address] [place] [address] Sep, Plantar fasciitis, right M72 .2 ; Left foot pain M79.672 and Trigger point of left side of body M79.1 [place] [address] [facility] [id number] [address] [place] [address] Aug, [place] [address] [facility] [id number] [address] [place] [address] Aug, Anxiety disorder, unspecifie d F41.9 ; Attention deficit hyperactivity disorder F90.9 and Major depressive disorder, recurrent episode with anxious distress F33.9 [place] [address] [place] [id number] [address] [place] [address] Jul, [place] [address] [place] [id number] [address] [place] [address] Jun, Attention deficit disorder o f adult with hyperactivity F90.9 and Major depressive disorder, recurrent episode with anxious distress F33.9 [place] [address] [facility] [id number] [address] [place] [address] Feb, Anxiety disorder, unspecifie d F41.9 ; Major depression F32.9 and Attention deficit hyperactivity disorder F90.9 [place] [address] [facility] [id number] [address] [place] [address] Jan, [place] [address] [facility] [id number] [address] [place] [address] Dec, [place] [address] [facility] [id number] [address] [place] [address] Nov, [place] [address] [facility] [id number] [address] [place] [address] October, Fatigue, unspecified type R5 3.83 [facility] [address] [place] [id number] [address] [place] [address] October, [facility] [address] [address] October, Finger fracture S62.609A [facility] [address] [address] Sep, [facility] [address] [address] Sep, Finger fracture S62.609A [facility] [address] [address] Sep, [place] [address] [address] Sep, [place] [address] [address] Aug, Establishing care with chi khan, encounter for Z71.89 ; Fatigue R53.83 ; Weakness R53.1 ; Ganglion cyst of left foot M67.472 ; Obesity E66.9 ; Family history of diabetes mellitus Z83.3 and Family history of early CAD Z82.49 [place] [address] [address] Aug, [facility] [address] [place] [id number] [address] [place] [address] Aug, Fatigue R53.83 [facility] [address] [address] Aug, Anxiety disorder, unspecifie d F41.9 ; Major depression F32.9 and Attention deficit hyperactivity disorder F90.9 [facility] [address] [place] [id number] [address] [place] [address] Jul, [facility] [address] [address] Jun, [facility] [address] [facility] [id number] [address] [place] [address] May, [facility] [address] [facility] [id number] [address] [place] [address] Apr, [facility] [address] [facility] [id number] [address] [place] [address] Apr, Attention deficit hyperactiv ity disorder F90.9 ; Major depression F32.9 and Anxiety disorder, unspecified F41.9 [facility] [address] [facility] [id number] [address] [place] [address] Mar, [facility] [address] [facility] [id number] [address] [place] [address] Mar, [facility] [address] [facility] [id number] [address] [place] [address] Feb, [facility] [address] [facility] [id number] [address] [place] [address] Feb, ADHD (attention deficit hype ractivity disorder) 314.01 ; Major depressive disorder, recurrent episode, moderate 296.32 and Anxiety state, unspecified 300.00 [facility] [address] [facility] [id number] [address] [place] [address] Jan, [facility] [address] [facility] [id number] [address] [place] [address] Dec, [facility] [address] [facility] [id number] [address] [place] [address] Nov, [facility] [address] [facility] [id number] [address] [place] [address] October, [facility] [address] [facility] [id number] [address] [place] [address] October, Anxiety state, unspecified 3 00.00 ; Attention deficit disorder of childhood with hyperactivity 314.01 and Major depressive disorder, recurrent episode, moderate 296.32 [facility] [address] [facility] [id number] [address] [place] [address] Sep, [facility] [address] [id number] [facility] [address] Sep, [facility] [address] [id number] [facility] [place] [address] Aug, [facility] [address] [id number] [facility] [place] [address] Aug, [facility] [address] [id number] [address] [place] [address], [place] [address] Jul, [facility] [address] [id number] [address] [place] [address], [place] [address] Jul, [facility] [address] [id number] [address] [place] [address], [place] [address] October, [facility] [address] [id number] [address] [place] [address], [place] [address] October, [facility] [address] [id number] [address] [place] [address], [place] [address] October, [facility] [address] [id number] [address] [place] [address], [place] [address] October, [facility] [address] [id number] [address] [place] [address], [place] [address] October, [facility] [address] [id number] [address] [place] [address], [place] [address] Sep, [facility] [address] [id number] [address] [place] [address], [place] [address] Sep, [facility] [address] [id number] [address] [place] [address], [place] [address] Sep, [facility] [address] [id number] [address] [place] [address], [place] [address] Sep, [facility] [address] [id number] [address] [place] [address], [place] [address] Dec, [facility] [address] [id number] [address] [place] [address], [place] [address] Dec, [facility] [address] [id number] [address] [place] [address], [place] [address] Nov, [facility] [address] [id number] [address] [place] [address], [place] [address] Nov, [facility] [address] [id number] [address] [place] [address], [place] [address] Nov, [facility] [address] [id number] [address] [place] [address], [place] [address] Nov, [facility] [address] [id number] [address] [place] [address], [place] [address] Jul, [facility] [address] [id number] [address] [place] [address], [place] [address] Jul, [facility] [address] [id number] [address] [place] [address], [place] [address] Jul, [facility] [address] [id number] [address] [place] [address], [place] [address] Jul, [facility] [address] [id number] [address] [place] [address], [place] [address] 17 Mar, 2011 [facility] [address] [id number] [address] [place] [address], [place] [address] 14 Mar, 2011 [facility] [address] [id number] [address] [place] [address], [place] [address] 14 Mar, 2011 [facility] [address] [id number] [address] [place] [address], [place] [address] 11 Mar, 2011 [facility] [address] [id number] [address] [place] [address], [place] [address] 11 Mar, 2011 [facility] [address] [id number] [address] [place] [address], [place] [address] 14 May, 2010 [facility] [address] [id number] [address] [place] [address], [place] [address] May, [facility] [address] [facility] [id number] [address] [place] [address] May, [facility] [address] [facility] [id number] [address] [place] [address] Mar, [facility] [address] [facility] [id number] [address] [place] [address] Mar, [facility] [address] [facility] [id number] [address] [place] [address] May, IMMUNIZATIONS No Known Immunizations SOCIAL HISTORY Never Assessed REASON FOR VISIT hip pain that can change from one hip to the other since the Josse Nix PLAN OF CARE Activity Details Follow Up 2 Weeks Reason:back pain VITAL SIGNS Height 62 in 2016-12-14 Weight 260.2 lbs 2016-12-14 Temperature 99.7 degrees Fahrenheit 2016-12-14 Heart Rate 82 bpm 2016-12-14 Respiratory Rate 20 2016-12-14 BMI 47.59 kg/m2 2016-12-14 Blood pressure systolic 136 mmHg 2016-12-14 Blood pressure diastolic 78 mmHg 2016-12-14 MEDICATIONS Medication Instructions Dosage Frequency Start Date End Date Duration S tatus Adderall 20 mg Orally one tablet in am and one half tablet at noon 1 tablet October, 28 days Active Klonopin 1 MG Orally as needed once a day 1 tablet 24h Aug, 30 days Active Cymbalta 30 MG TAKE ONE CAPSULE BY MOUTH ONCE DAILY. 30 Active Tramadol HCl 50 mg Orally every 6 hrs 1 tablet as needed 6h Dec, Active RESULTS Name Result Date Reference Range CBC 2016-12-14 WBC 7.9 3.4-10.8 RBC 4.30 3.77-5.28 Hemoglobin 12.6 11.1-15.9 Hematocrit 37.5 34.0-46.6 MCV 87 79-97 MCH 29.3 26.6-33.0 MCHC 33.6 31.5-35.7 RDW 14.0 12.3-15.4 Platelets 319 150-379 Neutrophils 54 Lymphs 33 Monocytes 8 Eos 3 Basos 1 Neutrophils (Absolute) 4.3 1.4-7.0 Lymphs (Absolute) 2.6 0.7-3.1 Monocytes(Absolute) 0.6 0.1-0.9 Eos (Absolute) 0.2 0.0-0.4 Baso (Absolute) 0.1 0.0-0.2 Immature Granulocytes 1 Immature Grans (Abs) 0.1 0.0-0.1 CRP 2016-12-14 C-Reactive Protein, Quant 8.9 0.0-4. 9 ESR/SED RATE (IN HOUSE) 2016-12-14 SED/ESR RATE 35 Lot # [id number] Exp Date 11/09/17 0 - 20 mm Xray : Spine, Lumbar 2-3 views (IN HOUSE) 12-14 Xray : Pelvis 1-2 views (IN HOUSE) 2016-12-14 Ultrasound : Pelvic, COMPLETE (REFLEX [id number]) 2016-12-22 PROCEDURES Procedure Date Ordered Result Body Site X-RAY EXAM OF PELVIS December 14, 2016 X-RAY EXAM OF LOWER SPINE December 14, 2016 RBC SED RATE, NONAUTOMATED December 14, 2016 COMPLETE CBC W/AUTO DIFF WBC December 14, 2016 VENIPUNCT, ROUTINE* December 14, 2016 C-REACTIVE PROTEIN December 14, 2016 INSTRUCTIONS MEDICATIONS ADMINISTERED No Known Medications MEDICAL (GENERAL) HISTORY Type Description Date Medical History ADD Medical History Depression Medical History High cholesterol Medical History Vitamin D deficiency Surgical History 1997 Surgical History Left ankle surgery Hospitalization History Stitches in right hand finger next t o pinky Hospitalization History Surgery
--- OUTSIDE RECORDS SUMMARY | 2019-12-03 14:11 | XMS REPORT ---
Author Author Sirisha BURT Organization [employer] Address Unknown Phone Unavailable Care Team Providers Care Book Mender Name Role Phone RAMSES BURT CP Unavailable [...] 300.00 A ctive Medications No Known Medications Procedures Procedure Coding System Code Date X-RAY EXAM OF FINGER(S) CPT-4 64463 October 12, 2015 Results No Known Results Summary Purpose [employer] Submission
--- OUTSIDE RECORDS SUMMARY | 2019-12-03 14:11 | XMS REPORT ---
Author Author Sirisha Weinstein Organization [facility] Address Unknown Care Team Providers Care Cloth Shrinker Name Role Phone DARSHAN Weinstein Unavailable PROBLEMS Type Condition ICD9-CM Code RJU12-UV Code Onset Dates Condition S tatus SNOMED Code Problem Obesity E66.9 Active 668153071 Problem Family history of early CAD Z82.49 Ac tive 367313085 Problem Fatigue R53.83 Active 75258834 Problem Establishing care with new doctor, encounter for Z 71.89 Active 752104080 Problem Anxiety disorder, unspecified F41.9 Active 310846610 Problem Attention deficit hyperactivity disorder F90.9 Active 891949110 Problem Weakness R53.1 Active 10088934 Problem Family history of diabetes mellitus Z83.3 Active 150199877 Problem Finger fracture S62.609A Active 1817 1007 Problem Ganglion cyst of left foot M67.472 Act olivia [id number] ALLERGIES No Known Allergies SOCIAL HISTORY Never Assessed PLAN OF CARE Activity Details Follow Up 3 Months Reason: VITAL SIGNS Height 62 in 2016-08-10 Weight 254.0 lbs 2016-08-10 Heart Rate 76 bpm 2016-08-10 Respiratory Rate 20 2016-08-10 BMI 46.45 kg/m2 2016-08-10 Blood pressure systolic 110 mmHg 2016-08-10 Blood pressure diastolic 66 mmHg 2016-08-10 MEDICATIONS Medication Instructions Dosage Frequency Start Date End Date Duration S tatus Klonopin 1 MG Orally as needed once a day 1 tablet 24h Aug, 30 days Active Cymbalta 60 MG Orally Once a day 1 capsule 24h Apr, 30 days Active Cymbalta 30 MG Orally Once a day 1 capsule 24h Aug, 30 days Active Adderall 20 mg Orally one tablet in am and one half tablet at noon 1 tablet Jul, 30 days Active RESULTS No Results PROCEDURES [...]
--- NOTE | 2019-12-03 17:37 | OPERATIVE REPORT ---
DATE OF SERVICE: 12/03/2019 PREOPERATIVE DIAGNOSES: Epigastric abdominal pain and dysphagia. POSTOPERATIVE DIAGNOSIS: Gastritis. SURGEON: Abdullahi Renee DO PROCEDURE: EGD with biopsies. ANESTHESIA: Per MDA. ESTIMATED BLOOD LOSS: None. COMPLICATIONS: None. SPECIMENS: Antrum, body and GE junction. INDICATIONS: The patient is a 44-year-old female with need for EGD for dysphagia and GERD. She understands risks and benefits of procedure and wished to proceed with procedure. Consent was signed in the chart. DESCRIPTION OF PROCEDURE: The patient was taken to the endoscopy suite, placed in left lower recumbent position. Timeout was performed. Scope was inserted in mouth, down the esophagus, stomach and into the duodenum without difficulty. There were no polyps, masses or ulcerations within the duodenum. Scope was slowly retracted back into the stomach where it was further insufflated. Slight erythematous changes present throughout the stomach. No polyps, masses or ulcerations. Biopsy of the antrum and body were obtained. Scope was retroflexed noting no other pathology. Scope was returned to its normal position, slowly withdrawn to the distal esophagus, which had normal appearance. No polyps, masses or ulcerations, no erythematous changes. Biopsy of the GE junction was obtained. Scope was then slowly retracted back until completely removed, noting no other pathology. The patient tolerated procedure well without any complications. She was taken to recovery room in stable condition. RECOMMENDATIONS: The patient will be started on Protonix 40 mg daily. We will see her back in the office in 2 weeks. Also provided ulcer and gastritis diet. We will see how she is doing at that time. Job ID: [id number] DocumentID: [id number] Dictated Date: 12/03/2019 13:24:13 Lift Supervisor Date: 12/03/2019 17:37:10 Dictated By: ABDULLAHI RENEE DO
== END 2019-12-03 13:55 | disposition home or self-care (01) ==
LOC: ENDO 12:24
PROVIDERS: ATTEND Surgery
DX: K29.50 Unspecified chronic gastritis without bleeding (principal); K21.0 Gastro-esophageal reflux disease with esophagitis; G43.909 Migraine, unspecified, not intractable, without status migrainosus; F41.9 Anxiety disorder, unspecified; F90.9 Attention-deficit hyperactivity disorder, unspecified type; Z87.891 Personal history of nicotine dependence; E66.01 Morbid (severe) obesity due to excess calories; Z68.42 Body mass index [BMI] 45.0-49.9, adult
CPT/HCPCS: 84703; 88305

== ENCOUNTER → 2019-12-04 | Outpatient (CLI) | payer OTHER ==
[~2019-12-04] MED LIST changes: +PANT40TA2 PO
[2019-12-04 09:25] LABS: BASOPHILS % (AUTO) 0 % (0-10); EOSINOPHILS # (AUTO) 0.2 10^3/uL (0.0-0.3); EOSINOPHILS % (AUTO) 2 % (0-10); HEMATOCRIT 38 % (35-52); HEMOGLOBIN 13.1 G/DL (11.5-16.0); LYMPHOCYTES # (AUTO) 2.4 X 10^3 (1.0-4.0); LYMPHOCYTES % (AUTO) 33 % (12-44); MEAN CORPUSCULAR HEMOGLOBIN 30 PG (25-34); MEAN CORPUSCULAR HGB CONC 35 G/DL (32-36); MEAN CORPUSCULAR VOLUME 86 FL (80-99); MEAN PLATELET VOLUME 10.3 FL (7.4-10.4); MONOCYTES # (AUTO) 0.5 X 10^3 (0.0-1.0); MONOCYTES % (AUTO) 6 % (0-12); NEUTROPHILS # (AUTO) 4.2 X 10^3 (1.8-7.8); NEUTROPHILS % (AUTO) 58 % (42-75); PLATELET COUNT 266 10^3/uL (130-400); RED CELL DISTRIBUTION WIDTH 13.1 % (10.0-14.5); WHITE BLOOD COUNT 7.3 10^3/uL (4.3-11.0)
[2019-12-04 09:43] LABS: ALANINE AMINOTRANSFERASE 24 U/L (0-55); ALBUMIN 4.2 GM/DL (3.2-4.5); ALKALINE PHOSPHATASE 102 U/L (40-136); BILIRUBIN,TOTAL 0.4 MG/DL (0.1-1.0); BUN/CREATININE RATIO 16; CALCIUM 9.1 MG/DL (8.5-10.1); CARBON DIOXIDE 23 MMOL/L (21-32); CHLORIDE 105 MMOL/L (98-107); GFR ESTIMATED > 60; GLUCOSE 115 MG/DL (70-105); POTASSIUM 3.9 MMOL/L (3.6-5.0); SODIUM 138 MMOL/L (135-145); TOTAL PROTEIN 7.6 GM/DL (6.4-8.2)
[2019-12-04 10:05] LABS: ERYTHROCYTE SEDIMENTATION RATE 32 MM/HR (0-20)
== END ==
LOC: LAB 08:39
DX: M25.50 Pain in unspecified joint (principal); K21.9 Gastro-esophageal reflux disease without esophagitis; R19.7 Diarrhea, unspecified; M06.89 Other specified rheumatoid arthritis, multiple sites; M13.0 Polyarthritis, unspecified; Z79.899 Other long term (current) drug therapy
CPT/HCPCS: 36415; 80053; 82784; 83516; 85025; 85652; 86038; 86141; 86200; 86226; 86235; 86256; 86431; 86812

== ENCOUNTER → 2020-01-20 | Outpatient (CLI) | payer OTHER | LOC: LAB 11:07 | PROVIDERS: ATTEND Surgery | DX: B96.81 Helicobacter pylori [H. pylori] as the cause of diseases classified elsewhere (principal) | CPT/HCPCS: 36415; 87338 ==